=== PATIENT | male | born 1955 | race Caucasian/White ===

== ENCOUNTER 2019-01-09 06:58 | Inpatient (IN) ==
[2019-01-09] MEDS ORDERED: ONDANSETRON INJ 2 MG/ML 2 ML VIAL IV PRN (07:42)
[2019-01-09] MEDS ORDERED: ACETAMINOPHEN 325 MG TAB PO PRN (07:42)
--- OUTSIDE RECORDS SUMMARY | 2019-01-09 07:43 | External Medical Summary | Continuity of Care Document ---
:1955 Author Name Ligia Toribio Address Unavailable Unavailable , Care Team Providers Name Role Phone Tammy [email or web address] PCP, UNKNOWN Unavailable Unavailable Problems Active medical history not documented Allergies and Adverse Reactions Allergy history not documented Medications Medications not documented Procedures Procedures not documented Immunizations Immunizations not documented Plan of Treatment Planned Observations Planned Goals not documented Results No Known Results Results not documented
[2019-01-09] MEDS ORDERED: PNEUMOCOCCAL ADMINISTRATION CHARGE ONE (09:15)
[2019-01-09] MEDS ORDERED: PNEUMOCOCCAL POLYSACCHARIDES 25 MCG/0.5 ML VIAL/SYR IM ONE (09:15)
[2019-01-09] MEDS ORDERED: CARVEDILOL 6.25 MG TAB PO STA (09:30)
--- NOTE | 2019-01-09 09:45 | History & Physical Report ---
Date of Service January 09, 2019 Assessment & Plan (1) Dyspnea: likely due to acute bronchitis, no pneumonia seen on CXR no crackles on exam, just some scattered rhonchi and wheezing bilaterally no rales, no significant edema will treated with Solu Medrol 40 q12, Duoneb complete a 5 day course of Zithromax 500mg daily, got a dose this morning normal WBC, no fever (2) Bronchitis: acute bronchitis with dyspnea, see above treat with Solu Medrol, duonebs, Zithromax (3) Atrial fibrillation: rates controlled, continue Coreg on Coumadin, INR 2.2 (4) DM type 2 (diabetes mellitus, type 2): hyperglycemia due to the Solu Medrol 125mg he got this morning apparently got Lantus 30 units this morning at [facility], will give additional 30 units of Lantus Novolog SS, may need to tighten further depending on sugars (5) HTN (hypertension): BP improved after getting Zestril and Coreg (6) Obesity: recommend weight loss (7) Dyslipidemia: continue Zocor (8) Cough: due to bronchitis, is productive of green sputum History of Present Illness Chief Complaint: cough and shortness of breath Primary Care Provider: NO PCP 63 yo male with history of HTN, chronic atrial fibrillation, insulin dependent diabetes, was transferred to [facility] for acute shortness of breath and one week of cough. The patient says that he has been coughing for about a week. Productive of some green sputum. No blood. No chest pain but feels that chest is tight and congested. He has experienced some night sweats but no fevers or chills. He denies muscle aches, rashes. His appetite has been intact and he has not had nausea or diarrhea. He has not noticed any swelling in his legs. He has been compliant with his medications. After a few days when the symptoms did not get better he went to his doctor. He was given a steroid injection in the office, given an albuterol inhaler. He said that his symptoms did not get better so he went to the [facility]. No evidence of testing there, but he was given Solu Medrol, Lasix 40mg IV, Azithromcyin 500mg and nebulizer treatment. He responded well to the Lasix, diuresed well. There was concerns for some heart failure and he was transferred to [facility] for direct admission. He has no history of CHF. He has chronic afib, rate controlled on Coreg and anticoagulated on Coumadin. He takes his Truclitiy and Lantus 30 units in the morning. Of note he was given the Lantus 30 units in [facility]. He does not keep a close track of his sugars. Home medications include Lasix, Zestril, Coreg, Coumadin, Zocor, Trulicity and Lantus. 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 Beliefs That Will Affect Care: None Current Living Situation: Spouse Other Information That Helps Us Care for You: No Feels Safe at Home: Yes Smoking Status: Never smoker Do You Dip or Chew Tobacco: No Hx Alcohol Use: Yes Alcohol type: beer Hx Substance Use: No Review of Systems Review of Systems: All systems reviewed & are unremarkable except as noted in HPI & below Constitutional: + sweats, + body aches and + weakness; no fever, no chills, no fatigue and no anorexia Respiratory: + cough, + dyspnea, + dyspnea on exertion, + sputum production and + wheezing; no pain with cough Cardiovascular: + dyspnea and + dyspnea at rest; no chest pain, no orthopnea, no palpitations, no syncope and no edema Gastrointestinal: no abdominal pain, no nausea, no vomiting, no constipation and no diarrhea/loose stools Genitourinary: no dysuria, no difficulty urinating, no urinary frequency, no u rinary hesitancy, no urinary incontinence and no nocturia Musculoskeletal: no back pain and no swelling Integumentary: no rash Physical Exam Constitutional: WD/WN, vitals as above + obese Eyes: PERRL, conjunctivae normal, anicteric sclerae ENMT: external ear and nose normal, oropharynx normal Neck: trachea midline, no thyromegaly Respiratory: normal respiratory effort and + cough; no respiratory distress and no labored breathing Auscultation: + rhonchi and + wheezes (bilaterally); no crackles and no rales Cardiovascular: RRR, no murmur, no edema Gastrointestinal (Abdomen): normal bowel sounds, soft, nontender, no hepatosplenomegaly Musculoskeletal: no cyanosis or clubbing, extremities motor strength 5/5 Skin: no rashes, warm and dry Neurologic: patellar DTR's 2+ bilat, sensation intact and PERRL, EOMI, accommodation nl, no face palsy, no dysarthria Psychiatric: A+Ox3, euthymic affect Lymphatic: no cervical or axillary lymphadenopathy Results & Data Vital Signs (Past 12 Hours) Vital Signs Temp Pulse Resp BP Pulse Ox 01/09/19 07:52 36.8 C 88 18 165/106 H 95 Laboratory Results Laboratory Results - last 24 hr 01/09/19 01/09/19 01/09/19 08:05 08:33 10:02 WBC 8.96 RBC 3.86 L Hgb 12.3 L Hct 35.1 L MCV 90.9 MCH 31.9 MCHC 35.0 RDW Std Deviation 50.8 H RDW Coeff of Viola 15.3 H Plt Count 135 MPV 9.8 PT INR Sodium Potassium Chloride Carbon Dioxide Anion Gap BUN Creatinine Est Cr Clr Drug Dosing Est GFR ( Amer) Est GFR (Non-Af Amer) BUN/Creatinine Ratio Glucose POC Glucose 245 H Calcium Troponin I Beta-Hydroxybutyric Acd Hepatitis C Ab Screen Neg 01/09/19 01/09/19 01/09/19 10:02 10:02 11:35 WBC RBC Hgb Hct MCV MCH MCHC RDW Std Deviation RDW Coeff of Viola Plt Count MPV PT 21.2 H INR 2.2 H Sodium 131 L Potassium 4.1 Chloride 97 L Carbon Dioxide 26 Anion Gap 8.0 BUN 28 H Creatinine 1.28 Est Cr Clr Drug Dosing 85.4 Est GFR ( Amer) 68.1 Est GFR (Non-Af Amer) 58.8 BUN/Creatinine Ratio 21.7 H Glucose 368 H* POC Glucose 343 H* Calcium 8.5 Troponin I 0.093 H* Beta-Hydroxybutyric Acd 2.20 Hepatitis C Ab Screen 01/09/19 01/09/19 01/09/19 14:40 16:42 16:44 WBC RBC Hgb Hct MCV MCH MCHC RDW Std Deviation RDW Coeff of Viola Plt Count MPV PT INR Sodium Potassium Chloride Carbon Dioxide Anion Gap BUN Creatinine Est Cr Clr Drug Dosing Est GFR ( Amer) Est GFR (Non-Af Amer) BUN/Creatinine Ratio Glucose POC Glucose 365 H* 345 H* 322 H* Calcium Troponin I Beta-Hydroxybutyric Acd Hepatitis C Ab Screen 01/09/19 01/09/19 20:14 20:15 WBC RBC Hgb Hct MCV MCH MCHC RDW Std Deviation RDW Coeff of Viola Plt Count MPV PT INR Sodium Potassium Chloride Carbon Dioxide Anion Gap BUN Creatinine Est Cr Clr Drug Dosing Est GFR ( Amer) Est GFR (Non-Af Amer) BUN/Creatinine Ratio Glucose POC Glucose 340 H* 313 H* Calcium Troponin I Beta-Hydroxybutyric Acd Hepatitis C Ab Screen Diagnostic Findings XR chest 2V routine HISTORY: dyspnea COMPARISON: None. FINDINGS: No focal lung consolidations to suggest pneumonia. The heart is mildly enlarged. No pleural effusions. No pneumothorax. Mild perihilar interstitial thickening and vascular prominence. This may represent mild congestive change. IMPRESSION: Mild cardiomegaly with mild congestive change. No overt pulmonary edema. Code Status & VTE Plan Code Status full code VTE Prophylaxis Plan VTE Prophylaxis will be ordered: Yes
[2019-01-09 10:32] LABS: Hematocrit (blood only) 35.1 % (42-52); Hemoglobin 12.3 g/dL (14.0-18.0); Mean Corpuscular Volume 90.9 fL (80-100); Mean Platelet Volume 9.8 fL (7.4-10.4); Platelet Count 135 K/uL (130-400); RDW Coefficient of Variation 15.3 % (11.5-14.5); RDW Standard Deviation 50.8 fL (36.4-46.3); Red Blood Count 3.86 M/uL (4.7-6.1); White Blood Count 8.96 K/uL (4.8-10.8)
--- NOTE | 2019-01-09 10:41 | XRay Report ---
XR chest 2V routine HISTORY: dyspnea COMPARISON: None. FINDINGS: No focal lung consolidations to suggest pneumonia. The heart is mildly enlarged. No pleural effusions. No pneumothorax. Mild perihilar interstitial thickening and vascular prominence. This may represent mild congestive change. IMPRESSION: Mild cardiomegaly with mild congestive change. No overt pulmonary edema. Electronically signed by: Jian Levy M.D. 01/09/2019 10:40 AM
[2019-01-09] MEDS: methylPREDNISolone 40 MG in SYRINGE 0 ML IV SCH ×2 (10:43→23:25)
[2019-01-09] MEDS: INSULIN ASPART 100 UNITS/ML 3 ML PEN SC SCH ×4 (10:43→21:25)
[2019-01-09] MEDS: CITALOPRAM 20 MG TAB PO SCH (10:43)
[2019-01-09 10:47] LABS: INR 2.2 (0.9-1.1); Prothrombin Time 21.2 Seconds (9.0-12.0)
[2019-01-09] MEDS: ALBUT/IPRATROP 3MG/0.5MG NEB 3 ML VIAL NEB SCH ×3 (11:11→19:22)
[2019-01-09 11:13] LABS: BUN Creatinine Ratio 21.7 (10-20); Calcium 8.5 mg/dl (8.5-10.1); Creatinine Clr Calc Pharmacy 85.4 ml/min; Est GFR (African American) 68.1; Est GFR (Non-African American) 58.8; Potassium 4.1 mmol/L (3.5-5.1); Troponin I 0.093 ng/ml (0-0.045)
[2019-01-09 11:28] LABS: Beta-Hydroxybutyrate 2.2 mg/dl (0.2-2.81)
[2019-01-09] MEDS ORDERED: INSULIN GLARGINE SOLOSTAR 100 UNITS/ML 3 ML PEN SC STA (11:31)
[2019-01-09] MEDS: LISINOPRIL 10 MG TAB PO SCH (12:45)
[2019-01-09] MEDS ORDERED: INSULIN GLARGINE SOLOSTAR 100 UNITS/ML 3 ML PEN SC ONE (15:38)
[2019-01-09] MEDS ORDERED: WARFARIN SOD 4 MG TAB PO SCH (16:00)
[2019-01-09] MEDS: CARVEDILOL 6.25 MG TAB PO SCH (20:54)
[2019-01-09] MEDS ORDERED: SIMVASTATIN 40 MG TAB PO SCH (21:00)
[2019-01-10 06:13] LABS: Hematocrit (blood only) 36.6 % (42-52); Hemoglobin 13.1 g/dL (14.0-18.0); Mean Corpuscular Hgb Conc 35.8 g/dL (32-36); Mean Corpuscular Volume 90.8 fL (80-100); Mean Platelet Volume 9.8 fL (7.4-10.4); Platelet Count 143 K/uL (130-400); RDW Coefficient of Variation 14.8 % (11.5-14.5); RDW Standard Deviation 49.2 fL (36.4-46.3); Red Blood Count 4.03 M/uL (4.7-6.1); White Blood Count 11.29 K/uL (4.8-10.8)
[2019-01-10 06:27] LABS: INR 2.2 (0.9-1.1); Prothrombin Time 21.2 Seconds (9.0-12.0)
[2019-01-10 06:47] LABS: BUN Creatinine Ratio 26.5 (10-20); Calcium 8.6 mg/dl (8.5-10.1); Creatinine Clr Calc Pharmacy 110.8 ml/min; Est GFR (African American) 94.1; Est GFR (Non-African American) 81.2; Potassium 4.3 mmol/L (3.5-5.1)
[2019-01-10] MEDS: ALBUT/IPRATROP 3MG/0.5MG NEB 3 ML VIAL NEB SCH ×2 (07:17→11:23)
[2019-01-10] MEDS: INSULIN ASPART 100 UNITS/ML 3 ML PEN SC SCH ×2 (08:56→12:48)
[2019-01-10] MEDS: CITALOPRAM 20 MG TAB PO SCH (08:57)
[2019-01-10] MEDS: CARVEDILOL 6.25 MG TAB PO SCH (08:57)
[2019-01-10] MEDS: LISINOPRIL 10 MG TAB PO SCH (08:58)
[2019-01-10] MEDS ORDERED: predniSONE 20 MG TAB PO SCH (09:00)
[2019-01-10] MEDS ORDERED: INSULIN GLARGINE SOLOSTAR 100 UNITS/ML 3 ML PEN SC SCH ×2 (09:00)
[2019-01-10] MEDS ORDERED: AZITHROMYCIN 250 MG TAB PO ONE (12:15)
--- NOTE | 2019-01-17 22:26 | Discharge Summary ---
Date of Service January 17, 2019 Admission HPI Per Admitting Provider 63 yo male with history of HTN, chronic atrial fibrillation, insulin dependent diabetes, was transferred to [facility] for acute shortness of breath and one week of cough. The patient says that he has been coughing for about a week. Productive of some green sputum. No blood. No chest pain but feels that chest is tight and congested. He has experienced some night sweats but no fevers or chills. He denies muscle aches, rashes. His appetite has been intact and he has not had nausea or diarrhea. He has not noticed any swelling in his legs. He has been compliant with his medications. After a few days when the symptoms did not get better he went to his doctor. He was given a steroid injection in the office, given an albuterol inhaler. He said that his symptoms did not get better so he went to the [facility]. No evidence of testing there, but he was given Solu Medrol, Lasix 40mg IV, Azithromcyin 500mg and nebulizer treatment. He responded well to the Lasix, diuresed well. There was concerns for some heart failure and he was transferred to [facility] for direct admission. He has no history of CHF. He has chronic afib, rate controlled on Coreg and anticoagulated on Coumadin. He takes his Truclitiy and Lantus 30 units in the morning. Of note he was given the Lantus 30 units in [facility]. He does not keep a close track of his sugars. Home medications include Lasix, Zestril, Coreg, Coumadin, Zocor, Trulicity and Lantus. Principal Diagnosis Acute bronchitis Discharge Exam Constitutional WD/WN, vitals as above + obese Eyes PERRL, conjunctivae normal, anicteric sclerae ENMT external ear and nose normal, oropharynx normal Neck trachea midline, no thyromegaly Respiratory normal respiratory effort and + cough; no respiratory distress and no labored breathing Auscultation: no crackles and no rales Cardiovascular RRR, no murmur, no edema Gastrointestinal (Abdomen) normal bowel sounds, soft, nontender, no hepatosplenomegaly Musculoskeletal no cyanosis or clubbing, extremities motor strength 5/5 Skin no rashes, warm and dry Neurologic patellar DTR's 2+ bilat, sensation intact and PERRL, EOMI, accommodation nl, no face palsy, no dysarthria Psychiatric A+Ox3, euthymic affect Lymphatic no cervical or axillary lymphadenopathy Discharge Data Allergies Allergy/AdvReac Type Severity Reaction Status Date / Time ALLERGY2 Allergy Uncoded 10/10/02 18:46 Consultations 01/09/19 07:44 Consult Case Management - Discharge Planning Routine Hospital Course (1) Dyspnea: likely due to acute bronchitis, no pneumonia seen on CXR no crackles on exam, just some scattered rhonchi and wheezing bilaterally no rales, no significant edema treated with Solu Medrol 40 q12, Duoneb complete a 5 day course of Zithromax 500mg daily patient feeling much better after 24 hours, responded quickly to steroids will d/c home on Prednisone 40mg daily with taper will complete 3 more days of Zithromax normal WBC, no fever (2) Bronchitis: acute bronchitis with dyspnea, see above treat with Solu Medrol, duonebs, Zithromax d/c home on Prednisone, Albuterol, Zithromax (3) Atrial fibrillation: rates controlled, continue Coreg on Coumadin, INR therapeutic (4) DM type 2 (diabetes mellitus, type 2): hyperglycemia due to the Solu Medrol 125mg he got the morning of admission required higher doses of basal insulin, used Lantus in the hospital will increase his Levemir from 30 to 50 units to use with the Prednisone taper down by 5 for every 10mg decrease in Prednisone specific instructions provided for patient (5) HTN (hypertension): BP improved after getting Zestril and Coreg (6) Obesity: recommend weight loss (7) Dyslipidemia: continue Zocor (8) Cough: due to bronchitis, is productive of green sputum Total Time Total Time Spent Total Time Spent (In Minutes): 40 minutes Total Time Includes: Examination of the Patient, Discharge Planning and Medication Reconciliation Discharge Plan Discharge Items Patient Disposition: Home - Self-Care Reason For Visit: acute bronchitis Discharge Diagnosis: acute bronchitis dyspnea, chest congestion hyperglycemia Condition: Good Discharge Goals: Decrease discomfort, Improve disease control and Improve function Activity: Resume your previous activity Non-emergency contact: Primary Care Provider Call non-emergency contact if: you have any medication questions, your symptoms worsen and you have a fever Follow-up/Referrals: Dean Salas PA-C [Primary Care Provider] - Diet: Carb Consistent or DM2 Addtl Provider Instructions: Medications: - PREDNISONE: 40mg daily with taper, see below for instructions, next dose due tomorrow - AZITHROMYCIN: 500mg daily x 3 more days, next dose due tomorrow - ALBUTEROL: inhaler, use this four times a day for the next 5 days - LEVEMIR: as we discussed, will increase dose while on Prednisone, see detailed instructions below all medications listed as new because there was no med rec on admission, resume all your prior medications Acute bronchitis, dyspnea (shortness of breath) no infiltrate seen on CXR so there is no evidence of pneumonia, no evidence of heart failure improved with steroids and nebulizers and Azithromycin plan for Prednisone taper, 40mg x 2 days, 30mg x 3 days, 20mg x 3 days, 10mg x 2 days and stop continue Azithromycin x 3 more days use Albuterol inhaler four times daily, can purchase Mucinex over the counter, take twice a day to loosen secretions Diabetes, on insulin sugars elevated due to Prednisone follow low carbohydrate diet while on Prednisone will need increased doses of Levemir and want you to take in the morning increase to 50 units on 01/11 and 01/12 45 units on 01/13, 01/14, 01/15 40 units on 01/16, 01/17 and 01/18 go back to 30 units on 01/19 and can take in the evening that day FOLLOW UP - call PCP for follow up in one week Prescriptions: New carvedilol 6.25 mg Tablet 6.25 mg PO BID 30 Days Qty: 60 RF: 0 simvastatin 40 mg Tablet 40 mg PO PM 30 Days Qty: 30 RF: 0 warfarin [Coumadin] 4 mg Tablet 4 mg PO DAILY@1600 30 Days Qty: 30 RF: 0 citalopram 20 mg Tablet 20 mg PO QAM 30 Days Qty: 30 RF: 0 prednisone 10 mg tablet 40 mg PO QAM 10 Days Qty: 25 RF: 0 Continued metformin 500 mg tablet 1,000 mg PO BID RF: 0 Levemir FlexTouch U-100 Insuln 100 unit/mL (3 mL) insulin pen 30 unit subcut HS RF: 0 Trulicity 1.5 mg/0.5 mL pen injector 1.5 mg subcut WK RF: 0 No Action furosemide 20 mg tablet 20 mg PO BID RF: 0 Stand-Alone Forms: My [facility] Discharge Orders: Discharge Order (Routine); Ordered 01/10/19 Ordered By: Angel Guerrero Admission Data Admit Date/Time: 01/09/19 06:58 Attending Provider: Angel Guerrero Admit Provider: Myron Snow Primary Care Provider: Dean Salas Service: Medical Other Interventions: Discharge Summary Assessment (RN) Last Done: 01/10/19 11:36 DC Date/Time DO NOT enter until pt leaves facility: 01/10/19 15:41
== END 2019-01-10 15:41 | disposition home or self-care (01) | DRG 202 ==
LOC: 2E 06:58 → SUATTDRO 06:58 → 4W 15:19
DX: Z68.41 Body mass index [BMI] 40.0-44.9, adult; E78.5 Hyperlipidemia, unspecified; Z79.01 Long term (current) use of anticoagulants; I48.91 Unspecified atrial fibrillation; E11.9 Type 2 diabetes mellitus without complications; E66.9 Obesity, unspecified; I10 Essential (primary) hypertension; J20.9 Acute bronchitis, unspecified

== ENCOUNTER 2023-08-02 18:07 | Inpatient (IN) ==
[2023-08-02 20:38] LABS: Basophils # (auto) 0.05 K/uL (0.00-0.20); Basophils % (auto) 0.5 %; Eosinophils # (auto) 0.25 K/uL (0.00-0.50); Eosinophils % (auto) 2.6 %; Hematocrit (blood only) 34.7 % (42.0-52.0); Hemoglobin 11.9 g/dl (14.0-18.0); Immature Granulocytes # (auto) 0.07 K/uL (0.01-0.20); Immature Granulocytes % (auto) 0.7 %; Lymphocytes # (auto) 1.82 K/uL (1.20-3.40); Lymphocytes % (auto) 19.1 %; Mean Corpuscular Hemoglobin 31.6 pg (25.0-34.0); Mean Corpuscular Hgb Conc 34.3 g/dL (32.0-36.0); Mean Platelet Volume 9.8 fL (9.4-12.4); Monocytes # (auto) 0.91 K/uL (0.11-0.59); Monocytes % (auto) 9.5 %; Neutrophils # (auto) 6.45 K/uL (1.40-6.50); Neutrophils % (auto) 67.6 %; Platelet Count 297 K/uL (130-400); RDW Coefficient of Variation 14.6 % (11.5-14.5); RDW Standard Deviation 49.6 fL (36.4-46.3); Red Blood Count 3.77 M/uL (4.70-6.10); White Blood Count 9.55 K/ul (4.8-10.8)
[2023-08-02 20:56] LABS: Alanine Aminotransferase 18 U/L (7-52); Albumin Globulin Ratio 1.2 (0.9-2); Alkaline Phosphatase 63 U/L (34-104); Anion Gap 10 (3-11); Aspartate Aminotransferase 23 U/L (13-39); BUN Creatinine Ratio 27.6 (10-20); Bilirubin,Total 0.4 mg/dl (0.2-1.0); Blood Urea Nitrogen 34 mg/dl (6-23); Calcium 9.3 mg/dl (8.6-10.3); Carbon Dioxide 23 mmol/L (21-32); Chloride 104 mmol/L (98-107); Est GFR (African American) 69.5 ml/min; Est GFR (Non-African American) 59.9 ml/min; Globulin 3.3 gm/dl (2.5-4.0); Glucose 119 mg/dl (70-99(Fasting)); Magnesium 1.3 mg/dl (1.7-2.4); Potassium 4.3 mmol/L (3.5-5.1); Sodium 137 mmol/L (136-145); Total Protein 7.3 gm/dl (6.0-8.3)
[2023-08-02 21:08] LABS: Troponin I High Sensitivity 107.1 pg/ml (0-20)
[2023-08-02 21:23] LABS: INR 2.8 (0.9-1.1); Partial Thromboplastin Ratio 1.7; Partial Thromboplastin Time 48 Seconds (21-31); Prothrombin Time 28.7 Seconds (9.0-12.0)
--- NOTE | 2023-08-02 22:12 | Emergency Department Note ---
Impression & Plan Wound infection, Atrial fibrillation, DM type 2 (diabetes mellitus, type 2), Elevated troponin ED Provider Note NAME: ISABELLA HUTCHINSON AGE: 67 SEX: M ARRIVES VIA: Walk-In INFORMANT: Patient ED PROVIDER(S): Luis Ng MD CHIEF COMPLAINT: Wound infection PLAN: Disposition: Admit MEDICAL DECISION MAKING: The patient is a pleasant 67-year-old gentleman with a past medical history of hypertension, hyperlipidemia, atrial fibrillation on warfarin, obesity, PAD, GERD who presents emerged department via walk-in accompanied by his daughter for evaluation of worsening right posterior ankle/Achilles ulcer/infection that he reports has been worsening over the past month where it began as a dime size and has progressed since then. The chronology of the patient's care is difficult to follow but he reports following with his primary care doctor in [place] and referred to the wound clinic in [place] where he reports he had only been seen several times. He reports he stopped going to the wound clinic because they "were not doing anything". He further adds that he has seen a vascular surgeon [place] who had proposed an arterial bypass of his lower extremities but he reports that he does not want to proceed with this. He adds that he went to [facility] a month ago for treatment of his ulcer but he reports it was not as bad then as it is now. Patient reports she is currently on doxycycline but understands most recent culture obtained did not grow anything. He reports having purulent drainage from the ulcer site. On my evaluation the patient is no acute distress, afebrile with stable vital signs. Patient's right ankle demonstrates an approximate 3-1/2 cm ulceration over the Achilles region with eschar of the wound bed with scant dried purulence. There is no surrounding crepitus or fluctuance. He has full range of motion of the ankle without difficulty. He has biphasic Doppler right PT AT and DP pulses intact. EKG without overt acute ischemia. CXR negative for acute cardiopulmonary process per my personal preliminary review/interpretation. WBC within normal limits. Platelets within normal limits. H/H approximate to prior range of values without recent for comparison. INR is 2.8, therapeutic. Chemistry without metabolic acidosis. Magnesium 1.3 with repletion provided. Initial high-sensitivity troponin was elevated at 107, nonspecific with delta 2- hour high-sensitivity troponin 99, stable to improving and likely related to the patient's A-fib. Procalcitonin is not elevated. UA without evidence of infection. COVID-19 RNA, RUSSELL test is negative. Surface wound culture was obtained and sent however unlikely to be optimal sample given superficial swab. Plain from the right ankle negative for osseous involvement per my personal independent interpretation. Empiric treatment initiated with IV Zosyn and daptomycin. Case was discussed with Dr. Snow [facility] hospitalist, who will evaluate the patient for admission. Triage Nursing notes reviewed and agree them. Prior/external medical records reviewed Vital Signs: reviewed Differential diagnosis: Cellulitis, abscess, MRSA infection, DVT, necrotizing fasciitis, dermatitis, drug eruption, allergic reaction, as well as other pathologies. ER treatment provided: See below. Diagnostics interpreted by me: ECG: Atrial fibrillation, 86 bpm, PVCs, no overt ST elevation or depression, QTc 437, QRS 116. Cardiac Monitoring: An order for continuous cardiac monitoring was placed and demonstrated atrial fibrillation, 86 bpm, PVCs. Laboratory studies: See below Imaging studies: See below Consultation(s): Case was discussed with Dr. Snow [facility] hospitalist, who will evaluate the patient for admission. HPI: The patient is a pleasant 67-year-old gentleman with a past medical history of hypertension, hyperlipidemia, atrial fibrillation on warfarin, obesity, PAD, GERD who presents emerged department via walk-in accompanied by his daughter for evaluation of worsening right posterior ankle/Achilles ulcer/infection that he reports has been worsening over the past month where it began as a dime size and has progressed since then. The chronology of the patient's care is difficult to follow but he reports following with his primary care doctor in [place] and referred to the wound clinic in [place] where he reports he had only been seen several times. He reports he stopped going to the wound clinic because they "were not doing anything". He further adds that he has seen a vascular surgeon [place] who had proposed an arterial bypass of his lower extremities but he reports that he does not want to proceed with this. He adds that he went to [facility] a month ago for treatment of his ulcer but he reports it was not as bad then as it is now. Patient reports she is currently on doxycycline but understands most recent culture obtained did not grow anything. He reports having purulent drainage from the ulcer site. ROS: See above HPI for pertinent positives & negatives. A total of 10 systems reviewed and were otherwise negative. VITALS:See Below PHYSICAL EXAMINATION: GENERAL: Awake, alert, in no distress, BMI 41.6. HENT: Normocephalic, atraumatic. Oropharynx unremarkable. EYES: Normal conjunctiva. Sclera non-icteric. NECK: Supple. No nuchal rigidity. FROM. No JVD. RESPIRATORY: Clear to auscultation. CARDIAC: Regular rate, irregular rhythm. Extremities warm and well perfused. Pulses equal. ABDOMEN: Soft, non-distended. No tenderness to palpation. No rebound or guarding. No masses. RECTAL: Deferred. MUSCULOSKELETAL: Chest examination reveals no tenderness. The back is symmetrical on inspection without obvious abnormality. There is no CVA tenderness to palpation. No joint edema. LOWER EXTREMITIES: Right ankle demonstrates an approximate 3-1/2 cm ulceration over the Achilles region with eschar of the wound bed with scant dried purulence. There is no surrounding crepitus or fluctuance. He has full range of motion of the ankle without difficulty. He has biphasic Doppler right PT AT and DP pulses intact. NEURO: Normal sensorium. No sensory or motor deficits noted. SKIN: No rash or jaundice noted. 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 Beliefs That Will Affect Care: None Current Living Situation: Spouse Other Information That Helps Us Care for You: No Feels Safe at Home: Yes Safety Concerns: Feels Safe At This Time Assistive Devices: CPAP and Glasses Allergies Allergies Allergy/AdvReac Type Severity Reaction Status Date / Time cephalexin AdvReac Severe unknown Verified 08/02/23 22:51 organ elevated enzymes Home Meds Home Medications Medication Instructions Recorded Confirmed metformin 500 mg tablet 1,000 mg PO BID 01/10/19 08/02/23 carvedilol 12.5 mg tablet 6.25 mg PO BID 08/02/23 08/02/23 cholecalciferol (vitamin D3) 50 50 mcg PO DAILY 08/02/23 08/02/23 mcg (2,000 unit) tablet (Vitamin D3) citalopram 20 mg tablet 20 mg PO DAILY 08/02/23 08/02/23 doxycycline monohydrate 100 mg 100 mg PO DAILY 08/02/23 08/02/23 tablet eplerenone 25 mg tablet 25 mg PO DAILY 08/02/23 08/02/23 febuxostat 40 mg tablet 120 mg PO DAILY 08/02/23 08/02/23 gabapentin 300 mg capsule 300 mg PO TID 08/02/23 08/02/23 geriatric [id number] 1 tab PO DAILY 08/02/23 08/02/23 insulin glargine 100 unit/mL (3 30 unit subcut PM 08/02/23 08/02/23 mL) subcutaneous pen (Basaglar KwikPen U-100 Insulin) omeprazole 40 mg capsule,delayed 40 mg PO DAILY 08/02/23 08/02/23 release quetiapine 25 mg tablet 25 mg PO HS 08/02/23 08/02/23 tramadol 50 mg tablet 50 mg PO Q6 PRN Pain 08/02/23 08/02/23 warfarin 4 mg tablet (Jantoven) 4 mg PO DAILY 08/02/23 08/02/23 Results & Data (ED) Vital Signs Vital Signs - 24 hr 08/02/23 19:08 08/02/23 19:52 08/02/23 19:53 Temperature 36.7 C Temperature Source Oral Pulse Rate 75 Pulse Rate [Finger] 84 Respiratory Rate 16 18 Respiratory Effort / Characteristics Non-Labored Spontaneous Non-Labored Respiratory Depth Normal Normal Respiratory Pattern Regular Blood Pressure 151/83 H Blood Pressure [Right Arm] 154/115 H Blood Pressure Mean 105 Blood Pressure Mean [Right Arm] 128 Pulse Oximetry 98 98 Oxygen Delivery Method Room Air Room Air Room Air Sepsis Recent Fever Within 48 Hours No Sepsis New/Unexplained Change in Mental Status N/A Sepsis Action Taken by Nursing No Action Required 08/02/23 20:52 08/02/23 21:15 08/02/23 21:15 Temperature Temperature Source Pulse Rate 85 82 Pulse Rate [Finger] 85 Respiratory Rate 14 12 Respiratory Effort / Characteristics Non-Labored Spontaneous Respiratory Depth Normal Respiratory Pattern Blood Pressure Blood Pressure [Right Arm] 141/83 H Blood Pressure Mean Blood Pressure Mean [Right Arm] 102 Pulse Oximetry 98 Oxygen Delivery Method Room Air Sepsis Recent Fever Within 48 Hours Sepsis New/Unexplained Change in Mental Status Sepsis Action Taken by Nursing 08/02/23 21:16 08/02/23 21:16 08/02/23 21:20 Temperature Temperature Source Pulse Rate 86 66 Pulse Rate [Finger] Respiratory Rate 17 20 Respiratory Effort / Characteristics Respiratory Depth Respiratory Pattern Blood Pressure 171/89 H Blood Pressure [Right Arm] Blood Pressure Mean 110 Blood Pressure Mean [Right Arm] Pulse Oximetry Oxygen Delivery Method Sepsis Recent Fever Within 48 Hours Sepsis New/Unexplained Change in Mental Status Sepsis Action Taken by Nursing 08/02/23 21:30 08/02/23 21:30 08/02/23 21:40 Temperature Temperature Source Pulse Rate 78 72 Pulse Rate [Finger] Respiratory Rate 16 18 Respiratory Effort / Characteristics Respiratory Depth Respiratory Pattern Blood Pressure 160/99 H Blood Pressure [Right Arm] Blood Pressure Mean 129 Blood Pressure Mean [Right Arm] Pulse Oximetry Oxygen Delivery Method Sepsis Recent Fever Within 48 Hours Sepsis New/Unexplained Change in Mental Status Sepsis Action Taken by Nursing 08/02/23 21:50 08/02/23 22:00 08/02/23 22:00 Temperature Temperature Source Pulse Rate 75 70 Pulse Rate [Finger] Respiratory Rate 13 19 Respiratory Effort / Characteristics Respiratory Depth Respiratory Pattern Blood Pressure 135/83 Blood Pressure [Right Arm] Blood Pressure Mean 97 Blood Pressure Mean [Right Arm] Pulse Oximetry Oxygen Delivery Method Sepsis Recent Fever Within 48 Hours Sepsis New/Unexplained Change in Mental Status Sepsis Action Taken by Nursing 08/02/23 22:10 08/02/23 23:30 Temperature Temperature Source Pulse Rate 79 85 Pulse Rate [Finger] Respiratory Rate 18 20 Respiratory Effort / Characteristics Respiratory Depth Respiratory Pattern Blood Pressure Blood Pressure [Right Arm] Blood Pressure Mean Blood Pressure Mean [Right Arm] Pulse Oximetry 95 Oxygen Delivery Method Room Air Sepsis Recent Fever Within 48 Hours Sepsis New/Unexplained Change in Mental Status Sepsis Action Taken by Nursing Laboratory Data Attestation: I reviewed the patient's lab results. 08/02/23 19:55 08/02/23 19:55 Lab Results 08/02/23 08/02/23 08/02/23 Range/Units 19:55 22:12 23:15 WBC 9.55 (4.8-10.8) K/ul RBC 3.77 L (4.70-6.10) M/uL Hgb 11.9 L (14.0-18.0) g/dl Hct 34.7 L (42.0-52.0) % MCV 92.0 (80.0-100.0) fL MCH 31.6 (25.0-34.0) pg MCHC 34.3 (32.0-36.0) g/dL RDW Std Deviation 49.6 H (36.4-46.3) fL RDW Coeff of Viola 14.6 H (11.5-14.5) % Plt Count 297 (130-400) K/uL MPV 9.8 (9.4-12.4) fL Immature Gran % (Auto) 0.7 % Neut % (Auto) 67.6 % Lymph % (Auto) 19.1 % Schley % (Auto) 9.5 % Eos % (Auto) 2.6 % Baso % (Auto) 0.5 % Neut # (Auto) 6.45 (1.40-6.50) K/uL Lymph # (Auto) 1.82 (1.20-3.40) K/uL Schley # (Auto) 0.91 H (0.11-0.59) K/uL Eos # (Auto) 0.25 (0.00-0.50) K/uL Baso # (Auto) 0.05 (0.00-0.20) K/uL Immature Gran # (Auto) 0.07 (0.01-0.20) K/uL PT 28.7 H (9.0-12.0) Seconds INR 2.8 H (0.9-1.1) APTT 48 H (21-31) Seconds PTT Ratio 1.7 Sodium 137 (136-145) mmol/L Potassium 4.3 (3.5-5.1) mmol/L Chloride 104 (98-107) mmol/L Carbon Dioxide 23 (21-32) mmol/L Anion Gap 10 (3-11) BUN 34 H (6-23) mg/dl Creatinine 1.23 (0.6-1.4) mg/dl Est Cr Clr Drug Dosing Not Reportable Est GFR ( Amer) 69.5 ml/min Est GFR (Non-Af Amer) 59.9 ml/min BUN/Creatinine Ratio 27.6 H (10-20) Glucose 119 H (70-99(Fasting)) mg/dl Lactate 1.6 (0.4-2.0) mmol/L Calcium 9.3 (8.6-10.3) mg/dl Magnesium 1.3 L (1.7-2.4) mg/dl Total Bilirubin 0.4 (0.2-1.0) mg/dl AST 23 (13-39) U/L ALT 18 (7-52) U/L Alkaline Phosphatase 63 (34-104) U/L Troponin I High Sens 107.1 H* 99.1 H* (0-20) pg/ml Total Protein 7.3 (6.0-8.3) gm/dl Albumin 4.0 (3.4-5.0) gm/dl Globulin 3.3 (2.5-4.0) gm/dl Albumin/Globulin Ratio 1.2 (0.9-2) Procalcitonin 0.14 (0-0.5) ng/ml Urine Color Yellow Urine Appearance Clear (Clear) Urine pH 5.0 (4.5-7.5) Ur Specific [place] 1.020 (1.000-1.030) Urine Protein Negative (Negative) Urine Glucose (UA) Negative (Negative) Urine Ketones Negative (Negative) Urine Blood Negative (Negative) Urine Nitrite Negative (Negative) Urine Bilirubin Negative (Negative) Urine Urobilinogen Negative (Negative) Ur Leukocyte Esterase Negative (Negative) SARS-CoV-2, RNA, NAAT NEGATIVE (NEGATIVE) Administered Medications Magnesium Sulfate/Dextrose (Magnesium Sulfate / D5w) 1 gm in 100 mls @ 100 mls/hr IV Q1H RADHA Stop: 08/03/23 01:07 Last Admin: 08/03/23 00:47 Dose: 100 mls/hr Documented By: Infusion: 08/03/23 00:47 Dose: Infused Documented By: Admin: 08/02/23 23:51 Dose: 100 mls/hr Documented By: IBLL Discontinued Medications Piperacillin Sod/Tazobactam Sod (Zosyn) 4.5 gm in 100 mls @ 200 mls/hr IV NOW ONE Stop: 08/02/23 23:35 Last Infusion: 08/03/23 00:09 Dose: Infused Documented By: Admin: 08/02/23 23:18 Dose: 200 mls/hr Documented By: BILL Magnesium Sulfate/Dextrose (Magnesium Sulfate / D5w) 1 gm in 100 mls @ 100 mls/hr IV NOW STA Stop: 08/03/23 00:06 Last Admin: 08/02/23 23:16 Dose: Not Given Documented By: BILL Discharge Plan Visit Data Chief Complaint: Infection, Wound Stated Complaint: INFECTED ABCESS ON RT LEG ED Provider: Luis Ng Discharge Problem: Wound infection, Atrial fibrillation, DM type 2 (diabetes mellitus, type 2), Elevated troponin Forms Stand Alone Forms: [facility] Prescriptions Prescriptions: No Action metformin 500 mg tablet 1,000 mg PO BID carvedilol 12.5 mg tablet 6.25 mg PO BID citalopram 20 mg tablet 20 mg PO DAILY eplerenone 25 mg tablet 25 mg PO DAILY cholecalciferol (vitamin D3) [Vitamin D3] 50 mcg (2,000 unit) Tablet 50 mcg PO DAILY febuxostat 40 mg tablet 120 mg PO DAILY Rx Instructions: 3 tablet dose insulin glargine [Basaglar KwikPen U-100 Insulin] 100 unit/mL (3 mL) Insulin Pen 30 unit SUBCUT PM gabapentin 300 mg Capsule 300 mg PO TID tramadol 50 mg tablet 50 mg PO Q6 MDD 200mg PRN (Reason: Pain) warfarin [Jantoven] 4 mg tablet 4 mg PO DAILY Certa-Gregg Silver Tablet 1 tab PO DAILY quetiapine 25 mg tablet 25 mg PO HS omeprazole 40 mg capsule,delayed release(DR/EC) 40 mg PO DAILY doxycycline monohydrate 100 mg tablet 100 mg PO DAILY Rx Instructions: take for 10 days...ordered 07/27/23 Referrals Referrals: Dean Salas PA-C [Primary Care Provider] - Discharge Problem: Atrial fibrillation Qualifiers: Atrial fibrillation type: unspecified Qualified Code(s): I48.91 - Unspecified atrial fibrillation DM type 2 (diabetes mellitus, type 2) Qualifiers: Diabetes mellitus intermediate manager insulin use: unspecified intermediate manager insulin use status Diabetes mellitus complication status: with skin complications
[2023-08-02] MEDS ORDERED: DAPTOmycin 625 MG in SYRINGE 0 ML IV STA (23:06)
[2023-08-02] MEDS ORDERED: PIPERACILLIN/TAZOBACTAM 4.5 GM/100 ML BAG IV ONE (23:06)
[2023-08-02] MEDS ORDERED: MAGNESIUM SULFATE / D5W 1 GM/100 ML BAG IV STA (23:07)
[2023-08-02 23:33] LABS: Appearance Urine Clear (Clear); Bilirubin Urine Negative (Negative); Blood Urine Negative (Negative); Color Urine Yellow; Glucose Urine UA Negative (Negative); Ketones Urine Negative (Negative); Leukocyte Esterase Urine Negative (Negative); Nitrite Urine Negative (Negative); Protein Urine Negative (Negative); Urobilinogen Urine Negative (Negative)
[2023-08-02] MEDS: MAGNESIUM SULFATE / D5W 1 GM/100 ML BAG IV SCH (23:51)
[2023-08-03] MEDS: MAGNESIUM SULFATE / D5W 1 GM/100 ML BAG IV SCH (00:47)
[2023-08-03] MEDS ORDERED: HYDROmorphone INJ 0.5 MG/0.5 ML SYR IV STA (00:54)
[2023-08-03] MEDS ORDERED: MELATONIN 3 MG TAB PO STA (00:54)
--- NOTE | 2023-08-03 00:57 | History & Physical Report ---
Date of Service August 03, 2023 Assessment & Plan (1) Foot pain, right: Plan: -Symptoms concerning for RLE foot/ankle cellulitis w/ possible underlying osteomyelitis given this pt's considerable expanse of risk factors -Currently afebrile, hemodynamically stable, no leukocytosis- not meeting SIRS criteria on admission -XR of R ankle w/o obvious bony erosions/change concerning for osteomyelitis but will obtain MRI R foot/ankle for definitive imaging -Continue Zosyn, daptomycin started in ER -Wound Cx pending -BCx pending -Podiatry consulted -Will obtain PCT, ESR, CRP for further evaluation -Monitor CBC (2) Open ankle wound: Plan: -Likely wound infection and management as above -Wound culture ordered -Wound care consult placed (3) Elevated troponin: Plan: -Pt is free of ACS symptoms and EKG did not feature ST change concerning for ischemia -Troponin elevation likely type II AR/demand from acute illness + atrial fibrillation -Downtrending, 107->99, will obtain one more with AM labs and no further trending if continues to decrease -Deferring TTE for now (4) Hypomagnesemia: Plan: -Mg 1.3 on admission -Likely cause of pt's atrial fibrillation along with acute infection -Repleted in ER -Monitor Mg (5) Anemia: Plan: -Hgb 11.9 on admission, appears close to baseline -Likely anemia of chronic disease -No bleeding concern at present -Monitor CBC (6) HTN (hypertension): Plan: -BP stable -Continue carvedilol, eplerenone (7) Dyslipidemia: Plan: -Pt is surprisingly not on a statin despite his multiple comorbidities including DM2 w/ complication leading to PAD/PVD -Deferring statin initiation to PCP (8) DM type 2 (diabetes mellitus, type 2): Plan: -DM2 w/ complications of vascular disease and now with possible osteomyelitis -Hold home metformin, was previously on Trulicity per EMR -Lantus, SSI -Continue gabapentin and Celexa for neuropathy (9) Atrial fibrillation: Plan: -Pt is currently in atrial fibrillation, likely precipitated by hypomagnesemia + acute infection -Currently rate-controlled -Normally anticoagulated with warfarin, INR 2.8 and therapeutic on admission -Will hold warfarin for now since therapeutic and possibility of surgical intervention in near future pending clinical course -Continue carvedilol -Telemetry monitoring (10) Sleep apnea: Plan: -CPAP Hs (11) Congestive heart failure: Plan: -Not in exacerbation presently -CXR does not demonstrate congestion, pt is also saturating well on RA w/ clear lung exam -Continue carvedilol, eplerenone -Pt was previously on Lasix but seemingly discontinued per EMR (12) GERD (gastroesophageal reflux disease): Plan: -Continue omeprazole (13) Depression: Plan: -Continue Celexa (14) Gout: Plan: -Continue febuxostat (15) Insomnia: Plan: -Continue Seroquel Plan FENGI: DM2 Code status: Full DVT prophylaxis: Holding warfarin, therapeutic INR presently Isolation: None Unit: Medical/surgical with telemetry Disposition planning: Anticipate need for SNF History of Present Illness Chief Complaint: Foot pain Primary Care Provider: Dean Salas PA-C Pt is 67 yo M with PMH HTN, HLD, DM2 w/ neuropathy, PAD/PVD, pAF, TOSIN, insomnia, depression, CHF, GERD, gout presenting with foot pain. Pt reports ongoing R foot and ankle pain for past few months. He does have an open wound of posterior ankle as well. He did see vascular surgery recently and his bypass surgery is scheduled approximately 1 week from now. Pt notes over the past month his pain has acutely worsened and associated with some warmth and swelling of the foot which has caused significant pain with ambulation. Notes his ankle wound has grown and become malodorous w/ purulent drainage. Also reports subjective fever/chills over past month. He was started on doxycycline recently on 07/27. Pt arrived to ER hemodynamically stable. Initial evaluation significant for Hgb 11.9, INR 2.8, Mg 1.3, troponin 107 -> 99, negative UA, EKG demonstrating AF without significant ischemic change. R ankle XR does not have any obvious bony abnormalities. ER interventions include Mg 2g IV, Zosyn, daptomycin. At present, pt reports continued pain. No new complaints. Allergies Allergy/AdvReac Type Severity Reaction Status Date / Time cephalexin AdvReac Severe unknown Verified 08/02/23 22:51 organ elevated enzymes Home Medications Medication Instructions Recorded Confirmed Type metformin 500 mg tablet 1,000 mg PO BID 01/10/19 08/02/23 History carvedilol 12.5 mg tablet 6.25 mg PO BID 08/02/23 08/02/23 History cholecalciferol (vitamin D3) 50 50 mcg PO DAILY 08/02/23 08/02/23 History mcg (2,000 unit) tablet (Vitamin D3) citalopram 20 mg tablet 20 mg PO DAILY 08/02/23 08/02/23 History doxycycline monohydrate 100 mg 100 mg PO DAILY 08/02/23 08/02/23 History tablet eplerenone 25 mg tablet 25 mg PO DAILY 08/02/23 08/02/23 History febuxostat 40 mg tablet 120 mg PO DAILY 08/02/23 08/02/23 History gabapentin 300 mg capsule 300 mg PO TID 08/02/23 08/02/23 History geriatric ywabkzcu-tzkh-uopl 1 tab PO DAILY 08/02/23 08/02/23 History insulin glargine 100 unit/mL (3 30 unit subcut PM 08/02/23 08/02/23 History mL) subcutaneous pen (Basaglar KwikPen U-100 Insulin) omeprazole 40 mg capsule,delayed 40 mg PO DAILY 08/02/23 08/02/23 History release quetiapine 25 mg tablet 25 mg PO HS 08/02/23 08/02/23 History tramadol 50 mg tablet 50 mg PO Q6 PRN Pain 08/02/23 08/02/23 History warfarin 4 mg tablet (Jantoven) 4 mg PO DAILY 08/02/23 08/02/23 History Past Med/Surg History Medical History Diverticular disease Sleep apnea Hyperlipidemia Congestive heart failure Atrial fibrillation Bronchitis Surgical History History of bowel resection Family History Other Congestive heart failure Social History Smoking Status: Never smoker Do You Dip or Chew Tobacco: No; Hx Alcohol Use: Yes Alcohol type: beer Hx Substance Use: No Preferred Language: Hungarian Communication Ability: Effective Box Gluer Required: No Beliefs That Will Affect Care: None Current Living Situation: Spouse Other Information That Helps Us Care for You: No Feels Safe at Home: Yes Safety Concerns: Feels Safe At This Time Assistive Devices: None Review of Systems Review of Systems: Per HPI/Subjective Physical Exam Physical Exam: General: tired-appearing, no acute distress HEENT: PERRL, EOMI, conjunctivae clear without injection, anicteric sclerae, moist mucous membranes, clear oropharynx without exudate or erythema Neck: supple, trachea midline, no thyromegaly, no JVD, no cervical lymphadenopathy CV: Irregularly irregular rhythm, normal rate, normal S1 and S2, no murmurs Resp: CTAB, no increased work of breathing, no crackles or wheezes Abd: Soft, nontender, nondistended, no guarding or rebound, no hepatosplenomegaly MSK: Normal bulk of all four extremities Neuro: AOx3, no focal motor deficits though diminished sensorium of distal RLE compared to LLE Skin: stasis dermatitis changes of distal RLE along with mild warmth, swelling and overlying scattered erythema. Posterior ankle ulcerated wound with notable eschar and necrotic debris, scant purulent drainage expressed, very tender to palpation Results & Data Results & Data Vital Signs (Past 12 Hours) Vital Signs Temp Pulse Pulse Resp BP BP Pulse Ox 08/02/23 23:30 85 20 95 08/02/23 22:10 79 18 08/02/23 22:00 70 19 08/02/23 22:00 135/83 08/02/23 21:50 75 13 08/02/23 21:40 72 18 08/02/23 21:30 78 16 08/02/23 21:30 160/99 H 08/02/23 21:20 66 20 08/02/23 21:16 171/89 H 08/02/23 21:16 86 17 08/02/23 21:15 82 12 08/02/23 21:15 85 08/02/23 20:52 85 14 141/83 H 98 08/02/23 19:53 84 18 154/115 H 98 08/02/23 19:52 08/02/23 19:08 36.7 C 75 16 151/83 H 98 O2 Del Method 08/02/23 23:30 Room Air 08/02/23 22:10 08/02/23 22:00 08/02/23 22:00 08/02/23 21:50 08/02/23 21:40 08/02/23 21:30 08/02/23 21:30 08/02/23 21:20 08/02/23 21:16 08/02/23 21:16 08/02/23 21:15 08/02/23 21:15 08/02/23 20:52 Room Air 08/02/23 19:53 Room Air 08/02/23 19:52 Room Air 08/02/23 19:08 Room Air Supervising Physician Co-Signing Physician Notes Attending addendum: I have physically seen this patient, have supervised the medical residents activities, and agree with the H&P unless as otherwise noted. Assessment and Plan: Right lower extremity ulceration- Secondary to local trauma Concern regarding possible osteomyelitis Order MRI Zosyn 4.5 g IV every 8 hours Vancomycin IV for pharmacokinetic monitoring Consult podiatry Consult wound care Follow results of wound culture and sensitivity Elevated troponin/hypertension/atrial fibrillation- The patient will be admitted to telemetry for serial cardiac enzymes, serial EKG's, cardiac rhythm monitoring and a 2-D echocardiogram with Dopplers. Troponin 107 with follow-up 99.1 on admission, likely type II supply/demand mismatch and atrial fibrillation Repeat CBC with differential, renal function panel and troponin in a.m. Continue carvedilol and eplerenone Optimize magnesium Hypomagnesemia- Magnesium 1.3 on admission Replace IV, recheck laboratories in a.m. 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
[2023-08-03] MEDS ORDERED: GADOBUTROL 65ML VIAL IV ONE (05:04)
[2023-08-03] MEDS ORDERED: HYDROmorphone INJ 1 MG/ML SYRINGE IV STA (05:05)
[2023-08-03] MEDS: PIPERACILLIN/TAZOBACTAM 4.5 GM in DEXTROSE 5% MINI-B 100 ML IV SCH ×3 (05:31→20:01)
[2023-08-03] MEDS: ACETAMINOPHEN 500 MG TAB PO SCH ×3 (05:32→20:01)
--- NOTE | 2023-08-03 06:38 | XRay Report ---
XR ankle RT min 3V routine CLINICAL HISTORY: Posterior ankle ulcer, evaluate for osseous involvement. COMPARISON: None FINDINGS: Extensive vascular calcification is incidentally noted. There is no acute fracture. Note i s made of soft tissue defect of the posterior right ankle overlying the Achilles. This represents a w ound. There are associated linear and dystrophic soft tissue calcifications. Mild osseous irregularit y of the calcaneus at the Achilles insertion is noted. No additional bony erosions are identified. IMPRESSION: 1. No acute fractures within the right ankle. 2. Posterior right ankle wound involving the Achilles with associated linear and dystrophic soft tiss ue calcifications. Cortical irregularity and subtle lucency of the posterior superior calcaneus at th e Achilles insertion. This is nonspecific however acute osteomyelitis cannot be excluded. ACT 112: Negative or not required by law. Electronically signed by: Denilson Louis M.D. 08/03/2023 6:36 AM
--- NOTE | 2023-08-03 07:10 | XRay Report ---
XR chest 1V not portable CLINICAL HISTORY: Sepsis. COMPARISON STUDY: Chest radiograph January 09, 2019. FINDINGS: Lung volumes are normal. Lungs are clear. There is no pneumothorax or pleural effusion. Car diomegaly is unchanged. Mediastinal contours are normal. There is no evidence for pulmonary edema. IMPRESSION: No acute cardiopulmonary findings. No change in appearance of the chest. ACT 112: Negative or not required by law. Electronically signed by: Denilson Louis M.D. 08/03/2023 7:09 AM
--- OUTSIDE RECORDS SUMMARY | 2023-08-03 07:19 | External Medical Summary | Continuity of Care Document ---
Author Name Unknown Organization [facility] Address [address] [place] [address] [id number] Encounter [facility] JEANCARLOSR [id number] Date(s): 07/07/23 - 07/07/[address] [phone] Encounter Diagnosis Chronic wound(Discharge Diagnosis) - 07/07/23 Discharge Disposition: Home or Self Care Attending Physician: MD Perkins Ravindra Allergies, Adverse Reactions, Alerts No Known Medication Allergies Functional Status 07/07/23 History of Fall in Last 3 Months Clayton N o Presence of Secondary Diagnosis Clayton No Use of Ambulatory Aid Clayton None/bedrest /nurse assist IV/Heparin Lock Fall Risk Clayton No Gait/Transferring Fall Risk Clayton Normal /bedrest/immobile Mental Status Fall Risk [place] Oriented t o own ability Clayton Fall Risk Score 0 Clayton Fall Risk No Risk Medications No Known Medications Problem List Diagnosis Diagnosis Type Effective Dates Health Status Cl inical Service Informant Chronic wound Discharge Diagnosis 07/07/23 Non-Specified Results Laboratory List Name Date C Reactive Protein, Quantitation (CRP, Q uantitation) 07/07/23 Complete Blood Count w Differential (CBC w Platelets and Diff) 07/07/23 Comprehensive Metabolic Panel (CMP) 06/28 Erythrocyte Sedimentation Rate (ESR) 06/19 Most recent to oldest [Reference Range]: 1 CReacProt [<0.50 mg/dL] 2.05 mg/dL *HI* (07/07/23 1:01 PM) eGFR CKD-EPI [>60 mL/min/1.73 m2] 52 mL/ min/1.73 m2 *LOW* (07/07/23 1:01 PM) Estimated CrCl 70.55 mL/min (07/07/23 1:58 PM) MPV [9.0-12.2 fL] 10.1 fL (07/07/23 1:01 PM) Immature Gran% 1.7 % (07/07/23 1:01 PM) Neut% 64.3 % (07/07/23 1: PM) Lymph% 21.9 % (07/07/23 1: PM) Sharp% 8.3 % (07/07/23 1:01 PM) Baso% 0.9 % (07/07/23 1: PM) Eos% 2.9 % (07/07/23 1: PM) Immat Gran, Abs [0-0.4 K/uL] 0.18 K/uL (07/07/23 1: PM) Neut, Abs [2.0-7.7 K/uL] 6.65 K/uL (07/07/23: PM) Lymph, Abs [1.0-3.4 K/uL] 2.27 K/uL (07/07/23 PM) Sharp, Abs [0-1.0 K/uL] 0.86 K/uL (07/07/23 1: PM) Baso, Abs [0-0.1 K/uL] 0.09 K/uL (07/07/23 1: PM) Eos, Abs [0-0.5 K/uL] 0.30 K/uL (07/07/23:01 PM) Type of Diff: AUTO (07/07/23 PM) RDW [11.5-14.2 %] 15.2 % *HI* (07/07/23 PM) Anion Gap [5-14 mmol/L] 15 mmol/L *HI* (07/07/23 PM) Alb [3.5-5.2 g/dL] 4.6 g/dL (07/07/23: PM) Alk Phos [40-130 unit/L] 80 unit/L (07/07/23: PM) ALT [0-41 unit/L] 26 unit/L (07/07/23: PM) AST [0-40 unit/L] 30 unit/L (07/07/23: PM) BUN [6-23 mg/dL] 35 mg/dL *HI* (07/07/23 PM) Ca [8.4-10.2 mg/dL] 10.8 mg/dL *HI* (07/07/23 1: PM) Cl- [98-107 mmol/L] 102 mmol/L (07/07/23 PM) HCO3 [22-29 mmol/L] 22 mmol/L (07/07/23 PM) Cret [0.70-1.30 mg/dL] 1.45 mg/dL *HI* (07/07/23 PM) ESR [0-40 mm/hr] 28 mm/hr (07/07/23 PM) Glu [74-109 mg/dL] 91 mg/dL 1 (07/07/23: PM) Hct [39-48 %] 40.4 % (07/07/23 PM) Hgb [13.0-17.0 g/dL] 12.9 g/dL *LOW* (07/07/23 PM) K [3.5-5.1 mmol/L] 5.1 mmol/L (07/07/23 PM) MCH [28-33 pg] 30.9 pg (07/07/23: PM) MCHC [32-36 g/dL] 31.9 g/dL *LOW* (07/07/23 PM) MCV [81-96 fL] 96.7 fL *HI* (07/07/23: PM) Na [136-145 mmol/L] 139 mmol/L (07/07/23: PM) Plts [150-350 K/uL] 264 K/uL (07/07/23 PM) RBC [4.40-5.60 M/uL] 4.18 M/uL *LOW* (07/07/23 PM) T Bili [0.0-1.2 mg/dL] 0.3 mg/dL (07/07/23: PM) Prot [6.4-8.3 g/dL] 8.0 g/dL (07/07/23: PM) WBC [4.0-10.4 K/uL] 10.35 K/uL (07/07/23: PM) 1Result Comment: ADA recommendation for FASTING Serum/Plasma Glucose: Normal: 70-100 mg/dL Prediabetes: 100-125 mg/dL Diabetes: 126 mg/dL or higher Radiology Reports * Exam Date Time Procedure Performing Provider Status 07/07/23 1:01 PM XR Foot Complete 3+ Views Right Iona Gonzalez; Final Notes: (XR Foot Complete 3+ Views Right) Reason For Exam: open wound, right heel. XR Foot Complete 3+ Views Right EXAMINATION: XR Foot Complete 3+ Views Right CLINICAL HISTORY: open wound, right heel. COMPARISON: None FINDINGS: 3 views of the right foot obtained nonweightbearing. No acute fracture or dislocation. Degenerativechanges throughout, most conspicuous at the midfoot with bony consolidation and periosteal new boneformation. Kuldip deformity. Superficial soft tissue defect at the posterior ankle with underlyingAchilles tendon ossification and stranding in the Kager fat pad. Atherosclerotic vascular calcifications. IMPRESSION: Posterior ankle superficial soft tissue defect with underlying Achilles tendon ossification. No radiographic evidence of osteomyelitis. Dr. Nilton Flanagan is the dictating resident. Finalized reports status indicates that the attending has reviewed the images and report, and agrees with the interpretation. Preliminary report status should be regarded as NOT interpreted by the attending radiologist. Workstation ID: [id number] Final Dictated by:DO Flanagan Avery Dictated DT/TM:07/07/2023 4:39 Resident:DO Flanagan Avery Signed by:MD Grullon Pamela L Signed (Electronic Signature):07/07/2023 4:38 p Vital Signs Most recent to oldest [Reference Range]: 1 2 Height 182.9 cm (07/07/23 12:29 PM) Patient Weight 139.3 kg (07/07/23 12:29 PM) Body Mass Index 41.64 kg/m2 (07/07/23 12:29 PM) Temperature [36.5-37.9 DegC] 36.6 DegC (07/07/23 4:54 PM) 37 DegC (07/07/23 12:29 PM) Heart Rate 67 bpm (07/07/23 4:54 PM) 76 bpm (07/07/23 12:29 PM) Respiratory Rate 20 br/min (07/07/23 4:54 PM) 22 br/min (07/07/23 12:29 PM) Blood Pressure 128/78mmHg (07/07/23 4:54 PM) 147/89mmHg (07/07/23 12:29 PM) Mean Blood Pressure 101 mmHg (07/07/23 12:29 PM) Cuff Pulse Pressure 50 mmHg (07/07/23 4:54 PM) 58 mmHg (07/07/23 12:29 PM) BP Location # 1 Right Arm (07/07/23 4:54 PM) Social History Social History Type Response Smoking Status Never smoked cigaret rob Sex Male Emergency department Summary note * MD Morales Elizabeth B: MODIFY MD Morales Elizabeth B: MODIFY, MODIFY Event Display: ED Summary Authored Date: [id number] Basic Information Time Seen: MD Tong Aaron 07/07/2023 16:23 Chief Complaint right ankle wound x10 weeks getting worse. finished IV antibiotics and its continuing to get worse.increased pain and swelling. hx diabetes. sees wound specialists outpatient. History of Present Illness Patient is 67-year-old male withpast medical history significant for type 2 diabetescomplicatedby neuropathy,peripheral arterial disease who is presenting today due to concerns for ongoingright ankle wound. He also has remote history 10+ years ago ofAchilles tendon repair. States that over the last 10 weeks he noticeda small wound that has progressedto larger woundonAchilles region of right ankle. Thiswound was not related to previous remote history of Achilles repair. He denies any fevers chillsheadache malaise rigors or other acute complaints but does note ongoing pain. He has been taking Tylenol and hasbeen following with outpatient wound care and vascular surgery. They are applying wet-to-dry's. Unfortunately there was planintervention however patient was tooactive during planned intervention so procedure was aborted. He is presenting todayafter PCP [facility] [facility]. Home meds include Tylenoland gabapentin. Does have history of kidney injury in the setting of Bactrim use. Review of Systems 10 point review of systems performed and negative as otherwise noted in HPI. Physical Exam Vitals & Measurements T:37C HR:76(Monitored) RR:22 BP:147/89 SpO2:99% Oxygen Therapy:Room air HT:182.9cm WT:139.3kg WT:139.300kg(Dosing) BMI:41.64 General:Alert, no acute distress. Skin:Warm, dry. Head:Normocephalic, atraumatic. Neck:Trachea midline. Eye:Normal conjunctiva, Sclera: Clear. Cardiovascular:Regular rate, Normal peripheral perfusion. Respiratory: respirations are non-labored. Chest wall:No deformity. 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 Right lower extremity with approximately 2 to 3 inch area of black eschar overlying Achilles area. There is no overlying erythema fluctuance or purulence noted. 2+ PT and DP palpated bilaterally. Does not appear to penetrate deeply. Neurological:Normal speech observed, Level of consciousness: Appropriate for age. Psychiatric:Cooperative, appropriate affect. Medical Decision Making Patient is 67-year-old male withpast medical history significant for type 2 diabetescomplicatedby neuropathy,peripheral arterial disease who is presenting today due to concerns for ongoingright ankle wound. Certainly there is concern for underlying infection for which basic labs including CBC to assess for leukocytosis, ESR/CRP to assess forinflammatory elevations,and x- ray ordered. Differential considered includes but not limited to osteomyelitis,arterial insufficiency wound/chronic wound in the setting of diabetes and PAD,abscess/cellulitis, other. Patient is currently well- appearing and hemodynamically stableso I havelow suspicion for acuteinvasive bacterial infectionrequiringinpatient stabilization. Overall inflammatory markers not significantly elevated. CRP mildlyelevatedhowever nonspecific and without physical exam findings consistent withacute pathology less likely to attribute tosevere infectious process. X-ray with no evidence of osteomyelitis anddoes show someossification ofAchilles tendon likely in the setting ofsurgical procedure in the past. Unknown baseline creatininehowevercreatinine clearance appropriatedespitecreatinine of 1.45 and reported h/o abnormal kidney function in the recent past (no labs for comparison). Patient is overall well-appearing and I have lowsuspicion for acute pathology. Referrals have been placed for establishment with ourvascular surgical team as well as a wound carespecialist. We will discharge home. Assessment/Plan //Chronic right ankle wound Discharge Chronic wound Attestation This patient was seen and evaluated by me in conjunction with the resident MD and I agree with the assessment, physical exam findings, plan and disposition. I have personally seen and examined this patient. I have fully participated in the care of this patient. I have reviewed all pertinent clinical information including history, physical exam and plan. I evaluated the patient at the same time as the resident. Patient presents to our emergency department todaybecause he is displeased that hischronic wound is not healing. Unfortunately we have nospecific ointment or topical other topical agentthat will make it heal quicker. He and hisdaughter report thatthey were sentto our hospital by his primary care doctorto receive further care.I do not believe that any acute intervention is required at this time. Wound does not probe deeply. CRP is mildly elevated, ESR is within normal limits, and there is no signs of secondaryinfectionof the wound at this time. No evidence of osteomyelitison the x-ray. I do not be lieve that patient quires an MRI to investigate further for osteomyelitis at this time. He has nosystemic symptoms of illness. [facility] the daughter reports that the patient lives 3+ hours away, although they wouldbe interested to see if our teams have anythingelse to offer him that he is not already receiving. 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 The patient and her daughter also describehomenursing providing wound careseveral days a weekincluding dressing changesandthey report that she take serial pictures of the wound. Allergies No Known Medication Allergies Lab Results Chemistry LATEST RESULTS Na 07/07/23 13:01 139 mmol/L K 07/07/23 13:01 5.1 mmol/L Cl- 07/07/23 13:01 102 mmol/L HCO3 07/07/23 13:01 22 mmol/L Anion Gap 07/07/23 13:01 15 mmol/L High BUN 07/07/23 13:01 35 mg/dL High Cret 07/07/23 13:01 1.45 mg/dL High Estimated CrCl 07/07/23 13:58 70.55 eGFR CKD-EPI 07/07/23 13:01 52 mL/min/1.73 m2 Low Glu 07/07/23 13:01 91 mg/dL Ca 07/07/23 13:01 10.8 mg/dL High CBC LATEST RESULTS WBC 07/07/23 13:01 10.35 K/uL Hgb 07/07/23 13:01 12.9 g/dL Low Hct 07/07/23 13:01 40.4 % RBC 07/07/23 13:01 4.18 M/uL Low MCV 07/07/23 13:01 96.7 fL High MCHC 07/07/23 13:01 31.9 g/dL Low MCH 07/07/23 13:01 30.9 pg RDW 07/07/23 13:01 15.2 % High Plts 07/07/23 13:01 264 K/uL MPV 07/07/23 13:01 10.1 fL Type of Diff: 07/07/23 13:01 AUTO Immature Gran% 07/07/23 13:01 1.7 % Neut% 07/07/23 13:01 64.3 % Lymph% 07/07/23 13:01 21.9 % Sharp% 07/07/23 13:01 8.3 % Baso% 07/07/23 13:01 0.9 % Eos% 07/07/23 13:01 2.9 % Immat Gran, Abs 07/07/23 13:01 0.18 K/uL Neut, Abs 07/07/23 13:01 6.65 K/uL Lymph, Abs 07/07/23 13:01 2.27 K/uL Sharp, Abs 07/07/23 13:01 0.86 K/uL Baso, Abs 07/07/23 13:01 0.09 K/uL Eos, Abs 07/07/23 13:01 0.30 K/uL Liver/GI LATEST RESULTS ALT 07/07/23 13:01 26 unit/L T Bili 07/07/23 13:01 0.3 mg/dL Alk Phos 07/07/23 13:01 80 unit/L AST 07/07/23 13:01 30 unit/L Nutrition LATEST RESULTS Alb 07/07/23 13:01 4.6 g/dL Prot 07/07/23 13:01 8.0 g/dL Rheumatology LATEST RESULTS CReacProt 07/07/23 13:01 2.05 mg/dL High ESR 07/07/23 13:01 28 mm/hr Diagnostic Results (07/07/2023 13:01 EST XR Foot Complete 3+ Views Right) Posterior ankle superficial soft tissue defect with underlying Achilles tendon ossification. No radiographic evidence of osteomyelitis. [1] [1]XR Foot Complete 3+ Views Right; MD Mitchel, Tiff Welsh 07/07/2023 13:01 EST Electronic Signature on File Electronically Reviewed/Signed by: Quinten Tong MD Author Signature Dt/Tm:07/07/2023 05:01 PM Resident Department of Emergency Medicine Electronically Reviewed/Signed by: Evette Morales MD Cosigner Signature Dt/Tm: 07/09/2023 05:26 PM Department of Emergency Medicine AT * RICKEY Palmer Dhruv: PERFORM, SIGN DO Martinez Garrett: MODIFY, SIGN Juan, DO, David: SIGN, VERIFY Juan DO, David: VERIFY Event Display: ED Summary Authored Date: Patient: ISABELLA HUTCHINSON Age: 67 years Sex: Male : 1955 Associated Diagnoses: None Author: RICKEY Palmer Dhruv Care initiation note Limited HPI: Patient is a 67-year-old male presents to the emergency department with concerns of anopen wound on his right heel. Patient reports he suffered at 6 weeks. States he was previously antibiotics however does not improving. Patient reports he is a diabetic. Denies any fevers or chills. On limited exam: General: Alert. Noacute distress. Patient is fully dressed, sitting in a chair. Cardiovascular- Normal peripheral perfusion. Lungs- Nonlabored respirations. No evidence of increased work of breathing. Neuro- Alert and oriented without focal neurological deficit. Additional- Assessment/plan: Will order: Xr, labs Plan for further history, evaluation, treatment and placement in [place] This note was transcribed using voice recognition software. Because of this technology, there are often unintended grammatical, spelling, and other sleep technician errors. Please disregard these errors. Patient was seen and evaluated by the MANJINDER in the care initiation area. I was available for direct supervision if needed. Bambi Martinez DO Electronic Signature on File Electronically Reviewed/Signed by: RICKEY Mccarthy Author Signature Dt/Tm:07/07/2023 12:30 PM Department of Emergency Medicine Electronically Reviewed/Signed by: DO Cinthia Vaughan Signature Dt/Tm: 07/07/2023 01:26PM Department of Emergency Medicine DP Patient Care team information Care Team Personnel Name: MD Tong Aaron Position: Resident Member Role: Covering (3 days after created) Address: Address: [address] [place] [id number] [place] Name: ADEOLA Stark Rachel Position: RN Member Role: Direct Care Nurse Name: MD Morales Elizabeth B Position: Physician - Emerg Med SA Member Role: * Quality Review (1 day after created) Address: Address: [address] [place] [id number] [place]
--- NOTE | 2023-08-03 07:47 | Magnetic Resonance Report ---
MRI OF THE RIGHT ANKLE WITH AND WITHOUT CONTRAST CLINICAL HISTORY: Posterior right ankle wound. Previous Achilles surgery. Evaluate for osteomyelitis. COMPARISON STUDY: Right ankle radiographs August 02, 2023. TECHNIQUE: Utilizing a 1.5 Ashely magnet and dedicated coil, multiplanar, multi echo imaging of the [facility] ankle was performed pre and postcontrast administration. Intravenous injection of [address] was uneventful. FINDINGS: Note is made of a soft tissue defect of the posterior right ankle overlying the Achilles wh ich extends for approximately 4.9 cm in the craniocaudal dimension. The underlying Achilles extends t hrough the defect and is exposed. Adjacent soft tissue edema and enhancement is present. No rim enhan cing fluid collection is noted. Foci of susceptibility artifact within the Achilles are from prior re pair. There is no full-thickness Achilles tear. Achilles tendinopathy is noted with mild partial thic kness tear of the distal Achilles. Note is made of moderate fluid within the retrocalcaneal bursa. T1 and T2 hypointense foci reflect calcifications or soft tissue gas. Note is made of focal moderate ed teofilo and enhancement within the adjacent posterior superior calcaneus. T1 marrow signal is diminished. No additional sites of marrow edema are present. No acute fractures are present. There is plantar ca lcaneal spurring and mild thickening of the proximal plantar fascia. This is chronic. High-grade part ial-thickness tear of peroneus longus is incidentally noted. Tendinopathy with mild partial thickness tear of the distal posterior tibial tendon is present. The extensor and flexor tendons are intact. T here is no tibiotalar or subtalar joint effusion. IMPRESSION: 1. Soft tissue defect of the posterior right ankle consistent with wound. The Achilles tendon extends through the defect and is exposed. Adjacent edema and enhancement suggestive of cellulitis. No rim-e nhancing fluid collection to suggest abscess. 2. Fluid within the retrocalcaneal bursa with associated enhancement. Moderate edema and enhancement within the adjacent posterior superior aspect of the calcaneus with diminished T1 marrow signal. Alth ough this edema could be insertional/degenerative, acute osteomyelitis of the calcaneus is favored. T 1 and T2 hypointense foci within the bursa could reflect calcifications or soft tissue gas. 3. Previous Achilles repair. No full-thickness tear. Moderate Achilles tendinopathy with mild partial thickness tear of the Achilles. ACT 112: Negative or not required by law. Electronically signed by: Denilson Louis M.D. 08/03/2023 7:46 AM
[2023-08-03 08:11] LABS: Hematocrit (blood only) 33.6 % (42.0-52.0); Hemoglobin 11.4 g/dl (14.0-18.0); Mean Corpuscular Hemoglobin 31.2 pg (25.0-34.0); Mean Corpuscular Hgb Conc 33.9 g/dL (32.0-36.0); Mean Corpuscular Volume 92.1 fL (80.0-100.0); Mean Platelet Volume 9.7 fL (9.4-12.4); Platelet Count 272 K/uL (130-400); RDW Coefficient of Variation 14.5 % (11.5-14.5); RDW Standard Deviation 48.9 fL (36.4-46.3); Red Blood Count 3.65 M/uL (4.70-6.10); White Blood Count 8.07 K/ul (4.8-10.8)
[2023-08-03 08:40] LABS: INR 2.6 (0.9-1.1); Prothrombin Time 27.2 Seconds (9.0-12.0)
[2023-08-03 08:43] LABS: BUN Creatinine Ratio 27.1 (10-20); C Reactive Protein 11.49 mg/dl (0-0.5); Calcium 9.2 mg/dl (8.6-10.3); Creatinine Clr Calc Pharmacy 95.5 ml/min; Est GFR (African American) 82.2 ml/min; Magnesium 1.6 mg/dl (1.7-2.4); Potassium 4.1 mmol/L (3.5-5.1)
[2023-08-03] MEDS: CEROVITE ADV FORMULA TAB PO SCH (09:44)
[2023-08-03] MEDS: GABAPENTIN 300 MG CAP PO SCH ×3 (09:44→20:03)
[2023-08-03] MEDS: carvediloL 6.25 MG TAB PO SCH ×2 (09:45→20:03)
[2023-08-03] MEDS: PANTOprazole 40 MG TAB PO SCH (09:45)
[2023-08-03] MEDS: CITALOPRAM 20 MG TAB PO SCH (09:45)
--- NOTE | 2023-08-03 09:45 | Hospitalist Progress Note ---
Date of Service August 03, 2023 Assessment & Plan (1) Foot pain, right: (2) Open ankle wound: (3) Elevated troponin: (4) Hypomagnesemia: (5) Anemia: (6) HTN (hypertension): (7) Dyslipidemia: (8) DM type 2 (diabetes mellitus, type 2): (9) Atrial fibrillation: (10) Sleep apnea: (11) Congestive heart failure: (12) GERD (gastroesophageal reflux disease): (13) Depression: (14) Gout: (15) Insomnia: Plan 1) Foot pain, right -Symptoms concerning for RLE foot/ankle cellulitis w/ possible underlying osteomyelitis given this pt's considerable expanse of risk factors -Currently afebrile, hemodynamically stable, no leukocytosis- not meeting SIRS criteria on admission -XR of R ankle w/o obvious bony erosions/change concerning for osteomyelitis -Labs obtained: PCT, 0.14; ESR, 60; CRP, 11.5 --> consistent w/ inflammation and/or local infection, not necessarily highly suggestive of sepsis or osteomyelitis - MRI (r. ankle): "Moderate edema and enhancement within the adjacent posterior superior aspect of the calcaneus with diminished T1 marrow signal. Although this edema could be insertional/degenerative, acute osteomyelitis of the calcaneus is favored." -Continue Zosyn, daptomycin started in ER -Wound Cx pending (r. ankle, r. foot) -BCx pending -Podiatry consulted --> r. wound debridement and bone biopsy -Specimens: 1) Deep wound culture r. posterior ankle wound, 2) r. calcaneus bone biopsy pathology and microbiology --> Cx, Bx pending -Monitor CBC (2) Open ankle wound -Likely wound infection and management as above -Wound culture ordered -Wound care consult placed (3) Elevated troponin -Pt is free of ACS symptoms and EKG did not feature ST change concerning for ischemia -Troponin elevation likely type II NC/demand from acute illness + atrial fibril lation -Downtrending, 107->99, no further trending necessary -TTE deferred for now (4) Hypomagnesemia -Mg 1.3 on admission --> 1.6 AM labs, repeat 08/04/23 AM -Likely cause of pt's atrial fibrillation along with acute infection -Repleted in ER (5) Anemia -Hgb 11.9 on admission, appears close to baseline -Likely anemia of chronic disease -No bleeding concern at present -Monitor CBC (6) HTN (hypertension) -BP stable -Continue carvedilol, eplerenone (7) Dyslipidemia -Pt is surprisingly not on a statin despite his multiple comorbidities including DM2 w/ complication leading to PAD/PVD -Deferring statin initiation to PCP (8) DM type 2 (diabetes mellitus, type 2) -T2DM w/ complications of vascular disease and now with possible osteomyelitis -Hold home metformin, was previously on Trulicity per EMR -Lantus, SSI -Continue gabapentin and Celexa for neuropathy (9) Atrial fibrillation -Pt is currently in atrial fibrillation, likely precipitated by hypomagnesemia + acute infection -Currently rate-controlled -Normally anticoagulated with warfarin, INR 2.8 and therapeutic on admission (ask pt why warfarin) -Will hold warfarin for now since therapeutic and possibility of surgical intervention in near future pending clinical course -Continue carvedilol -Telemetry monitoring (10) Sleep apnea -CPAP at night (11) Congestive heart failure -Not in exacerbation presently -CXR does not demonstrate congestion, pt is also saturating well on RA w/ clear lung exam -Continue carvedilol, eplerenone -Pt was previously on Lasix but seemingly discontinued per EMR (12) GERD (gastroesophageal reflux disease) -Continue omeprazole (13) Depression -Continue Celexa (14) Gout -Continue febuxostat (15) Insomnia -Continue Seroquel KEVINI: DM2 Code status: Full DVT prophylaxis: Holding warfarin, therapeutic INR presently Isolation: None Unit: Medical/surgical with telemetry Disposition planning: Anticipate need for SNF Admission and Anticipated Discharge Date Admission Date: August 03, 2023 Supervising Physician Co-Signing Physician Notes chart reviewed, case d/w Dr Vyas and Juanita Merino MS2. pt physically seen extremely briefly but was talking w DM educator - given the importance of better sugar control, opted to let her conitnue discussions and i would revisit. Unfortunately later whenever I went to revisit he was at ultrasound, and about an hour after that whenever I went to revisit after ultrasound, he had been taken to the operating room. Case discussed with podiatry as well, input appreciated. Grossly. No distress, vitals noted. Breathing unlabored. Foot wound better depicted by descriptions from resident and student physician. Vascular insufficiency/diabetic foot wound with osteomyelitis and tenosynovi tiscontinue daptomycin and Zosyn for now. Almost certainly will need revascularization for any hope of salvage. Need to discuss with patientit appears that most of his vascular care has been at [facility], and will need to discuss with him if he intends to follow-up with them (which might necessitate transfer given the overall situation) versus if he would like our local vascular team to evaluate him. For OR for source control with the current infection. Subjective Thomas Weir is a 67 year old male with a past medical history of Hypertension, Hyperlipidemia, Type II diabetes with neuropathy, PAD/PVD, atrial fibrillation, obstructive sleep apnea, insomnia, depression, congestive heart failure, GERD, and gout who presented to the ED yesterday with foot pain and was admitted for possible wound infection. Patient reports continued Right foot and ankle pain for the past 5 months while the pain worsened about 1 month ago. He has an open wound of the posterior ankle. He did see his physician when the wound was about the size of a pencil tip and was seeing some white hard drainage and at the time was given antibiotics. He was also later referred to the wound clinic and orthopedics but no interventions were done at the time, his orthopedic visit was about a month and a half ago. Patient mentions that his pain has been acutely worsening for the past month and has been accompanied by some warmth and foot swelling, causing him significant pain with movement and ambulation. Additionally, his ankle wound has grown and become malodorous w/ purulent drainage. He has had fever/chills over the course of the last month and was started on doxycycline on 07/27. He was seen by vascular surgery recently for his scheduled bypass surgery that is in a week. He has not had any past infections in his foot/ankle or elsewhere. He has had gout in his past but it was limited to his big toes. He drinks beer socially, around once a week. He used to drink more frequently and at the time had more frequent gout attacks around 10-12 years ago. Patient arrived to ER hemodynamically stable. Initial evaluation significant for Hgb 11.9, INR 2.8, Mg 1.3, troponin 107 -> 99, negative UA, EKG demonstrating AF without significant ischemic change. R ankle xray does not have any obvious bony abnormalities. ER interventions include Mg 2g IV, Zosyn, daptomycin. Currently, patient reports that he has had some severe pain last night (06/06) but the medication helped. He can still feel some redness, pain, and malodor. Review of Systems Constitutional: + sweats and + body aches (baseline body aches); no fever and no chills Respiratory: no cough and no dyspnea Cardiovascular: no chest pain and no palpitations Gastrointestinal: no abdominal pain, no nausea, no vomiting, no constipation and no diarrhea/loose stools Genitourinary: no dysuria or no urinary frequency Integumentary: + non-healing lesions (deep lesion over posterior r. ankle, near Achilles tendon) and + erythema Physical Exam Physical Exam: General: Patient is a tired appearing male, awake, alert, and oriented, in no acute distress Eye: PERRL (pupils equal and responsive to light), EOMI (extraocular motions intact) HEENT: normocephalic, atraumatic, no lymphadenopathy, trachea midline, no JVD Respiratory: lungs CTA, BS equal, symmetrical expansion, no rales, rhonchi or wheezing CV: Irregularly irregular rhythm, no murmurs, rubs, or gallops, no edema, capillary refill < 2s GI: normal bowel sounds, abdomen soft, non-tender, non-distended, no organomegaly : no CVA tenderness MSK: Decrease sensation to touch in both lower extremities. Integumentary: Warmth, swelling, and erythema in right ankle and foot along with ulcerated wound in posterior ankle that is tender to palpation with purulent drainage. Neurologic: alert and oriented Psychiatric: calm and cooperative, appropriate mood and affect Constitutional: WD/WN, vitals as above Respiratory: normal respiratory effort, lungs clear to auscultation Cardiovascular: RRR, no murmur, no edema Gastrointestinal (Abdomen): normal bowel sounds, soft, nontender, no hepatosplenomegaly Psychiatric: Orientation: oriented x 3 Results & Data Results & Data Vital Signs (Past 12 Hours) Vital Signs Temp Pulse Pulse Resp BP BP BP 08/03/23 08:34 37.1 C 73 16 124/75 08/03/23 02:39 76 08/03/23 02:00 36.7 C 81 20 160/88 H 08/03/23 02:00 08/03/23 01:39 08/03/23 01:27 77 20 165/100 H 08/03/23 01:00 76 19 08/02/23 23:30 85 20 08/02/23 22:10 79 18 08/02/23 22:00 70 19 08/02/23 22:00 135/83 08/02/23 21:50 75 13 08/02/23 21:40 72 18 08/02/23 21:30 78 16 08/02/23 21:30 160/99 H 08/02/23 21:20 66 20 Pulse Ox O2 Del Method 08/03/23 08:34 96 Room Air 08/03/23 02:39 08/03/23 02:00 99 Room Air 08/03/23 02:00 Room Air 08/03/23 01:39 Room Air 08/03/23 01:27 97 Room Air 08/03/23 01:00 08/02/23 23:30 95 Room Air 08/02/23 22:10 08/02/23 22:00 08/02/23 22:00 08/02/23 21:50 08/02/23 21:40 08/02/23 21:30 08/02/23 21:30 08/02/23 21:20 Laboratory Results 08/03/23 08/02/23 08/02/23 07:29 23:15 22:12 WBC 8.07 RBC 3.65 L Hgb 11.4 L Hct 33.6 L MCV 92.1 MCH 31.2 MCHC 33.9 RDW Std Deviation 48.9 H RDW Coeff of Viola 14.5 Plt Count 272 MPV 9.7 Immature Gran % (Auto) Neut % (Auto) Lymph % (Auto) [place] % (Auto) Eos % (Auto) Baso % (Auto) Neut # (Auto) Lymph # (Auto) [place] # (Auto) Eos # (Auto) Baso # (Auto) Immature Gran # (Auto) ESR 60 H PT 27.2 H INR 2.6 H APTT PTT Ratio Sodium 138 Potassium 4.1 Chloride 106 Carbon Dioxide 23 Anion Gap 9 BUN 29 H Creatinine 1.07 Est Cr Clr Drug Dosing 95.5 Est GFR ( Amer) 82.2 Est GFR (Non-Af Amer) 71.0 BUN/Creatinine Ratio 27.1 H Glucose 110 H Lactate Calcium 9.2 Magnesium 1.6 L Total Bilirubin AST ALT Alkaline Phosphatase Troponin I High Sens 99.1 H* C-Reactive Protein 11.49 H Total Protein Albumin Globulin Albumin/Globulin Ratio Procalcitonin Urine Color Yellow Urine Appearance Clear Urine pH 5.0 Ur Specific [place] 1.020 Urine Protein Negative Urine Glucose (UA) Negative Urine Ketones Negative Urine Blood Negative Urine Nitrite Negative Urine Bilirubin Negative Urine Urobilinogen Negative Ur Leukocyte Esterase Negative SARS-CoV-2, RNA, NAAT NEGATIVE 08/02/23 19:55 WBC 9.55 RBC 3.77 L Hgb 11.9 L Hct 34.7 L MCV 92.0 MCH 31.6 MCHC 34.3 RDW Std Deviation 49.6 H RDW Coeff of Viola 14.6 H Plt Count 297 MPV 9.8 Immature Gran % (Auto) 0.7 Neut % (Auto) 67.6 Lymph % (Auto) 19.1 [place] % (Auto) 9.5 Eos % (Auto) 2.6 Baso % (Auto) 0.5 Neut # (Auto) 6.45 Lymph # (Auto) 1.82 [place] # (Auto) 0.91 H Eos # (Auto) 0.25 Baso # (Auto) 0.05 Immature Gran # (Auto) 0.07 ESR PT 28.7 H INR 2.8 H APTT 48 H PTT Ratio 1.7 Sodium 137 Potassium 4.3 Chloride 104 Carbon Dioxide 23 Anion Gap 10 BUN 34 H Creatinine 1.23 Est Cr Clr Drug Dosing Not Reportable Est GFR ( Amer) 69.5 Est GFR (Non-Af Amer) 59.9 BUN/Creatinine Ratio 27.6 H Glucose 119 H Lactate 1.6 Calcium 9.3 Magnesium 1.3 L Total Bilirubin 0.4 AST 23 ALT 18 Alkaline Phosphatase 63 Troponin I High Sens 107.1 H* C-Reactive Protein Total Protein 7.3 Albumin 4.0 Globulin 3.3 Albumin/Globulin Ratio 1.2 Procalcitonin 0.14 Urine Color Urine Appearance Urine pH Ur Specific [place] Urine Protein Urine Glucose (UA) Urine Ketones Urine Blood Urine Nitrite Urine Bilirubin Urine Urobilinogen Ur Leukocyte Esterase SARS-CoV-2, RNA, NAAT Diagnostic Findings Chest X-Ray 08/02/23 19:12 XR chest 1V not portable CLINICAL HISTORY: Sepsis. COMPARISON STUDY: Chest radiograph January 09, 2019. FINDINGS: Lung volumes are normal. Lungs are clear. There is no pneumothorax or pleural effusion. Cardiomegaly is unchanged. Mediastinal contours are normal. There is no evidence for pulmonary edema. IMPRESSION: No acute cardiopulmonary findings. No change in appearance of the chest. ACT 112: Negative or not required by law. Electronically signed by: Denilson Louis M.D. 08/03/2023 7:09 AM Ankle X-Ray 08/02/23 23:05 XR ankle RT min 3V routine CLINICAL HISTORY: Posterior ankle ulcer, evaluate for osseous involvement. COMPARISON: None FINDINGS: Extensive vascular calcification is incidentally noted. There is no acute fracture. Note is made of soft tissue defect of the posterior right ankle overlying the Achilles. This represents a wound. There are associated linear and dystrophic soft tissue calcifications. Mild osseous irregularity of the calcaneus at the Achilles insertion is noted. No additional bony erosions are i dentified. IMPRESSION: 1. No acute fractures within the right ankle. 2. Posterior right ankle wound involving the Achilles with associated linear and dystrophic soft tissue calcifications. Cortical irregularity and subtle lucency of the posterior superior calcaneus at the Achilles insertion. This is nonspecific however acute osteomyelitis cannot be excluded. ACT 112: Negative or not required by law. Electronically signed by: Denilson Louis M.D. 08/03/2023 6:36 AM Ankle MRI 08/03/23 00:53 MRI OF THE RIGHT ANKLE WITH AND WITHOUT CONTRAST CLINICAL HISTORY: Posterior right ankle wound. Previous Achilles surgery. Evaluate for osteomyelitis. COMPARISON STUDY: Right ankle radiographs August 02, 2023. TECHNIQUE: Utilizing a 1.5 [place] magnet and dedicated coil, multiplanar, multi echo imaging of the right ankle was performed pre and postcontrast administration. Intravenous injection of 13 cc of Gadavist was uneventful. FINDINGS: Note is made of a soft tissue defect of the posterior right ankle overlying the Achilles which extends for approximately 4.9 cm in the craniocaudal dimension. The underlying Achilles extends through the defect and is exposed. Adjacent soft tissue edema and enhancement is present. No rim enhancing fluid collection is noted. Foci of susceptibility artifact within the Achilles are from prior repair. There is no full-thickness Achilles tear. Achilles tendinopathy is noted with mild partial thickness tear of the distal Achilles. Note is made of moderate fluid within the retrocalcaneal bursa. T1 and T2 hypointense foci reflect calcifications or soft tissue gas. Note is made of focal moderate edema and enhancement within the adjacent posterior superior calcaneus. T1 marrow signal is diminished. No additional sites of marrow edema are present. No acute fractures are present. There is plantar calcaneal spurring and mild thickening of the proximal plantar fascia. This is chronic. High-grade partial-thickness tear of peroneus longus is incidentally noted. Tendinopathy with mild partial thickness tear of the distal posterior tibial tendon is present. The extensor and flexor tendons are intact. There is no tibiotalar or subtalar joint effusion. IMPRESSION: 1. Soft tissue defect of the posterior right ankle consistent with wound. The Achilles tendon extends through the defect and is exposed. Adjacent edema and enhancement suggestive of cellulitis. No rim-enhancing fluid collection to suggest abscess. 2. Fluid within the retrocalcaneal bursa with associated enhancement. Moderate edema and enhancement within the adjacent posterior superior aspect of the calcaneus with diminished T1 marrow signal. Although this edema could be insertional/degenerative, acute osteomyelitis of the calcaneus is favored. T1 and T2 hypointense foci within the bursa could reflect calcifications or soft tissue gas. 3. Previous Achilles repair. No full-thickness tear. Moderate Achilles tendinopathy with mild partial thickness tear of the Achilles. ACT 112: Negative or not required by law. Electronically signed by: Denilson Louis M.D. 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
[2023-08-03] MEDS: oxyCODONE HCL IR 5 MG TAB (IMMEDIATE RELEASE) PO PRN ×2 (13:00→20:06)
[2023-08-03 13:16] LABS: Estimated Average Glucose 131 mg/dl; Hemoglobin A1C 6.2 % (4.5-5.6)
--- NOTE | 2023-08-03 14:14 | Electrocardiogram Report ---
Test Reason : Blood Pressure : / mmHG Vent. Rate : 086 BPM Atrial Rate : 000 BPM P-R Int : 000 ms QRS Dur : 116 ms QT Int : 366 ms P-R-T Axes : 000 -02 160 degrees QTc Int : 437 ms Atrial fibrillation with premature ventricular or aberrantly conducted complexes Low voltage QRS Septal infarct , age undetermined Abnormal ECG When compared with ECG of 09-JAN-2019 09:41, Incomplete left bundle block is no longer Present Septal infarct is now Present Confirmed by Jerzy Ovalles ([id number]) on 08/03/2023 2:13:48 PM Referred By: REFERRED SELF Confirmed By:Jerzy Ovalles
--- NOTE | 2023-08-03 14:19 | Anesthesiology Consultation ---
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 Surgery Operation Date: 08/03/23 09:30 Proposed Procedures p Right Heel Wound Debridement, Bone Biopsy - Dean Rush DPM, MS Height/Weight Height: 6 ft Weight: 139 kg Allergies Allergy/AdvReac Type Severity Reaction Status Date / Time cephalexin AdvReac Severe unknown Verified 08/02/23 22:51 organ elevated enzymes Medications Home Medications Medication Instructions Recorded Confirmed Last Taken metformin 500 mg tablet 1,000 mg PO BID 01/10/19 08/02/23 Unknown carvedilol 12.5 mg tablet 6.25 mg PO BID 08/02/23 08/02/23 Unknown cholecalciferol (vitamin D3) 50 50 mcg PO DAILY 08/02/23 08/02/23 Unknown mcg (2,000 unit) tablet (Vitamin D3) citalopram 20 mg tablet 20 mg PO DAILY 08/02/23 08/02/23 Unknown doxycycline monohydrate 100 mg 100 mg PO DAILY 08/02/23 08/02/23 Unknown tablet eplerenone 25 mg tablet 25 mg PO DAILY 08/02/23 08/02/23 Unknown febuxostat 40 mg tablet 120 mg PO DAILY 08/02/23 08/02/23 Unknown gabapentin 300 mg capsule 300 mg PO TID 08/02/23 08/02/23 Unknown geriatric [id number] 1 tab PO DAILY 08/02/23 08/02/23 Unknown insulin glargine 100 unit/mL (3 30 unit subcut PM 08/02/23 08/02/23 Unknown mL) subcutaneous pen (Basaglar KwikPen U-100 Insulin) omeprazole 40 mg capsule,delayed 40 mg PO DAILY 08/02/23 08/02/23 Unknown release quetiapine 25 mg tablet 25 mg PO HS 08/02/23 08/02/23 Unknown tramadol 50 mg tablet 50 mg PO Q6 PRN Pain 08/02/23 08/02/23 Unknown warfarin 4 mg tablet (Pipetoven) 4 mg PO DAILY 08/02/23 08/02/23 Unknown Active Medications Generic Name Dose Route Start Last Admin Trade Name Freq PRN Reason Stop Dose Admin Acetaminophen 1,000 mg 08/03/23 06:00 08/03/23 13:00 Acetaminophen 500 Mg Tab PO 09/02/23 05:59 1,000 mg Q8 RADHA Administration Carvedilol 6.25 mg 08/03/23 09:00 08/03/23 09:45 Carvedilol 6.25 Mg Tab PO 09/02/23 08:59 6.25 mg BID RADHA Administration Citalopram Hydrobromide 20 mg 08/03/23 09:00 08/03/23 09:45 Citalopram 20 Mg Tab PO 09/02/23 08:59 20 mg DAILY RADHA Administration Gabapentin 300 mg 08/03/23 09:00 08/03/23 13:01 Gabapentin 300 Mg Cap PO 09/02/23 08:59 300 mg TID RADHA Administration Piperacillin Sod/Tazobactam 100 mls @ 25 mls/hr 08/03/23 04:00 08/03/23 12:58 Sod 4.5 gm/ Dextrose IV 08/10/23 03:59 25 mls/hr Q8H RADHA Administration Protocol Miscellaneous 1 each 08/03/23 08:00 08/03/23 07:29 Eplerenone 25 Mg - Order Awaiting Action N/A 09/02/23 07:59 Not Given QS RADHA Miscellaneous 1 each 08/03/23 08:00 08/03/23 07:29 Febuxostat 40 Mg Tablet - Order Awaiting Action N/A 09/02/23 07:59 Not Given QS RADHA Multivitamins/Minerals 1 tab 08/03/23 09:00 08/03/23 09:44 Cerovite Adv Formula Tab PO 09/02/23 08:59 1 tab DAILY RADHA Administration Oxycodone HCl 5 mg 08/03/23 02:05 08/03/23 13:00 Oxycodone Hcl Ir 5 Mg Tab (Immediate Release) PO 08/17/23 02:04 5 mg Q4H PRN Administration Pain Pantoprazole Sodium 40 mg 08/03/23 09:00 08/03/23 09:45 Pantoprazole 40 Mg Tab PO 09/02/23 08:59 40 mg DAILY RADHA Administration Past Medical History Medical History Diverticular disease Sleep apnea Hyperlipidemia Congestive heart failure Atrial fibrillation Bronchitis Past Family History Family History Other Congestive heart failure Past Surgical History Surgical History History of bowel resection Social History Smoking Status: Never smoker Do You Dip or Chew Tobacco: No Hx Alcohol Use: Yes Alcohol type: beer alcohol intake frequency: 0-2 drinks per day Hx Substance Use: No substance use type: does not use Physical Exam Vital Signs Last Vital Signs Temp 98.4 F 08/03/23 11:26 Pulse 70 08/03/23 11:26 Resp 16 08/03/23 11:26 BP 114/56 L 08/03/23 11:26 Pulse Ox 95 08/03/23 11:26 O2 Del Method Room Air 08/03/23 11:26 Testing Laboratory Results 08/03/23 07:29 08/03/23 07:29 PT 27.2 Seconds (9.0-12.0) H 08/03/23 07:29 INR 2.6 (0.9-1.1) H 08/03/23 07:29 APTT 48 Seconds (21-31) H 08/02/23 19:55 Hemoglobin A1c 6.2 % (4.5-5.6) H 08/03/23 07:29 Urine Color Yellow 08/02/23 23:15 Urine Appearance Clear (Clear) 08/02/23 23:15 Urine pH 5.0 (4.5-7.5) 08/02/23 23:15 Ur Specific [place] 1.020 (1.000-1.030) 08/02/23 23:15 Urine Protein Negative (Negative) 08/02/23 23:15 Urine Glucose (UA) Negative (Negative) 08/02/23 23:15 Urine Ketones Negative (Negative) 08/02/23 23:15 Urine Nitrite Negative (Negative) 08/02/23 23:15 Ur Leukocyte Esterase Negative (Negative) 08/02/23 23:15 08/02/23 23:15 Gram Stain - Final Ankle,Right Electrocardiogram Date: 08/02/23 Atrial fibrillation with premature ventricular or aberrantly conducted complexes Low voltage QRS Septal infarct , age undetermined Abnormal ECG When compared with ECG of 09-JAN-2019 09:41, Incomplete left bundle block is no longer Present Septal infarct is now Present Confirmed by Jerzy Ovalles ([id number]) on 08/03/2023 2:13:48 PM Chest X-Ray Date: 08/02/23 FINDINGS: Lung volumes are normal. Lungs are clear. There is no pneumothorax or pleural effusion. Cardiomegaly is unchanged. Mediastinal contours are normal. There is no evidence for pulmonary edema. IMPRESSION: No acute cardiopulmonary findings. No change in appearance of the chest.
[2023-08-03] MEDS ORDERED: BUPIVACAINE 0.5 % 5 MG/1 ML MPF 30ML VIAL ONE (15:26)
--- NOTE | 2023-08-03 16:04 | Magnetic Resonance Report ---
MRI OF THE RIGHT FOREFOOT COMBO CLINICAL HISTORY: Infection. Osteomyelitis. COMPARISON STUDY: Radiographs of the right ankle dated 08/02/2023. TECHNIQUE: MRI of the right forefoot is performed utilizing various T1 and T2-weighted sequences in t he axial, sagittal, and coronal planes. Contrast-enhanced sequences were acquired following the IV ad ministration of 13 mL of Gadavist. Note that interpretation is suboptimal without radiographic correl ate of the foot. The examination is modestly degraded by motion artifact. FINDINGS: There is no marrow signal abnormality seen throughout the forefoot, typical for osteomyelit is. There is moderate osteoarthritic change at the first metatarsophalangeal joint with associated ma rrow edema. Milder osteoarthritic change is seen throughout the forefoot and midfoot. The Lisfranc li gament is maintained. Soft tissue edema is noted in the midfoot. There is evidence of a nonspecific m yositis in the flexor musculature. Imaged portions of the plantar fascia appear intact. No enhancing lesion is identified on the postcontrast images. Imaged portions of the flexor and extensor tendons a ppear intact. IMPRESSION: 1. There is no marrow abnormality identified in the right forefoot typical for osteomyelitis. 2. Arthritic change as above, greatest at the first metatarsophalangeal joint. 3. Soft tissue edema is nonspecific. Correlate for evidence of cellulitis. 4. No enhancing soft tissue lesion is identified. Dictated: 08/03/2023 9:24 AM Transcribed: 08/03/2023 9:34 AM Hussein [id number] [email or web address] Electronically signed by: Huan Murcia M.D. 08/03/2023 4:02 PM
[2023-08-03] MEDS ORDERED: MIDAZOLAM HCL 1 MG/ML 2ML VIAL ONE (16:24)
[2023-08-03] MEDS ORDERED: LIDOCAINE 2% 2 ML VIAL/AMP(20MG/ML) INFIL ONE (16:24)
[2023-08-03] MEDS ORDERED: PROPOFOL IV EMULSION 10 MG/ML 20 ML VIAL IV ONE ×2 (16:24→17:10)
[2023-08-03] MEDS ORDERED: fentaNYL citrate PF 100 MCG/2 ML VIAL ONE (16:24)
--- NOTE | 2023-08-03 16:27 | Orthopedic Consultation ---
Date of Consultation August 03, 2023 Assessment & Plan (1) Open ankle wound: Patient seen, evaluated, and treated. Reviewed MRI (+) OM calcaneus. Discussed malodorous posterior ankle wound with abundant necrotic tissue. Patient scheduled for wound debridement with bone biopsy of calc. Thank you for allowing me to participate in the care of this Patient. (2) DM type 2 (diabetes mellitus, type 2): History of Present Illness Attending Physician: Buddy Avina DO History of Present Illness Patient is 67 year old vasculopath seen at bedside in room 281-1 for right ankle wound. Patient has a past medical history significant for HTN, HLD, DM2 w/ neuropathy, PAD/PVD, pAF, TOSIN, insomnia, depression, CHF, GERD, gout. Patient notes over the past month his pain has acutely worsened and associated with some warmth and swelling of the foot which has caused significant pain with ambulation. Notes his ankle wound has grown and become malodorous w/ purulent drainage. Also reports subjective fever/chills over past month. He was started on doxycycline recently on 07/27. Due to increasing symptoms he presented to [facility] ED on 08/02/23 for evaluation. MRI taken of right foot and ankle showed (+) OM of posterior calcaneus adjacent to wound. Patient has prior history of right foot/ankle wound and is currently being treated at [facility] wound care facility in [place]. He is a known vasculopath and recently underwent an angiogram with intended angioplasty that was unsuccessful on 06/19. Patient is currently scheduled for open vascular procedure fem-pop bypass Monday08/07/[address] [place] [address] Sean Ludwig. Allergies Allergy/AdvReac Type Severity Reaction Status Date / Time cephalexin AdvReac Severe unknown Verified 08/02/23 22:51 organ elevated enzymes Home Medications Medication Instructions Recorded Confirmed Type metformin 500 mg tablet 1,000 mg PO BID 01/10/19 08/02/23 History carvedilol 12.5 mg tablet 6.25 mg PO BID 08/02/23 08/02/23 History cholecalciferol (vitamin D3) 50 50 mcg PO DAILY 08/02/23 08/02/23 History mcg (2,000 unit) tablet (Vitamin D3) citalopram 20 mg tablet 20 mg PO DAILY 08/02/23 08/02/23 History doxycycline monohydrate 100 mg 100 mg PO DAILY 08/02/23 08/02/23 History tablet eplerenone 25 mg tablet 25 mg PO DAILY 08/02/23 08/02/23 History febuxostat 40 mg tablet 120 mg PO DAILY 08/02/23 08/02/23 History gabapentin 300 mg capsule 300 mg PO TID 08/02/23 08/02/23 History geriatric junqqjyr-jsym-jykn 1 tab PO DAILY 08/02/23 08/02/23 History insulin glargine 100 unit/mL (3 30 unit subcut PM 08/02/23 08/02/23 History mL) subcutaneous pen (Basaglar KwikPen U-100 Insulin) omeprazole 40 mg capsule,delayed 40 mg PO DAILY 08/02/23 08/02/23 History release quetiapine 25 mg tablet 25 mg PO HS 08/02/23 08/02/23 History tramadol 50 mg tablet 50 mg PO Q6 PRN Pain 08/02/23 08/02/23 History warfarin 4 mg tablet (Jantoven) 4 mg PO DAILY 08/02/23 08/02/23 History Patient History Medical History Diverticular disease Sleep apnea Hyperlipidemia Congestive heart failure Atrial fibrillation Bronchitis Surgical History History of bowel resection Family History Other Congestive heart failure Social History Smoking Status: Never smoker Do You Dip or Chew Tobacco: No; Hx Alcohol Use: Yes Alcohol type: beer Hx Substance Use: No Preferred Language: Upper Sorbian Communication Ability: Effective Lead Sharepoint Developer Required: No Beliefs That Will Affect Care: None Current Living Situation: Spouse Other Information That Helps Us Care for You: No Feels Safe at Home: Yes Safety Concerns: Feels Safe At This Time Assistive Devices: None Review of Systems Review of Systems: All systems reviewed & are unremarkable except as noted in HPI & below Physical Exam Constitutional: + obese, cooperative and comfortable Eyes: normal visual lee by confrontation Respiratory: normal respiratory effort Cardiovascular: Rate/Rhythm: + irregularly irregular Non palpable pedal pulses, SAP DEVELOPER delayed Musculoskeletal: Extremities: extremities normal to inspection Skin: + ulcer (Right posterior ankle over Achi lles tendon, malodorous, Eschar present), + skin atrophy and + erythema (RLE) Neurologic: moves all extremities (Decreased epicritic sensation bilateral) Psychiatric: Orientation: alert and oriented x 3 Results & Data Vital Signs (Past 12 Hours) Vital Signs Temp Pulse Pulse Resp BP Pulse Ox O2 Del Method 08/03/23 14:15 79 08/03/23 11:26 36.9 C 70 16 114/56 L 95 Room Air 08/03/23 08:34 37.1 C 73 16 124/75 96 Room Air Diagnostic Findings [place], [place] [phone] Magnetic Resonance Report Patient: ISABELLA HUTCHINSON Admit Date: 08/03/23 MR#: [id number] Address1: [address] [place] [address] Acct ID:[id number] Address2: Date: 1955 [facility] [address] Age: 67 Location: Sex: M Room/Bed: [facility] Att Phy: Buddy Avina D.O. Diagnosis: POSSIBLE OSTEOMYELITIS Isabel Phy: Dean Salas PA-C Service Date: 08/03/23 Fam Phy: Interpreting Phy: Denilson Louis MDAdmit Phy: Pina Cho MD Ordering Phy: Pina Cho MD cc: ~ MRI OF THE RIGHT ANKLE WITH AND WITHOUT CONTRAST CLINICAL HISTORY: Posterior right ankle wound. Previous Achilles surgery. Evaluate for osteomyelitis. COMPARISON STUDY: Right ankle radiographs August 02, 2023. TECHNIQUE: Utilizing a 1.5 Ashely magnet and dedicated coil, multiplanar, multi echo imaging of the right ankle was performed pre and postcontrast administration. Intravenous injection of 13 cc of Gadavist was uneventful. FINDINGS: Note is made of a soft tissue defect of the posterior right ankle overlying the Achilles which extends for approximately 4.9 cm in the craniocaudal dimension. The underlying Achilles extends through the defect and is exposed. Adjacent soft tissue edema and enhancement is present. No rim enhancing fluid collection is noted. Foci of susceptibility artifact within the Achilles are from prior repair. There is no full-thickness Achilles tear. Achilles tendinopathy is noted with mild partial thickness tear of the distal Achilles. Note is made of moderate fluid within the retrocalcaneal bursa. T1 and T2 hypointense foci reflect calcifications or soft tissue gas. Note is made of focal moderate edema and enhancement within the adjacent posterior superior calcaneus. T1 marrow signal is diminished. No additional sites of marrow edema are present. No acute fractures are present. There is plantar calcaneal spurring and mild thickening of the proximal plantar fascia. This is chronic. High-grade partial-thickness tear of peroneus longus is incidentally noted. Tendinopathy with mild partial thickness tear of the distal posterior tibial tendon is present. The extensor and flexor tendons are intact. There is no tibiotalar or subtalar joint effusion. IMPRESSION: 1. Soft tissue defect of the posterior right ankle consistent with wound. The Achilles tendon extends through the defect and is exposed. Adjacent edema and enhancement suggestive of cellulitis. No rim-enhancing fluid collection to suggest abscess. 2. Fluid within the retrocalcaneal bursa with associated enhancement. Moderate edema and enhancement within the adjacent posterior superior aspect of the calcaneus with diminished T1 marrow signal. Although this edema could be insertional/degenerative, acute osteomyelitis of the calcaneus is favored. T1 and T2 hypointense foci within the bursa could reflect calcifications or soft tissue gas. 3. Previous Achilles repair. No full-thickness tear. Moderate Achilles tendinopathy with mild partial thickness tear of the Achilles. ACT 112: Negative or not required by law. Electronically signed by: Denilson Louis M.D. 08/03/2023 7:46 AM Dictated: 08/03/23 0723 Transcribed: 08/03/23 0735 (2) DM type 2 (diabetes mellitus, type 2) Diabetes mellitus complication status: with skin complications Diabetes mellitus termite helper insulin use: unspecified assisted insulin use status
[2023-08-03] MEDS ORDERED: ePHEDrine sulfate 50 MG/ML AMP IV PRN (16:28)
[2023-08-03] MEDS ORDERED: ATROPINE SULFATE 0.1 MG/ML 10ML SYR IV PRN (16:28)
[2023-08-03] MEDS ORDERED: ONDANSETRON INJ 2 MG/ML 2 ML VIAL IV PRN (16:28)
[2023-08-03] MEDS ORDERED: KETAMINE HCL 10MG/ML SYR ONE (16:34)
--- NOTE | 2023-08-03 16:47 | History & Physical Bridge Note ---
Date of Service August 03, 2023 History & Physical Bridge Note I have examined the patient, reviewed the History & Physical and in the interval since the performance of the History & Physical I have noted the following changes of clinical significance: no changes noted
[2023-08-03] MEDS ORDERED: PHENYLEPHRINE 100MCG/ML 10ML SYR IV ONE (17:22)
--- NOTE | 2023-08-03 17:43 | Billing Data ---
Date of Service August 03, 2023 Coding Level of Care Code 81861 SUB INP/OBS CARE
--- NOTE | 2023-08-03 17:57 | Post Operative Brief Note ---
Immediate Post Op Note v1 Date of Surgery August 03, 2023 Pre & Post Diagnosis Operation Date: 08/03/23 09:30 Pre-Op Diagnosis: Open ankle wound Post-Op Diagnosis: Open ankle wound I identified the patient and participated in the time-out.: Yes Procedure Operation Date: 08/03/23 09:30 Actual Procedures p Right Heel Wound Debridement, Bone Biopsy(Right) - Dean Rush DPM, MS Surgeon Dean Rush DPM, MS Cone Tender none Estimated Blood Loss 5 Findings Consistent with Post-Op Diagnosis consistent with preoperative findings. Specimens Bone calcaneus right - pathology, microbiology Deep wound culture Right ankle
[2023-08-03] MEDS: fentaNYL citrate PF 100 MCG/2 ML VIAL IV PRN ×2 (18:05→18:15)
--- NOTE | 2023-08-03 18:26 | Anesthesiology Progress Note ---
Date of Service August 03, 2023 Anesthesia Post Procedure Vital Signs Vital Signs: Temp Pulse Pulse Pulse Resp BP BP 08/03/23 17:59 36 C L 85 20 123/82 08/03/23 16:27 36.6 C 63 20 167/85 H 08/03/23 14:15 79 08/03/23 11:26 36.9 C 70 16 114/56 L 08/03/23 08:34 37.1 C 73 16 124/75 08/03/23 02:39 76 08/03/23 02:00 36.7 C 81 20 160/88 H 08/03/23 02:00 08/03/23 01:39 08/03/23 01:27 77 20 08/03/23 01:00 76 19 08/02/23 23:30 85 20 08/02/23 22:10 79 18 08/02/23 22:00 70 19 08/02/23 22:00 135/83 08/02/23 21:50 75 13 08/02/23 21:40 72 18 08/02/23 21:30 78 16 08/02/23 21:30 160/99 H 08/02/23 21:20 66 20 08/02/23 21:16 171/89 H 08/02/23 21:16 86 17 08/02/23 21:15 82 12 08/02/23 21:15 85 08/02/23 20:52 85 14 08/02/23 19:53 84 18 08/02/23 19:52 08/02/23 19:08 36.7 C 75 16 151/83 H BP Pulse Ox O2 Del Method 08/03/23 17:59 96 Room Air 08/03/23 16:27 96 Room Air 08/03/23 14:15 08/03/23 11:26 95 Room Air 08/03/23 08:34 96 Room Air 08/03/23 02:39 08/03/23 02:00 99 Room Air 08/03/23 02:00 Room Air 08/03/23 01:39 Room Air 08/03/23 01:27 165/100 H 97 Room Air 08/03/23 01:00 08/02/23 23:30 95 Room Air 08/02/23 22:10 08/02/23 22:00 08/02/23 22:00 08/02/23 21:50 08/02/23 21:40 08/02/23 21:30 08/02/23 21:30 08/02/23 21:20 08/02/23 21:16 08/02/23 21:16 08/02/23 21:15 08/02/23 21:15 08/02/23 20:52 141/83 H 98 Room Air 08/02/23 19:53 154/115 H 98 Room Air 08/02/23 19:52 Room Air 08/02/23 19:08 98 Room Air Pain Intensity Right Leg: Pain Intensity: 7 Right Foot: Pain Intensity: 10 Transfer of Care Handoff Completed per policy Notes Mental Status: alert / awake / arousable Patient Amnestic to Procedure: Yes Nausea / Vomiting: adequately controlled Pain: adequately controlled Airway Patency, RR, SpO2: stable & adequate BP & HR: stable & adequate Hydration State: stable & adequate Anesthetic Complications: no major complications apparent and Pt Satisfied with anesthetic care
[2023-08-03] MEDS: QUEtiapine FUMARATE 25 MG TABLET PO SCH (20:02)
--- NOTE | 2023-08-03 20:31 | Ultrasound Report ---
US arterial duplex LE RT CLINICAL HISTORY: vascular insufficiency ulcer TECHNIQUE: Real-time grayscale and color and spectral Doppler ultrasound imaging of the right lower e xtremity arteries was performed. Measurements based on NASCET criteria. COMPARISON: None available at the time of this dictation. FINDINGS: Triphasic waveforms with normal velocities are seen in the common femoral, deep femoral, superficial femoral, and popliteal arteries. Anterior tibial artery: Monophasic waveforms. PSV 70 cm/s. Posterior tibial artery: Monophasic waveforms. PSV 60 cm/s. Peroneal artery: Monophasic waveforms. PSV 137 cm/s. Dorsalis pedis: Monophasic waveforms. PSV 69 cm/s. ANKLE/BRACHIAL INDEX (CHLEY): Brachial: Right: 142 mmHg. Left: 164 mmHg. Ankle (dorsalis pedis): Right: >255 mmHg. Ankle (posterior tibial): Right: >255 mmHg. Ankle/brachial index: Right: not calculated, Reference ranges: Normal Ankle/Brachial Index (CHELY) 1.0-1.4; 0.91-0.99 borderline; < or = 0.9 abnormal (0.7-0.89 mild, 0.51-0.69 moderate, < or = 0.5 severe peripheral arterial disease). Normal Toe/Brachial Index (TBI) > or = 0.6; < 0.6 abnormal (0.34-0.59 mild, 0.12-0.34 moderate, < or = 0.11 severe peripheral arterial disease). IMPRESSION: 1. Hemodynamically significant stenosis with monophasic waveforms in the calf vessels. Elevated velo cities are in the mid right peroneal artery. 2. Right ankle-brachial indices are not elevated. ACT 112: Negative or not required by law. Electronically signed by: Angel Witt M.D. 08/03/2023 8:28 PM
--- NOTE | 2023-08-03 20:48 | Operative Report ---
Post Operative Report Pre & Post Diagnosis Operation Date: 08/03/23 09:30 Pre-Op Diagnosis: Open ankle wound Post-Op Diagnosis: Open ankle wound I identified the patient and participated in the time-out.: Yes Procedure Operation Date: 08/03/23 09:30 Actual Procedures p Right Heel Wound Debridement, Bone Biopsy(Right) - Dean Rush DPM, MS Surgeon Dean Rush DPM, MS Director Of Neurology none Estimated Blood Loss 5 Findings Consistent with Post-Op Diagnosis consistent with preoperative diagnosis Specimens Deep wound culture right posterior ankle wound Right calcaneus bone biopsy pathology and microbiology Description of Procedure History of present illness: Patient is a 67-year-old male with right diabetic posterior ankle ulcer and MRI positive for calcaneus osteomyelitis. Patient seen today for wound debridement, and right calcaneus bone biopsy. Procedure in detail was discussed as well as postoperative care. All questions were answered. All potential risks, benefits, complications, alternatives, rehab, potential for incomplete relief of symptoms, need for further surgery, DVT, PE, , persistent pain, swelling, scarring, weakness, neurovascular, wound complications and potential for amputations were discussed with patient. Unwanted outcomes such as, but not limited to were reviewed including under correction, overcorrection, return of deformity, infection. All questions were answered. Patient has decided to proceed with procedure as indicated. Preoperative diagnosis: 1.) Right posterior ankle diabetic wound necrotic soft tissue involving tendon 2.) Right calcaneus osteomyelitis Postoperative diagnosis: Same Procedure in detail: 1.) Excision of necrotic soft tissue and Achilles tendon right foot 2.) Bone biopsy Right calcaneus Surgeon: Dr. Rush Director Of Neurology: none Anesthesia: Local monitored anesthesia care Hemostasis: none Estimated blood loss: 5ml Specimens: None Procedure in detail: Under mild sedation the patient was brought in the operating room and placed on the operating table in supine position. Following sedation the foot and ankle were prepped scrubbed and draped in the usual aseptic manner. Attention was then directed to right posterior ankle non healing wound with exposed necrotic achilles tendon. The wound measures roughly 6 cm x 5 cm x 3 cm. Utilizing a sharp, sterile, #15 blade of extensive debridement of necrotic devitalized soft tissue was achieved. Greater than 50% of the tendon was found to be necrotic and excised. The remaining portion seemed compromised and unstable. The wound bed was voided of non-viable tissue. All bleeders were ligated and cauterized as necessary. The wound was found to be stable with no trafficking and only mild tunneling at 11 and 12 oclock. A deep culture of the wound was taken. Lactate ringer was utilized to flush the wound. At this time attention was directed to the posterior aspect of the calcaneus. Utilizing a jamshidi needle a bone biopsy from right calcaneus is harvested and placed on the back table and labeled. A portion was sent to pathology and a portion sent to microbiology for cultures and sensitivities. Copious amounts of normal saline were utilized to flush the wound. The wound was covered with sterile adaptic. The wound was covered with sterile 4x4 gauze, kerlix, Garret.The Patient tolerated procedure and anesthesia well. He was transferred to the recovery room with vital signs stable and vascular status intact. Following a period of postoperative monitoring the patient will be readmitted back to the floor resuming all preoperative orders. Keep dressing clean dry and intact, avoid ambulation. Dr. Rush for all postoperative care if any problems arise I attest to the content of the Intraoperative Record and any orders documented therein. Any exceptions are noted below.
[2023-08-04] MEDS: DAPTOmycin 400 MG in SYRINGE 0 ML IV SCH (02:15)
[2023-08-04] MEDS: oxyCODONE HCL IR 5 MG TAB (IMMEDIATE RELEASE) PO PRN ×4 (02:19→21:13)
[2023-08-04] MEDS: PIPERACILLIN/TAZOBACTAM 4.5 GM in DEXTROSE 5% MINI-B 100 ML IV SCH ×3 (03:27→21:08)
[2023-08-04] MEDS: ACETAMINOPHEN 500 MG TAB PO SCH ×3 (05:45→21:15)
--- NOTE | 2023-08-04 05:47 | Billing Data ---
Date of Service August 04, 2023 Coding Level of Care Code 27002 INT INP/OBS CARE
[2023-08-04 07:29] LABS: Basophils # (auto) 0.05 K/uL (0.00-0.20); Basophils % (auto) 0.7 %; Eosinophils # (auto) 0.34 K/uL (0.00-0.50); Eosinophils % (auto) 4.8 %; Hematocrit (blood only) 33.7 % (42.0-52.0); Hemoglobin 10.7 g/dl (14.0-18.0); Immature Granulocytes # (auto) 0.04 K/uL (0.01-0.20); Immature Granulocytes % (auto) 0.6 %; Lymphocytes # (auto) 1.34 K/uL (1.20-3.40); Lymphocytes % (auto) 18.8 %; Mean Corpuscular Hemoglobin 30.3 pg (25.0-34.0); Mean Corpuscular Hgb Conc 31.8 g/dL (32.0-36.0); Mean Corpuscular Volume 95.5 fL (80.0-100.0); Mean Platelet Volume 9.7 fL (9.4-12.4); Monocytes # (auto) 0.78 K/uL (0.11-0.59); Monocytes % (auto) 10.9 %; Neutrophils # (auto) 4.59 K/uL (1.40-6.50); Neutrophils % (auto) 64.2 %; Platelet Count 249 K/uL (130-400); RDW Coefficient of Variation 14.6 % (11.5-14.5); RDW Standard Deviation 50.8 fL (36.4-46.3); Red Blood Count 3.53 M/uL (4.70-6.10); White Blood Count 7.14 K/ul (4.8-10.8)
[2023-08-04 07:50] LABS: INR 2.8 (0.9-1.1); Prothrombin Time 28.3 Seconds (9.0-12.0)
[2023-08-04 08:08] LABS: BUN Creatinine Ratio 20.7 (10-20); Calcium 9.2 mg/dl (8.6-10.3); Creatinine Clr Calc Pharmacy 110.5 ml/min; Est GFR (African American) 98.7 ml/min; Est GFR (Non-African American) 85.2 ml/min; Magnesium 1.6 mg/dl (1.7-2.4); Potassium 4.3 mmol/L (3.5-5.1)
[2023-08-04] MEDS: GABAPENTIN 300 MG CAP PO SCH ×3 (09:22→21:14)
[2023-08-04] MEDS: CEROVITE ADV FORMULA TAB PO SCH (09:23)
[2023-08-04] MEDS: CITALOPRAM 20 MG TAB PO SCH (09:23)
[2023-08-04] MEDS: carvediloL 6.25 MG TAB PO SCH ×2 (09:23→21:14)
[2023-08-04] MEDS: PANTOprazole 40 MG TAB PO SCH (09:24)
--- NOTE | 2023-08-04 09:48 | Hospitalist Progress Note ---
Date of Service August 04, 2023 Assessment & Plan (1) Foot pain, right: (2) Open ankle wound: (3) Elevated troponin: (4) Hypomagnesemia: (5) Anemia: (6) HTN (hypertension): (7) Dyslipidemia: (8) DM type 2 (diabetes mellitus, type 2): (9) Atrial fibrillation: (10) Sleep apnea: (11) Congestive heart failure: (12) GERD (gastroesophageal reflux disease): (13) Depression: (14) Gout: (15) Insomnia: Plan 1) Foot pain, right -Symptoms concerning for RLE foot/ankle cellulitis w/ possible underlying osteomyelitis given this pt's considerable expanse of risk factors -Currently afebrile, hemodynamically stable, no leukocytosis- not meeting SIRS criteria on admission -XR of R ankle w/o obvious bony erosions/change concerning for osteomyelitis -Labs obtained: PCT, 0.14; ESR, 60; CRP, 11.5 --> consistent w/ inflammation and/or local infection, not necessarily highly suggestive of sepsis or osteomyelitis - MRI (r. ankle): "Moderate edema and enhancement within the adjacent posterior superior aspect of the calcaneus with diminished T1 marrow signal. Although this edema could be insertional/degenerative, acute osteomyelitis of the calcaneus is favored." -Continue Zosyn, daptomycin started in ER -Wound Cx pending (r. ankle, r. foot) -BCx pending -Podiatry consulted --> r. wound debridement and bone biopsy -Specimens: 1) Deep wound culture r. posterior ankle wound, 2) r. calcaneus bone biopsy pathology and microbiology --> Cx, Bx pending -Monitor CBC (2) Open ankle wound -Likely wound infection and management as above -Wound culture ordered -Wound care consult placed (3) Elevated troponin -Pt is free of ACS symptoms and EKG did not feature ST change concerning for ischemia -Troponin elevation likely type II NJ/demand from acute illness + atrial fibril lation -Downtrending, 107->99, no further trending necessary -TTE deferred for now (4) Hypomagnesemia -Mg 1.3 on admission --> 1.6 AM labs, repeat 08/04/23 AM -Likely cause of pt's atrial fibrillation along with acute infection -Repleted in ER (5) Anemia -Hgb 11.9 on admission, appears close to baseline -Likely anemia of chronic disease -No bleeding concern at present -Monitor CBC (6) HTN (hypertension) -BP stable -Continue carvedilol, eplerenone (7) Dyslipidemia -Pt is surprisingly not on a statin despite his multiple comorbidities including DM2 w/ complication leading to PAD/PVD -Deferring statin initiation to PCP (8) DM type 2 (diabetes mellitus, type 2) -T2DM w/ complications of vascular disease and now with possible osteomyelitis -Hold home metformin, was previously on Trulicity per EMR -Lantus, SSI -Continue gabapentin and Celexa for neuropathy (9) Atrial fibrillation -Pt is currently in atrial fibrillation, likely precipitated by hypomagnesemia + acute infection -Currently rate-controlled -Normally anticoagulated with warfarin, INR 2.8 and therapeutic on admission (ask pt why warfarin) -Will hold warfarin for now since therapeutic and possibility of surgical intervention in near future pending clinical course -Continue carvedilol -Telemetry monitoring (10) Sleep apnea -CPAP at night (11) Congestive heart failure -Not in exacerbation presently -CXR does not demonstrate congestion, pt is also saturating well on RA w/ clear lung exam -Continue carvedilol, eplerenone -Pt was previously on Lasix but seemingly discontinued per EMR (12) GERD (gastroesophageal reflux disease) -Continue omeprazole (13) Depression -Continue Celexa (14) Gout -Continue febuxostat (15) Insomnia -Continue Seroquel KEVINI: DM2 Code status: Full DVT prophylaxis: Holding warfarin, therapeutic INR presently Isolation: None Unit: Medical/surgical with telemetry Disposition planning: Anticipate need for SNF Admission and Anticipated Discharge Date Admission Date: August 03, 2023 Subjective Thomas Weir is a 67 year old male with a past medical history of Hypertension, Hyperlipidemia, Type II diabetes with neuropathy, PAD/PVD, atrial fibrillation, obstructive sleep apnea, insomnia, depression, congestive heart failure, GERD, and gout who presented to the ED yesterday with foot pain and was admitted for possible wound infection. Patient reports continued Right foot and ankle pain for the past 5 months while the pain worsened about 1 month ago. He has an open wound of the posterior ankle. He did see his physician when the wound was about the size of a pencil tip and was seeing some white hard drainage and at the time was given antibiotics. He was also later referred to the wound clinic and orthopedics but no interventions were done at the time, his orthopedic visit was about a month and a half ago. Patient mentions that his pain has been acutely worsening for the past month and has been accompanied by some warmth and foot swelling, cau sing him significant pain with movement and ambulation. Additionally, his ankle wound has grown and become malodorous w/ purulent drainage. He has had fever/chills over the course of the last month and was started on doxycycline on 07/27. He was seen by vascular surgery recently for his scheduled bypass surgery that is in a week. He has not had any past infections in his foot/ankle or elsewhere. He has had gout in his past but it was limited to his big toes. He drinks beer socially, around once a week. He used to drink more frequently and at the time had more frequent gout attacks around 10-12 years ago. Patient arrived to ER hemodynamically stable. Initial evaluation significant for Hgb 11.9, INR 2.8, Mg 1.3, troponin 107 -> 99, negative UA, EKG demonstrating AF without significant ischemic change. R ankle xray does not have any obvious bony abnormalities. ER interventions include Mg 2g IV, Zosyn, daptomycin. Currently, patient reports that he has had some severe pain last night (06/06) but the medication helped. He can still feel some redness, pain, and malodor. Review of Systems Review of Systems: Per HPI/Subjective Constitutional: + sweats and + body aches (baseline body aches); no fever and no chills Respiratory: no cough and no dyspnea Cardiovascular: no chest pain and no palpitations Gastrointestinal: no abdominal pain, no nausea, no vomiting, no constipation and no diarrhea/loose stools Genitourinary: no dysuria or no urinary frequency Integumentary: + non-healing lesions (deep lesion over posterior r. ankle, near Achilles tendon) and + erythema Physical Exam Constitutional: WD/WN, vitals as above Respiratory: normal respiratory effort, lungs clear to auscultation Cardiovascular: RRR, no murmur, no edema Gastrointestinal (Abdomen): normal bowel sounds, soft, nontender, no hepatosplenomegaly Psychiatric: Orientation: oriented x 3 Results & Data Results & Data Vital Signs (Past 12 Hours) Vital Signs Temp Pulse Pulse Pulse Resp BP BP 08/04/23 08:03 36.8 C 114 H 16 146/67 H 08/04/23 03:47 68 19 08/04/23 03:23 36.6 C 77 18 119/65 08/04/23 00:00 68 08/03/23 23:53 66 14 08/03/23 22:23 37.1 C 73 18 128/76 Pulse Ox O2 Del Method 08/04/23 08:03 95 Room Air 08/04/23 03:47 98 08/04/23 03:23 99 CPAP 08/04/23 00:00 08/03/23 23:53 96 08/03/23 22:23 96 CPAP (8) DM type 2 (diabetes mellitus, type 2) Diabetes mellitus complication status: with skin complications Diabetes mellitus termite treater insulin use: unspecified termite treater insulin use status (9) Atrial fibrillation Atrial fibrillation type: unspecified Qualified Code(s): I48.91 - Unspecified atrial fibrillation
--- NOTE | 2023-08-04 09:49 | Hospitalist Progress Note ---
Date of Service August 04, 2023 Assessment & Plan (1) Foot pain, right: Plan: -Currently afebrile, hemodynamically stable, no leukocytosis- not meeting SIRS criteria -XR of R ankle w/o obvious bony erosions/change concerning for osteomyelitis; Patients MRI results favored acute osteomyelitis of the calcaneus -Patients bone biopsy and deep culture from right ankle were both negative for any organisms. Will continue to monitor cultures for 48 hours to see if there is any growth. -Doppler of the lower extremities revealed Hemodynamically significant stenosis with monophasic waveforms in the calf vessels. Elevated velocities are in the mid right peroneal artery. Right ankle-brachial indices were not elevated. -Because infection does not extend to the bone, patient is to continue with vascular surgery to improve perfusion status and consult with wound care for regular IV antibiotic therapy and wound care. -Continue Zosyn and daptomycin -Monitor CBC (2) Open ankle wound: Plan: -See Bone biopsy and deep culture results above, management and plan above (3) Elevated troponin: Plan: -Pt is free of acute coronary symptoms and EKG did not feature ST change concerning for ischemia -Troponin elevation likely type II FL/demand from acute illness + atrial fibrillation + infection from open ankle wound -Downtrending, 107->99, continue to monitor (4) Hypomagnesemia: Plan: -Mg 1.3 on admission and trending upward today at 1.6 post repletion -Likely cause of pt's atrial fibrillation along with acute infection -Monitor Mg (5) Anemia: Plan: -Hgb 10.7 today -Likely anemia of chronic disease -No bleeding concern at present -Monitor CBC (6) HTN (hypertension): Plan: -BP stable -Continue carvedilol, eplerenone (7) Dyslipidemia: Plan: -Pt is not on a statin despite his multiple comorbidities including DM2 w/ complication leading to PAD/PVD -Deferring statin initiation to PCP (8) DM type 2 (diabetes mellitus, type 2): Plan: -DM2 w/ complications of vascular disease and now with possible osteomyelitis -Hold home metformin, was previously on Trulicity per EMR -Lantus, SSI -Continue gabapentin and Celexa for neuropathy (9) Atrial fibrillation: Plan: -Pt is currently in atrial fibrillation, likely precipitated by hypomagnesemia + acute infection -Currently rate-controlled -Normally anticoagulated with warfarin, INR 2.8 and therapeutic on admission -Will hold warfarin for now since therapeutic and possibility of surgical intervention in near future pending clinical course -Continue carvedilol -Telemetry monitoring (10) Sleep apnea: Plan: -CPAP Hs -Patient has been using a CPAP in the hospital at night (11) Congestive heart failure: Plan: -Not in exacerbation presently -CXR does not demonstrate congestion, pt is also saturating well on RA w/ clear lung exam -Continue carvedilol, eplerenone -Patient was previously on Lasix but seemingly discontinued per EMR (12) GERD (gastroesophageal reflux disease): Plan: -Continue omeprazole (13) Depression: Plan: -Continue Celexa (14) Gout: Plan: -Continue febuxostat (15) Insomnia: Plan: -Continue Seroquel Plan FENGI: DM2 Code status: Full DVT prophylaxis: Holding warfarin, therapeutic INR presently Isolation: None Unit: Medical/surgical with telemetry Disposition planning: Anticipate need for SNF Admission and Anticipated Discharge Date Admission Date: August 03, 2023 Supervising Physician Co-Signing Physician Notes I personally examined the patient and verified all brooks points of history and exam, discussed case, and agree with decision making with Dr Vyas and Juanita Merino MS2 Feeling pretty good postop. Would like to have vascular surgery see him here. He is hoping that he can have revascularization procedure sooner rather than later given his overall situation. Vitals noted, in general he is awake and alert pleasant no distress. HEENT normocephalic atraumatic mucous membranes moist. Leg is in a dressing. No tracking erythema. Peripheral arterial disease with vascular insufficiency ulcer and surrounding cellulitis/Achilles tendinitisfortunately does not appear that he actually had osteomyelitis. Obviously await cultures. Continue broad antibiotics pending cultures and ongoing improvement, and ask vascular to see him in regards to his PAD. DVT prophylaxisLovenox Otherwise as above Subjective Thomas Weir is a 67 year old male with a past medical history of Hypertension, Hyperlipidemia, Type II diabetes with neuropathy, PAD/PVD, atrial fibrillation, obstructive sleep apnea, insomnia, depression, congestive heart failure, GERD, and gout who presented to the ED yesterday with foot pain and was admitted for wound infection. Last night, patient had his bone biopsy with Dr. Rush. They excised necrotic soft tissue and achilles tendon of the right foot and a bone biopsy of the right calcaneus was also done.He is aware that his surface wound culture from right ankle revealed rare Gram Positive Cocci and moderate Gram Negative Bacilli while bone biopsy of right calcaneus and deep culture of right ankle from orthopedics procedure were both negative for any organisms. Patient also met with case management and he requested further instructions for daily wound care. He mentions that the throbbing right ankle pain is currently at an 8/10, but he is able to tolerate it well with pain management. Review of Systems Review of Systems: General: Reports fevers and chills. Denies unintentional weightloss and fatigue Respiratory: Denies cough, shortness of breath and wheezing, and chest pain Cardiovascular: Denies lower extremity edema and palpitations MSK: Reports severe right ankle and foot pain. Denies joint pains and muscle weakness GI: Denies nausea, vomiting, abdominal pain, and any changes in bowel movements : Denies dysuria, retention, hematuria Skin: Reports mild warmth, swelling, redness, and pain in his right ankle and foot along with an open wound. Denies rashes, lesions, moles, and skin concerns Heme/Lymph: Denies bruising and bleeding Physical Exam Physical Exam: General: Patient is a tired appearing male, awake, alert, and oriented, in no acute distress Eye: PERRL (pupils equal and responsive to light), EOMI (extraocular motions intact) HEENT: normocephalic, atraumatic, no lymphadenopathy, trachea midline, no JVD Respiratory: lungs CTA, BS equal, symmetrical expansion, no rales, rhonchi or wheezing CV: Irregularly irregular rhythm with regular rate, no murmurs, rubs, or gallops, no edema, capillary refill < 2s GI: normal bowel sounds, abdomen soft, non-tender, non-distended, no organomegaly : no CVA tenderness Integumentary: Warmth, swelling, and erythema in right ankle and foot along with ulcerated wound in posterior ankle that is tender to palpation with purulent drainage. Neurologic: alert and oriented Psychiatric: calm and cooperative, appropriate mood and affect Results & Data Results & Data Vital Signs (Past 12 Hours) Vital Signs Temp Pulse Pulse Pulse Resp BP BP 08/04/23 08:03 36.8 C 114 H 16 146/67 H 08/04/23 03:47 68 19 08/04/23 03:23 36.6 C 77 18 119/65 08/04/23 00:00 68 08/03/23 23:53 66 14 08/03/23 22:23 37.1 C 73 18 128/76 Pulse Ox O2 Del Method 08/04/23 08:03 95 Room Air 08/04/23 03:47 98 08/04/23 03:23 99 CPAP 08/04/23 00:00 08/03/23 23:53 96 08/03/23 22:23 96 CPAP Laboratory Results 08/04/23 08/04/23 08/03/23 08:24 06:38 18:02 WBC 7.14 RBC 3.53 L Hgb 10.7 L Hct 33.7 L MCV 95.5 MCH 30.3 MCHC 31.8 L RDW Std Deviation 50.8 H RDW Coeff of Viola 14.6 H Plt Count 249 MPV 9.7 Immature Gran % (Auto) 0.6 Neut % (Auto) 64.2 Lymph % (Auto) 18.8 Gates % (Auto) 10.9 Eos % (Auto) 4.8 Baso % (Auto) 0.7 Neut # (Auto) 4.59 Lymph # (Auto) 1.34 Gates # (Auto) 0.78 H Eos # (Auto) 0.34 Baso # (Auto) 0.05 Immature Gran # (Auto) 0.04 PT 28.3 H INR 2.8 H Sodium 139 Potassium 4.3 Chloride 106 Carbon Dioxide 26 Anion Gap 7 BUN 19 Creatinine 0.92 Est Cr Clr Drug Dosing 110.5 Est GFR ( Amer) 98.7 Est GFR (Non-Af Amer) 85.2 BUN/Creatinine Ratio 20.7 H Glucose 105 H POC Glucose 109 H 115 H Estimat Average Glucose Hemoglobin A1c Calcium 9.2 Magnesium 1.6 L 08/03/23 07:29 WBC RBC Hgb Hct MCV MCH MCHC RDW Std Deviation RDW Coeff of Viola Plt Count MPV Immature Gran % (Auto) Neut % (Auto) Lymph % (Auto) Gates % (Auto) Eos % (Auto) Baso % (Auto) Neut # (Auto) Lymph # (Auto) Gates # (Auto) Eos # (Auto) Baso # (Auto) Immature Gran # (Auto) PT INR Sodium Potassium Chloride Carbon Dioxide Anion Gap BUN Creatinine Est Cr Clr Drug Dosing Est GFR ( Amer) Est GFR (Non-Af Amer) BUN/Creatinine Ratio Glucose POC Glucose Estimat Average Glucose 131 Hemoglobin A1c 6.2 H Calcium Magnesium Diagnostic Findings Laboratory Results WBC 7.14 K/ul (4.8-10.8) 08/04/23 06:38 RBC 3.53 M/uL (4.70-6.10) L 08/04/23 06:38 Hgb 10.7 g/dl (14.0-18.0) L 12 06:38 Hct 33.7 % (42.0-52.0) L 08/04/23 06:38 MCV 95.5 fL (80.0-100.0) 08/04/23 06:38 MCH 30.3 pg (25.0-34.0) 08/04/23 06:38 MCHC 31.8 g/dL (32.0-36.0) L 08/04/23 06:38 RDW Std Deviation 50.8 fL (36.4-46.3) H 08/04/23 06:38 RDW Coeff of Viola 14.6 % (11.5-14.5) H 08/04/23 06:38 Plt Count 249 K/uL (130-400) 08/04/23 06:38 MPV 9.7 fL (9.4-12.4) 08/04/23 06:38 Immature Gran % (Auto) 0.6 % 08/04/23 06:38 Neut % (Auto) 64.2 % 08/04/23 06:38 Lymph % (Auto) 18.8 % 08/04/23 06:38 Gates % (Auto) 10.9 % 08/04/23 06:38 Eos % (Auto) 4.8 % 08/04/23 06:38 Baso % (Auto) 0.7 % 08/04/23 06:38 Neut # (Auto) 4.59 K/uL (1.40-6.50) 08/04/23 06:38 Lymph # (Auto) 1.34 K/uL (1.20-3.40) 08/04/23 06:38 Gates # (Auto) 0.78 K/uL (0.11-0.59) H 08/04/23 06:38 Eos # (Auto) 0.34 K/uL (0.00-0.50) 08/04/23 06:38 Baso # (Auto) 0.05 K/uL (0.00-0.20) 08/04/23 06:38 Immature Gran # (Auto) 0.04 K/uL (0.01-0.20) 08/04/23 06:38 ESR 60 mm/hr (0-20) H 08/03/23 07:29 PT 28.3 Seconds (9.0-12.0) H 08/04/23 06:38 INR 2.8 (0.9-1.1) H 08/04/23 06:38 APTT 48 Seconds (21-31) H 08/02/23 19:55 PTT Ratio 1.7 08/02/23 19:55 Sodium 139 mmol/L (136-145) 08/04/23 06:38 Potassium 4.3 mmol/L (3.5-5.1) 08/04/23 06:38 Chloride 106 mmol/L (98-107) 08/04/23 06:38 Carbon Dioxide 26 mmol/L (21-32) 08/04/23 06:38 Anion Gap 7 (3-11) 08/04/23 06:38 BUN 19 mg/dl (6-23) 08/04/23 06:38 Creatinine 0.92 mg/dl (0.6-1.4) 08/04/23 06:38 Est Cr Clr Drug Dosing 110.5 ml/min 08/04/23 06:38 Est GFR ( Amer) 98.7 ml/min 08/04/23 06:38 Est GFR (Non-Af Amer) 85.2 ml/min 08/04/23 06:38 BUN/Creatinine Ratio 20.7 (10-20) H 08/04/23 06:38 Glucose 105 mg/dl (70-99(Fasting)) H 08/04/23 06:38 POC Glucose 109 mg/dl (70-99) H 08/04/23 08:24 Estimat Average Glucose 131 mg/dl 08/03/23 07:29 Hemoglobin A1c 6.2 % (4.5-5.6) H 08/03/23 07:29 Lactate 1.6 mmol/L (0.4-2.0) 08/02/23 19:55 Calcium 9.2 mg/dl (8.6-10.3) 08/04/23 06:38 Magnesium 1.6 mg/dl (1.7-2.4) L 08/04/23 06:38 Total Bilirubin 0.4 mg/dl (0.2-1.0) 08/02/23 19:55 AST 23 U/L (13-39) 08/02/23 19:55 ALT 18 U/L (7-52) 08/02/23 19:55 Alkaline Phosphatase 63 U/L (34-104) 08/02/23 19:55 Troponin I High Sens 99.1 pg/ml (0-20) H* 08/02/23 22:12 C-Reactive Protein 11.49 mg/dl (0-0.5) H 08/03/23 07:29 Total Protein 7.3 gm/dl (6.0-8.3) 08/02/23 19:55 Albumin 4.0 gm/dl (3.4-5.0) 08/02/23 19:55 Globulin 3.3 gm/dl (2.5-4.0) 08/02/23 19:55 Albumin/Globulin Ratio 1.2 (0.9-2) 08/02/23 19:55 Procalcitonin 0.14 ng/ml (0-0.5) 08/02/23 19:55 Urine Color Yellow 08/02/23 23:15 Urine Appearance Clear (Clear) 08/02/23 23:15 Urine pH 5.0 (4.5-7.5) 08/02/23 23:15 Ur Specific [place] 1.020 (1.000-1.030) 08/02/23 23:15 Urine Protein Negative (Negative) 08/02/23 23:15 Urine Glucose (UA) Negative (Negative) 08/02/23 23:15 Urine Ketones Negative (Negative) 08/02/23 23:15 Urine Blood Negative (Negative) 08/02/23 23:15 Urine Nitrite Negative (Negative) 08/02/23 23:15 Urine Bilirubin Negative (Negative) 08/02/23 23:15 Urine Urobilinogen Negative (Negative) 08/02/23 23:15 Ur Leukocyte Esterase Negative (Negative) 08/02/23 23:15 SARS-CoV-2, RNA, NAAT NEGATIVE (NEGATIVE) 08/02/23 23:15 Impressions Chest X-Ray 08/02/23 19:12 XR chest 1V not portable CLINICAL HISTORY: Sepsis. COMPARISON STUDY: Chest radiograph January 09, 2019. FINDINGS: Lung volumes are normal. Lungs are clear. There is no pneumothorax or pleural effusion. Cardiomegaly is unchanged. Mediastinal contours are normal. There is no evidence for pulmonary edema. IMPRESSION: No acute cardiopulmonary findings. No change in appearance of the chest. ACT 112: Negative or not required by law. Electronically signed by: Denilson Louis M.D. 08/03/2023 7:09 AM Ankle X-Ray 08/02/23 23:05 XR ankle RT min 3V routine CLINICAL HISTORY: Posterior ankle ulcer, evaluate for osseous involvement. COMPARISON: None FINDINGS: Extensive vascular calcification is incidentally noted. There is no acute fracture. Note is made of soft tissue defect of the posterior right ankle overlying the Achilles. This represents a wound. There are associated linear and dystrophic soft tissue calcifications. Mild osseous irregularity of the calcaneus at the Achilles insertion is noted. No additional bony erosions are identified. IMPRESSION: 1. No acute fractures within the right ankle. 2. Posterior right ankle wound involving the Achilles with associated linear and dystrophic soft tissue calcifications. Cortical irregularity and subtle lucency of the posterior superior calcaneus at the Achilles insertion. This is nonspecific however acute osteomyelitis cannot be excluded. ACT 112: Negative or not required by law. Electronically signed by: Denilson Louis M.D. 08/03/2023 6:36 AM Ankle MRI 08/03/23 00:53 MRI OF THE RIGHT ANKLE WITH AND WITHOUT CONTRAST CLINICAL HISTORY: Posterior right ankle wound. Previous Achilles surgery. Evaluate for osteomyelitis. COMPARISON STUDY: Right ankle radiographs August 02, 2023. TECHNIQUE: Utilizing a 1.5 [place] magnet and dedicated coil, multiplanar, multi echo imaging of the right ankle was performed pre and postcontrast administration. Intravenous injection of 13 cc of Gadavist was uneventful. FINDINGS: Note is made of a soft tissue defect of the posterior right ankle overlying the Achilles which extends for approximately 4.9 cm in the cranio caudal dimension. The underlying Achilles extends through the defect and is exposed. Adjacent soft tissue edema and enhancement is present. No rim enhancing fluid collection is noted. Foci of susceptibility artifact within the Achilles are from prior repair. There is no full-thickness Achilles tear. Achilles tendinopathy is noted with mild partial thickness tear of the distal Achilles. Note is made of moderate fluid within the retrocalcaneal bursa. T1 and T2 hypointense foci reflect calcifications or soft tissue gas. Note is made of focal moderate edema and enhancement within the adjacent posterior superior calcaneus. T1 marrow signal is diminished. No additional sites of marrow edema are present. No acute fractures are present. There is plantar calcaneal spurring and mild thickening of the proximal plantar fascia. This is chronic. High-grade partial-thickness tear of peroneus longus is incidentally noted. Tendinopathy with mild partial thickness tear of the distal posterior tibial tendon is present. The extensor and flexor tendons are intact. There is no tibiotalar or subtalar joint effusion. IMPRESSION: 1. Soft tissue defect of the posterior right ankle consistent with wound. The Achilles tendon extends through the defect and is exposed. Adjacent edema and enhancement suggestive of cellulitis. No rim-enhancing fluid collection to suggest abscess. 2. Fluid within the retrocalcaneal bursa with associated enhancement. Moderate edema and enhancement within the adjacent posterior superior aspect of the calcaneus with diminished T1 marrow signal. Although this edema could be insertional/degenerative, acute osteomyelitis of the calcaneus is favored. T1 and T2 hypointense foci within the bursa could reflect calcifications or soft tissue gas. 3. Previous Achilles repair. No full-thickness tear. Moderate Achilles tendinopathy with mild partial thickness tear of the Achilles. ACT 112: Negative or not required by law. Electronically signed by: Denilson Louis M.D. 08/03/2023 7:46 AM Foot MRI 08/03/23 00:53 MRI OF THE RIGHT FOREFOOT COMBO CLINICAL HISTORY: Infection. Osteomyelitis. COMPARISON STUDY: Radiographs of the right ankle dated 08/02/2023. TECHNIQUE: MRI of the right forefoot is performed utilizing various T1 and T2- weighted sequences in the axial, sagittal, and coronal planes. Contrast-enhanced sequences were acquired following the IV administration of 13 mL of Gadavist. Note that interpretation is suboptimal without radiographic correlate of the foot. The examination is modestly degraded by motion artifact. FINDINGS: There is no marrow signal abnormality seen throughout the forefoot, typical for osteomyelitis. There is moderate osteoarthritic change at the first metatarsophalangeal joint with associated marrow edema. Milder osteoarthritic change is seen throughout the forefoot and midfoot. The Lisfranc ligament is maintained. Soft tissue edema is noted in the midfoot. There is evidence of a n onspecific myositis in the flexor musculature. Imaged portions of the plantar fascia appear intact. No enhancing lesion is identified on the postcontrast images. Imaged portions of the flexor and extensor tendons appear intact. IMPRESSION: 1. There is no marrow abnormality identified in the right forefoot typical for osteomyelitis. 2. Arthritic change as above, greatest at the first metatarsophalangeal joint. 3. Soft tissue edema is nonspecific. Correlate for evidence of cellulitis. 4. No enhancing soft tissue lesion is identified. Dictated: 08/03/2023 9:24 AM Transcribed: 08/03/2023 9:34 AM Hussein [id number] [email or web address] Electronically signed by: Huan Murcia M.D. 08/03/2023 4:02 PM Duplex Scan Lower Extremity Artery 08/03/23 13:30 US arterial duplex LE RT CLINICAL HISTORY: vascular insufficiency ulcer TECHNIQUE: Real-time grayscale and color and spectral Doppler ultrasound imaging of the right lower extremity arteries was performed. Measurements based on NASCET criteria. COMPARISON: None available at the time of this dictation. FINDINGS: Triphasic waveforms with normal velocities are seen in the common femoral, deep femoral, superficial femoral, and popliteal arteries. Anterior tibial artery: Monophasic waveforms. PSV 70 cm/s. Posterior tibial artery: Monophasic waveforms. PSV 60 cm/s. Peroneal artery: Monophasic waveforms. PSV 137 cm/s. Dorsalis pedis: Monophasic waveforms. PSV 69 cm/s. ANKLE/BRACHIAL INDEX (CHELY): Brachial: Right: 142 mmHg. Left: 164 mmHg. Ankle (dorsalis pedis): Right: >255 mmHg. Ankle (posterior tibial): Right: >255 mmHg. Ankle/brachial index: Right: not calculated, Reference ranges: Normal Ankle/Brachial Index (CHELY) 1.0-1.4; 0.91-0.99 borderline; < or = 0.9 abnormal (0.7-0.89 mild, 0.51-0.69 moderate, < or = 0.5 severe peripheral arterial disease). Normal Toe/Brachial Index (TBI) > or = 0.6; < 0.6 abnormal (0.34-0.59 mild, 0.12-0.34 moderate, < or = 0.11 severe peripheral arterial disease). IMPRESSION: 1. Hemodynamically significant stenosis with monophasic waveforms in the calf vessels. Elevated velocities are in the mid right peroneal artery. 2. Right ankle-brachial indices are not elevated. ACT 112: Negative or not required by law. Electronically signed by: Angel Witt M.D. 08/03/2023 8:28 PM (8) DM type 2 (diabetes mellitus, type 2) Diabetes mellitus complication status: with skin complications Diabetes mellitus assisted insulin use: unspecified assisted insulin use status (9) Atrial fibrillation Atrial fibrillation type: unspecified Qualified Code(s): I48.91 - Unspecified atrial fibrillation
--- NOTE | 2023-08-04 19:00 | Billing Data ---
Date of Service August 04, 2023 Coding Level of Care Code 64478 SUB INP/OBS CARE
[2023-08-04] MEDS: ENOXAPARIN INJ 40 MG/0.4 ML SYR SQ SCH (21:13)
[2023-08-04] MEDS: QUEtiapine FUMARATE 25 MG TABLET PO SCH (21:15)
[2023-08-05] MEDS: oxyCODONE HCL IR 5 MG TAB (IMMEDIATE RELEASE) PO PRN ×4 (01:24→20:03)
[2023-08-05] MEDS: DAPTOmycin 400 MG in SYRINGE 0 ML IV SCH (02:30)
[2023-08-05] MEDS: PIPERACILLIN/TAZOBACTAM 4.5 GM in DEXTROSE 5% MINI-B 100 ML IV SCH ×3 (04:50→20:00)
[2023-08-05] MEDS: ACETAMINOPHEN 500 MG TAB PO SCH ×3 (04:55→20:03)
[2023-08-05 06:10] LABS: Basophils # (auto) 0.06 K/uL (0.00-0.20); Basophils % (auto) 0.8 %; Eosinophils # (auto) 0.34 K/uL (0.00-0.50); Eosinophils % (auto) 4.7 %; Hemoglobin 10.6 g/dl (14.0-18.0); Immature Granulocytes # (auto) 0.05 K/uL (0.01-0.20); Immature Granulocytes % (auto) 0.7 %; Lymphocytes # (auto) 1.55 K/uL (1.20-3.40); Lymphocytes % (auto) 21.5 %; Mean Corpuscular Hemoglobin 30.7 pg (25.0-34.0); Mean Corpuscular Hgb Conc 33.1 g/dL (32.0-36.0); Mean Corpuscular Volume 92.8 fL (80.0-100.0); Mean Platelet Volume 9.9 fL (9.4-12.4); Monocytes # (auto) 0.65 K/uL (0.11-0.59); Neutrophils # (auto) 4.56 K/uL (1.40-6.50); Neutrophils % (auto) 63.3 %; Platelet Count 261 K/uL (130-400); RDW Coefficient of Variation 14.3 % (11.5-14.5); Red Blood Count 3.45 M/uL (4.70-6.10); White Blood Count 7.21 K/ul (4.8-10.8)
[2023-08-05 06:30] LABS: BUN Creatinine Ratio 16.4 (10-20); Calcium 9.1 mg/dl (8.6-10.3); Creatinine Clr Calc Pharmacy 79.4 ml/min; Est GFR (African American) 66.2 ml/min; Est GFR (Non-African American) 57.1 ml/min; Magnesium 1.7 mg/dl (1.7-2.4); Potassium 4.3 mmol/L (3.5-5.1)
[2023-08-05 06:37] LABS: INR 2.3 (0.9-1.1)
--- NOTE | 2023-08-05 07:09 | Hospitalist Progress Note ---
Date of Service August 05, 2023 Assessment & Plan (1) Foot pain, right: (2) Open ankle wound: (3) Elevated troponin: (4) Hypomagnesemia: (5) Anemia: (6) HTN (hypertension): (7) Dyslipidemia: (8) DM type 2 (diabetes mellitus, type 2): (9) Atrial fibrillation: (10) Sleep apnea: (11) Congestive heart failure: (12) GERD (gastroesophageal reflux disease): (13) Depression: (14) Gout: (15) Insomnia: Plan Pt is a 67 yo male who presents to the hospital on 08/03/23 for R ankle ulcer. At this time, awaiting vascular surgery recommendations. Pt seems like he would benefit from revascularization sooner rather than later if possible to improve wound healing and avoid BKA, at least for now. In meantime, will continue current antibiotics. Right ankle ulcer - XR of R ankle w/o obvious bony erosions/change concerning for osteomyelitis; Patients MRI results favored acute osteomyelitis of the calcaneus - Doppler of the lower extremities revealed hemodynamically significant stenosis with monophasic waveforms in the calf vessels. Elevated velocities are in the mid right peroneal artery. - diabetic vs poor peripheral vascularization, likely a mix of both contributing to his current condition - podiatry did debridement on 08/03/23 - culture from debridement pending, reincubating currently - Continue Zosyn and daptomycin - awaiting vasc surg recommendations Constipation - restarted home metamucil Elevated troponin - trop elevated 107, downtrended to 99 - EKG showed no significant ST changes - likely secondary to demand from acute illness + atrial fibrillation + infec tion from open ankle wound Hypomagnesemia -Mg 1.3 on admission, repleted, today 1.7 - possible cause of pt's atrial fibrillation along with acute infection -Monitor Mg Anemia -Hgb 10.7, 10.6, stable -Likely anemia of chronic disease -No bleeding concern at present -Monitor CBC HTN (hypertension) -Continue carvedilol, eplerenone Dyslipidemia -Pt is not on a statin despite his multiple comorbidities including DM2 w/ complication leading to PAD/PVD DM type 2 (diabetes mellitus, type 2) -DM2 w/ complications of vascular disease and now with possible osteomyelitis -Hold home metformin, was previously on Trulicity per EMR -Lantus, SSI -Continue gabapentin and Celexa for neuropathy - last HA1c 6.2% on 08/03 Atrial fibrillation - in afib on admission, rate controlled - normally anticoagulated with warfarin, INR 2.8 and therapeutic on admission -Continue carvedilol Sleep apnea -CPAP HS Congestive heart failure -doubt in exacerbation presently -CXR does not demonstrate congestion, pt is also saturating well on RA w/ clear lung exam -Continue carvedilol, eplerenone -Patient was previously on Lasix but seemingly discontinued per EMR, can restart if fluid overload noted for symptom relief GERD (gastroesophageal reflux disease) -Continue omeprazole Depression -Continue Celexa Gout -Continue febuxostat Insomnia -Continue Seroquel KEVINI: DM2 Code status: Full DVT prophylaxis: Holding warfarin, therapeutic INR presently Isolation: None Unit: Medical/surgical with telemetry Disposition planning: Anticipate need for SNF Admission and Anticipated Discharge Date Admission Date: August 03, 2023 Supervising Physician Co-Signing Physician Notes I personally examined the patient and verified all brooks points of history and exam, discussed case, and agree with decision making with Dr Manley No new problems or complaints. Outlined overall game plan. Stable on current antibiotics, awaiting vascular surgery input. Vitals noted, in general he is awake and alert pleasant no distress. HEENT normocephalic atraumatic mucous membranes moist. Leg is in a dressing. No tracking erythema. Peripheral arterial disease with vascular insufficiency ulcer and surrounding cellulitis/Achilles tendinitisfortunately does not appear that he actually had osteomyelitis. With cultures growing Pseudomonascontinue broad antibiotics pending ongoing improvement, awaiting vascular input in regards to his peripheral arterial disease, hopefully will be able to have expedited intervention for this. DVT prophylaxisLovenox Otherwise as above Subjective Pt is a 67 yo male who presents to the hospital on 08/03/23 for R ankle ulcer. Today, pt states that today he does not feel as energetic as yesterday, but otherwise is feeling fine. He does state that he feels like he may be started to get a bit constipated. He states he takes metamucil daily at home and has been without it during his stay here. Last BM was a few days ago. Otherwise he is doing well today. Review of Systems Review of Systems: Constitutional: denies fever, chills, Cardio: denies chest pain, Resp: denies shortness of breath, Physical Exam Physical Exam: General:Alert and oriented, no acute distress, Cardio: Atrial fibrillation, regular rate Resp:Lungs clear to auscultation b/l, no wheezes or rhonchi, GI: Soft and nontender, nondistended, bowel sounds active Skin: Warm, pink, dry, Ext: pitting 2+ LE edema noted Psych: Mood-affect congruence. Results & Data Results & Data Vital Signs (Past 12 Hours) Vital Signs Temp Pulse Pulse Resp BP BP Pulse Ox 08/05/23 04:24 36.6 C 73 18 160/82 H 97 08/05/23 02:45 55 L 24 97 08/04/23 22:53 37.1 C 94 H 16 132/75 96 08/04/23 22:18 98 H 24 96 08/04/23 22:00 83 08/04/23 19:30 36.8 C 72 20 127/78 98 O2 Del Method 08/05/23 04:24 CPAP 08/05/23 02:45 08/04/23 22:53 CPAP 08/04/23 22:18 08/04/23 22:00 08/04/23 19:30 Room Air Resident Activity Tracking Resident Involvement: Resident Care Provided Care Provided: Adult Hospital Medicine (8) DM type 2 (diabetes mellitus, type 2) Diabetes mellitus complication status: with skin complications Diabetes mellitus custodial insulin use: unspecified terminal system operator insulin use status (9) Atrial fibrillation Atrial fibrillation type: unspecified Qualified Code(s): I48.91 - Unspecified atrial fibrillation
[2023-08-05] MEDS: GABAPENTIN 300 MG CAP PO SCH ×3 (08:13→20:02)
[2023-08-05] MEDS: carvediloL 6.25 MG TAB PO SCH ×2 (08:13→20:01)
[2023-08-05] MEDS: CITALOPRAM 20 MG TAB PO SCH (08:14)
[2023-08-05] MEDS: PANTOprazole 40 MG TAB PO SCH (08:14)
[2023-08-05] MEDS: CEROVITE ADV FORMULA TAB PO SCH (08:14)
[2023-08-05] MEDS: ENOXAPARIN INJ 40 MG/0.4 ML SYR SQ SCH ×2 (08:14→20:01)
[2023-08-05] MEDS: PSYLLIUM or GUAR GUM FIBER POWDER PACKET PO SCH (14:38)
--- NOTE | 2023-08-05 14:40 | Billing Data ---
Date of Service August 05, 2023 Coding Level of Care Code 35605 SUB INP/OBS CARE
--- NOTE | 2023-08-05 19:33 | Orthopedic Progress Note ---
Date of Service August 05, 2023 Assessment & Plan (1) Open ankle wound: Plan: Patient seen, evaluated, and treated. Deep wound culture growth (+) Pseudomonas, No growth to R calcaneus. Continuing to follow while in house. Thank you for allowing me to participate in the care of this Patient. (2) DM type 2 (diabetes mellitus, type 2): Admission and Anticipated Discharge Date Admission Date: August 03, 2023 Subjective Patient seen at bedside resting comfortably. He notes ambulating to nurses station earlier in day and felt some pain in right posterior ankle. Patient has no other complaints. Review of Systems Review of Systems: All systems reviewed & are unremarkable except as noted in Subjective Physical Exam Constitutional: + obese, cooperative and comfortable Eyes: normal visual lee by confrontation Respiratory: normal respiratory effort Cardiovascular: Rate/Rhythm: + irregularly irregular Musculoskeletal: Extremities: extremities normal to inspection Skin: + ulcer (Right posterior ankle over Achi lles tendon), + skin atrophy and + erythema (decreasing RLE) Neurologic: moves all extremities (Decreased epicritic sensation bilateral) Psychiatric: Orientation: alert and oriented x 3 Results & Data Vital Signs (Past 12 Hours) Vital Signs Temp Pulse Pulse Resp BP Pulse Ox O2 Del Method 08/05/23 15:55 36.6 C 77 18 130/75 97 Room Air 08/05/23 15:21 66 08/05/23 11:37 37 C 46 L 18 136/72 99 Room Air 08/05/23 09:00 69 08/05/23 08:36 36.4 C L 71 18 155/70 H 97 Room Air [place] [address] / Director: Justin Mcrae M.D. Clinical Laboratory Report Name: ISABELLA HUTCHINSON Blaise Acct: [id number] Status: ADM IN : 1955 [facility] [place] Date: 08/03/23 Age: 67 Sex: M Dis Date: Loc: [address] Rm/Bed: N281-2 Spec: [id number] Collected: 08/03/23 Received: 08/03/[address]: Dean Rush, DPM, MS Copy To: Pina Cho MD Source: Ankle,Right OV Order: Ordered: Aer/Laya Cult/Sm Comments: Comment 2. deep culture right ankle wound Procedure Result Verified Site Gram Stain Final 08/03/23 Gram Stain Result No WBCs Seen, No Organisms Seen Aero/Laya Cult Preliminary 08/05/23 Organism 1 Probable Pseudomonas species Quantity Few Sens Sensitivities to Follow Name: ISABELLA HUTCHINSON : 1955 PAGE 1 Printed: 08/05/231932 END OF REPORT (2) DM type 2 (diabetes mellitus, type 2) Diabetes mellitus complication status: with skin complications Diabetes mellitus terminal carman insulin use: unspecified snf insulin use status
[2023-08-05] MEDS: QUEtiapine FUMARATE 25 MG TABLET PO SCH (20:02)
[2023-08-06] MEDS: DAPTOmycin 400 MG in SYRINGE 0 ML IV SCH (02:28)
[2023-08-06] MEDS: oxyCODONE HCL IR 5 MG TAB (IMMEDIATE RELEASE) PO PRN ×3 (02:34→20:15)
[2023-08-06] MEDS: PIPERACILLIN/TAZOBACTAM 4.5 GM in DEXTROSE 5% MINI-B 100 ML IV SCH ×3 (04:47→20:21)
[2023-08-06] MEDS: ACETAMINOPHEN 500 MG TAB PO SCH ×3 (06:12→23:39)
--- NOTE | 2023-08-06 06:58 | Hospitalist Progress Note ---
Date of Service August 06, 2023 Assessment & Plan (1) Foot pain, right: (2) Open ankle wound: (3) Elevated troponin: (4) Hypomagnesemia: (5) Anemia: (6) HTN (hypertension): (7) Dyslipidemia: (8) DM type 2 (diabetes mellitus, type 2): (9) Atrial fibrillation: (10) Sleep apnea: (11) Congestive heart failure: (12) GERD (gastroesophageal reflux disease): (13) Depression: (14) Gout: (15) Insomnia: Plan Pt is a 67 yo male who presents to the hospital on 08/03/23 for R ankle ulcer. At this time, awaiting vascular surgery recommendations. In meantime, will continue current antibiotics. Started scheduled miralax TID today for constipation. Right ankle ulcer - XR of R ankle w/o obvious bony erosions/change concerning for osteomyelitis; Patients MRI results favored acute osteomyelitis of the calcaneus - Doppler of the lower extremities revealed hemodynamically significant stenosis with monophasic waveforms in the calf vessels. Elevated velocities are in the mid right peroneal artery. - diabetic vs poor peripheral vascularization, likely a mix of both contributing to his current condition - podiatry did debridement on 08/03/23 - culture from debridement pending, reincubating currently - Continue Zosyn and daptomycin - awaiting vasc surg recommendations Constipation - restarted home metamucil yesterday - started miralax scheduled TID today Elevated troponin - trop elevated 107, downtrended to 99 - EKG showed no significant ST changes - likely secondary to demand from acute illness + atrial fibrillation + infection from open ankle wound Hypomagnesemia -Mg 1.3 on admission, repleted, today 1.7 - possible cause of pt's atrial fibrillation along with acute infection -Monitor Mg Anemia -Hgb 10.7, 10.6, stable -Likely anemia of chronic disease -No bleeding concern at present -Monitor CBC HTN (hypertension) -Continue carvedilol, eplerenone Dyslipidemia -Pt is not on a statin despite his multiple comorbidities including DM2 w/ complication leading to PAD/PVD DM type 2 (diabetes mellitus, type 2) -DM2 w/ complications of vascular disease and now with possible osteomyelitis -Hold home metformin, was previously on Trulicity per EMR -Lantus, SSI -Continue gabapentin and Celexa for neuropathy - last HA1c 6.2% on 08/03 Atrial fibrillation - in afib on admission, rate controlled - normally anticoagulated with warfarin, INR 2.8 and therapeutic on admission -Continue carvedilol Sleep apnea -CPAP HS Congestive heart failure -doubt in exacerbation presently -CXR does not demonstrate congestion, pt is also saturating well on RA w/ clear lung exam -Continue carvedilol, eplerenone -Patient was previously on Lasix but seemingly discontinued per EMR, can restart if fluid overload noted for symptom relief GERD (gastroesophageal reflux disease) -Continue omeprazole Depression -Continue Celexa Gout -Continue febuxostat Insomnia -Continue Seroquel KEVINI: DM2 Code status: Full DVT prophylaxis: Holding warfarin, therapeutic INR presently Isolation: None Unit: Medical/surgical with telemetry Disposition planning: Anticipate need for SNF Admission and Anticipated Discharge Date Admission Date: August 03, 2023 Supervising Physician Co-Signing Physician Notes I personally examined the patient and verified all brooks points of history and exam, discussed case, and agree with decision making with Dr Manley No new problems or complaints. no issues today. Stable on current antibiotics, awaiting vascular surgery input. Vitals noted, in general he is awake and alert pleasant no distress. HEENT normocephalic atraumatic mucous membranes moist. Leg is in a dressing. No tracking erythema. Peripheral arterial disease with vascular insufficiency ulcer and surrounding cellulitis/Achilles tendinitisfortunately does not appear that he actually had osteomyelitis. With cultures growing Pseudomonas/staphcontinue broad antibiotics pending ongoing improvement, awaiting vascular input in regards to his peripheral arterial disease, hopefully will be able to have expedited intervention for this. DVT prophylaxisLovenox Otherwise as above Subjective Pt is a 67 yo male who presents to the hospital on 08/03/23 for R ankle ulcer. Today, pt states he is doing well. He does state he feels like he is getting more backed up now and that the metamucil did not seem to help yesterday. He states he usually takes it daily and has been without it for the first few days of this hospital stay, so he states he feels like that lapse has him pretty backed up. Miralax was mentioned as an option and he states he would like to try that today because he states he will feel better if he can clear out a bit. Otherwise, he has no complaints. Tolerating oral intake well. Review of Systems Review of Systems: Constitutional: denies fever, chills, Cardio: denies chest pain, Resp: denies shortness of breath, Physical Exam Physical Exam: General:Alert and oriented, no acute distress, Cardio: Regular rate Resp:Lungs clear to auscultation b/l, no wheezes or rhonchi, GI: Soft and nontender, bowel sounds active Skin: Warm, pink, dry, Ext: pitting 2+ LE edema noted Psych: Mood-affect congruence. Results & Data Results & Data Vital Signs (Past 12 Hours) Vital Signs Temp Pulse Pulse Resp BP BP Pulse Ox 08/06/23 03:52 36.5 C 74 20 131/85 94 08/06/23 02:15 60 21 90 08/06/23 00:00 36.5 C 70 18 147/88 H 97 08/05/23 23:12 67 19 96 08/05/23 19:00 36.8 C 60 20 133/85 97 O2 Del Method FiO2 08/06/23 03:52 CPAP 08/06/23 02:15 08/06/23 00:00 Room Air 08/05/23 23:12 21 08/05/23 19:00 Room Air Resident Activity Tracking Resident Involvement: Resident Care Provided Care Provided: Adult Hospital Medicine (8) DM type 2 (diabetes mellitus, type 2) Diabetes mellitus complication status: with skin complications Diabetes mellitus terminal makeup operator insulin use: unspecified terminal makeup operator insulin use status (9) Atrial fibrillation Atrial fibrillation type: unspecified Qualified Code(s): I48.91 - Unspecified atrial fibrillation
[2023-08-06 07:17] LABS: Basophils # (auto) 0.06 K/uL (0.00-0.20); Basophils % (auto) 0.9 %; Eosinophils # (auto) 0.35 K/uL (0.00-0.50); Hematocrit (blood only) 32.7 % (42.0-52.0); Immature Granulocytes # (auto) 0.04 K/uL (0.01-0.20); Immature Granulocytes % (auto) 0.6 %; Lymphocytes # (auto) 1.46 K/uL (1.20-3.40); Lymphocytes % (auto) 20.9 %; Mean Corpuscular Hgb Conc 33.6 g/dL (32.0-36.0); Mean Corpuscular Volume 92.1 fL (80.0-100.0); Mean Platelet Volume 9.9 fL (9.4-12.4); Monocytes # (auto) 0.68 K/uL (0.11-0.59); Monocytes % (auto) 9.7 %; Neutrophils % (auto) 62.9 %; Platelet Count 269 K/uL (130-400); RDW Coefficient of Variation 14.3 % (11.5-14.5); RDW Standard Deviation 48.6 fL (36.4-46.3); Red Blood Count 3.55 M/uL (4.70-6.10); White Blood Count 6.99 K/ul (4.8-10.8)
[2023-08-06 07:36] LABS: BUN Creatinine Ratio 22.6 (10-20); Creatinine Clr Calc Pharmacy 95.5 ml/min; Est GFR (African American) 83.2 ml/min; Est GFR (Non-African American) 71.8 ml/min; Potassium 4.4 mmol/L (3.5-5.1)
[2023-08-06] MEDS: PANTOprazole 40 MG TAB PO SCH (08:11)
[2023-08-06] MEDS: GABAPENTIN 300 MG CAP PO SCH ×3 (08:11→20:23)
[2023-08-06] MEDS: carvediloL 6.25 MG TAB PO SCH ×2 (08:11→20:24)
[2023-08-06] MEDS: PSYLLIUM or GUAR GUM FIBER POWDER PACKET PO SCH (08:11)
[2023-08-06] MEDS: CEROVITE ADV FORMULA TAB PO SCH (08:11)
[2023-08-06] MEDS: CITALOPRAM 20 MG TAB PO SCH (08:11)
[2023-08-06] MEDS: ENOXAPARIN INJ 40 MG/0.4 ML SYR SQ SCH ×2 (08:12→20:24)
[2023-08-06] MEDS: POLYETHYLENE (MIRALAX) 17 GM PACK PO SCH ×3 (11:19→20:39)
--- NOTE | 2023-08-06 12:37 | Orthopedic Progress Note ---
Date of Service August 06, 2023 Assessment & Plan (1) Open ankle wound: Plan: Patient seen, evaluated, and treated. Patient is status post day#3 Right ankle debridement (DOS: 08/04/23) Dry Sterile dressing change. Dakin's solution ordered to bedside. Nursing to change dressing daily to include 4x4 moisten with dakin's, 4x4 dry, kerlix. Awaiting vascular evaluation. Deep wound culture growth (+) Pseudomonas and Staph, No growth to Right calcaneus. Continuing to follow while in house. Thank you for allowing me to participate in the care of this Patient. (2) DM type 2 (diabetes mellitus, type 2): Admission and Anticipated Discharge Date Admission Date: August 03, 2023 Subjective Patient seen and examined at beside. Patient is status post day#3 Right ankle debridement (DOS: 08/04/23). Patient resting comfortably, has no complaints. Review of Systems Review of Systems: All systems reviewed & are unremarkable except as noted in Subjective Physical Exam Constitutional: + obese, cooperative and comfortable Eyes: normal visual lee by confrontation Respiratory: normal respiratory effort Cardiovascular: Rate/Rhythm: + irregularly irregular Musculoskeletal: Extremities: extremities normal to inspection Skin: + ulcer (Right posterior ankle over Achi lles tendon), + skin atrophy and + erythema (decreasing RLE) Neurologic: moves all extremities (Decreased epicritic sensation bilateral) Psychiatric: Orientation: alert and oriented x 3 Results & Data Vital Signs (Past 12 Hours) Vital Signs Temp Pulse Pulse Resp BP BP Pulse Ox 08/06/23 11:40 36.7 C 81 18 130/79 98 08/06/23 08:12 36.7 C 72 18 149/89 H 97 08/06/23 03:52 36.5 C 74 20 131/85 94 08/06/23 02:15 60 21 90 O2 Del Method 08/06/23 11:40 Room Air 08/06/23 08:12 Room Air 08/06/23 03:52 CPAP 08/06/23 02:15 (2) DM type 2 (diabetes mellitus, type 2) Diabetes mellitus complication status: with skin complications Diabetes mellitus retirement insulin use: unspecified spindle frame carver insulin use status
[2023-08-06] MEDS ORDERED: DAKIN'S SOLN 0.125% QUARTER STRENGTH 473 ML BTL EXT SCH (12:45)
--- NOTE | 2023-08-06 16:54 | Billing Data ---
Date of Service August 06, 2023 Coding Level of Care Code 87842 SUB INP/OBS CARE MIN
[2023-08-06] MEDS: QUEtiapine FUMARATE 25 MG TABLET PO SCH (20:23)
[2023-08-07] MEDS: MAGNESIUM SULFATE / D5W 1 GM/100 ML BAG IV SCH ×2 (01:44→03:25)
[2023-08-07] MEDS: DAPTOmycin 400 MG in SYRINGE 0 ML IV SCH (01:45)
[2023-08-07] MEDS: PIPERACILLIN/TAZOBACTAM 4.5 GM in DEXTROSE 5% MINI-B 100 ML IV SCH ×3 (05:35→19:37)
[2023-08-07] MEDS: ACETAMINOPHEN 500 MG TAB PO SCH ×3 (06:32→19:39)
[2023-08-07 06:40] LABS: Basophils # (auto) 0.04 K/uL (0.00-0.20); Basophils % (auto) 0.5 %; Eosinophils # (auto) 0.33 K/uL (0.00-0.50); Hematocrit (blood only) 31.1 % (42.0-52.0); Hemoglobin 10.5 g/dl (14.0-18.0); Immature Granulocytes # (auto) 0.06 K/uL (0.01-0.20); Immature Granulocytes % (auto) 0.7 %; Lymphocytes # (auto) 1.39 K/uL (1.20-3.40); Lymphocytes % (auto) 16.9 %; Mean Corpuscular Hemoglobin 31.1 pg (25.0-34.0); Mean Corpuscular Hgb Conc 33.8 g/dL (32.0-36.0); Mean Platelet Volume 9.8 fL (9.4-12.4); Monocytes # (auto) 0.76 K/uL (0.11-0.59); Monocytes % (auto) 9.3 %; Neutrophils # (auto) 5.63 K/uL (1.40-6.50); Neutrophils % (auto) 68.6 %; Platelet Count 276 K/uL (130-400); RDW Coefficient of Variation 14.5 % (11.5-14.5); Red Blood Count 3.38 M/uL (4.70-6.10); White Blood Count 8.21 K/ul (4.8-10.8)
[2023-08-07 07:49] LABS: Albumin Globulin Ratio 1.1 (0.9-2); Albumin Level 3.5 gm/dl (3.4-5.0); BUN Creatinine Ratio 21.5 (10-20); Bilirubin,Total 0.6 mg/dl (0.2-1.0); Creatinine Clr Calc Pharmacy 96.2 ml/min; Est GFR (African American) 82.2 ml/min; Globulin 3.1 gm/dl (2.5-4.0); Magnesium 2.1 mg/dl (1.7-2.4); Potassium 4.7 mmol/L (3.5-5.1); Total Protein 6.6 gm/dl (6.0-8.3)
[2023-08-07] MEDS: ENOXAPARIN INJ 40 MG/0.4 ML SYR SQ SCH ×2 (08:12→19:38)
[2023-08-07] MEDS: CITALOPRAM 20 MG TAB PO SCH (08:12)
[2023-08-07] MEDS: PSYLLIUM or GUAR GUM FIBER POWDER PACKET PO SCH (08:12)
[2023-08-07] MEDS: carvediloL 6.25 MG TAB PO SCH ×2 (08:12→19:38)
[2023-08-07] MEDS: CEROVITE ADV FORMULA TAB PO SCH (08:12)
[2023-08-07] MEDS: PANTOprazole 40 MG TAB PO SCH (08:12)
[2023-08-07] MEDS: GABAPENTIN 300 MG CAP PO SCH ×3 (08:12→19:38)
[2023-08-07] MEDS: POLYETHYLENE (MIRALAX) 17 GM PACK PO SCH ×3 (08:13→20:10)
[2023-08-07] MEDS: oxyCODONE HCL IR 5 MG TAB (IMMEDIATE RELEASE) PO PRN ×3 (08:19→16:30)
--- NOTE | 2023-08-07 10:14 | Consultation ---
Date of Consultation August 07, 2023 Assessment & Plan (1) Peripheral arterial disease: Pt with nonhealing wound to R heel, now with significant infection(multi organism) and osteomyelitis on MRI. Pt with likely R popliteal artery occlusion. Pt discussed with Dr Correia, recommends pt undergo RLE angio with intervention on MONDAY. Procedure discussed with pt, he is agreeable. History of Present Illness Reason for Consultation: PAD, RLE osteo Attending Physician: Vannessa You MD History of Present Illness 67 yo m with hx of DMII, a fib, HTN, GERD, Gout, CHF, TOSIN, dyslipidemmia, depression, admitted with infected R heel wound, seen in consultation today for PAD. Pt states he was having some back pain about 4 months ago and went in for some injections, but the specialist noted 2 pustules on his R ankle. States he saw his PCP, who sent him to wound clinic in [facility]. Pt states the wound continued to get bigger. He saw a vascular surgeon at [facility], who attempted to perform an angio, but was unsuccessful d/t pt was poorly sedated. The vascular surgeon then suggested an angio under general, with intention to perform bypass if lesion not amenable to treatment. Pt felt that the procedure was not explained well enough to him, and he did not agree to the surgery. His PCP and family suggested he be seen at [facility], as his pain, swelling, redness was increasing. Pt admits pain in R heel, and claudication. Pt denies fever, LARSON, chest pain, SOB, abd pain, N/V, rest pain, other complaints. Pt with remote hx of R achilles tendon repair in . Arterial US demonstrates triphasic flow to pop, then monophasic flow distally. Likely pop occlusion. Allergies Allergy/AdvReac Type Severity Reaction Status Date / Time cephalexin AdvReac Severe unknown Verified 08/02/23 22:51 organ elevated enzymes Home Medications Medication Instructions Recorded Confirmed Type metformin 500 mg tablet 1,000 mg PO BID 01/10/19 08/02/23 History carvedilol 12.5 mg tablet 6.25 mg PO BID 08/02/23 08/02/23 History cholecalciferol (vitamin D3) 50 50 mcg PO DAILY 08/02/23 08/02/23 History mcg (2,000 unit) tablet (Vitamin D3) citalopram 20 mg tablet 20 mg PO DAILY 08/02/23 08/02/23 History doxycycline monohydrate 100 mg 100 mg PO DAILY 08/02/23 08/02/23 History tablet eplerenone 25 mg tablet 25 mg PO DAILY 08/02/23 08/02/23 History febuxostat 40 mg tablet 120 mg PO DAILY 08/02/23 08/02/23 History gabapentin 300 mg capsule 300 mg PO TID 08/02/23 08/02/23 History geriatric cjbqsmwa-[id number]-gupt 1 tab PO DAILY 08/02/23 08/02/23 History insulin glargine 100 unit/mL (3 30 unit subcut PM 08/02/23 08/02/23 History mL) subcutaneous pen (Basaglar KwikPen U-100 Insulin) omeprazole 40 mg capsule,delayed 40 mg PO DAILY 08/02/23 08/02/23 History release quetiapine 25 mg tablet 25 mg PO HS 08/02/23 08/02/23 History tramadol 50 mg tablet 50 mg PO Q6 PRN Pain 08/02/23 08/02/23 History warfarin 4 mg tablet (Jantoven) 4 mg PO DAILY 08/02/23 08/02/23 History Patient History Medical History Diverticular disease Sleep apnea Hyperlipidemia Congestive heart failure Atrial fibrillation Bronchitis Surgical History History of bowel resection Family History Other Congestive heart failure Social History Smoking Status: Never smoker Do You Dip or Chew Tobacco: No; Hx Alcohol Use: Yes Alcohol type: beer Hx Substance Use: No Preferred Language: Yoruba Communication Ability: Effective Mechanical Technician Required: No Beliefs That Will Affect Care: None Current Living Situation: Spouse Other Information That Helps Us Care for You: No Feels Safe at Home: Yes Safety Concerns: Feels Safe At This Time Assistive Devices: None Review of Systems Review of Systems: All systems reviewed & are unremarkable except as noted in HPI & below Physical Exam Constitutional: WD/WN, vitals as above + morbidly obese and cooperative; not in distress ENMT: Ears: no hearing impairment Neck: trachea midline Respiratory: normal respiratory effort, lungs clear to auscultation Auscultation: + diminished lung sounds Cardiovascular: Rate/Rhythm: + irregularly irregular Vessels: femoral pulses present, posterior tibial pulses present (RLE faint doppler), dorsalis pedis pulses present (RLE unable to doppler) and radial pulses present; + abnormal peripheral pulses Extremities: + abnormal capillary refill (R 5 seconds, L 3 seconds) Gastrointestinal (Abdomen): Inspection/Auscultation: abdomen normal to inspection, normal bowel sounds and + significant pannus Percussion/Palpation: abdomen soft; abdomen nontender Musculoskeletal: no cyanosis or clubbing, extremities motor strength 5/5 Extremities: + amputation noted (LLE great toe amputation) Skin: + wound (R heel wound, moderate serous d rainage.) and + erythema Neurologic: moves all extremities and awake; no focal motor deficits and not confused Psychiatric: A+Ox3, euthymic affect Results & Data Vital Signs (Past 12 Hours) Vital Signs Temp Pulse Pulse Pulse Resp BP BP 08/07/23 08:18 37.2 C 63 20 153/70 H 08/07/23 07:46 67 08/07/23 03:09 36.8 C 77 18 123/75 08/07/23 02:36 23 08/07/23 00:22 69 18 143/72 H 08/06/23 23:12 36.9 C 84 20 131/58 L 08/06/23 22:39 57 L 24 Pulse Ox O2 Del Method FiO2 08/07/23 08:18 91 Room Air 08/07/23 07:46 08/07/23 03:09 94 Room Air 08/07/23 02:36 21 08/07/23 00:22 99 CPAP 08/06/23 23:12 96 Room Air 08/06/23 22:39 98 21
--- NOTE | 2023-08-07 10:24 | Hospitalist Progress Note ---
Date of Service August 07, 2023 Assessment & Plan (1) Foot pain, right: (2) Open ankle wound: (3) Elevated troponin: (4) Hypomagnesemia: (5) Anemia: (6) HTN (hypertension): (7) Dyslipidemia: (8) DM type 2 (diabetes mellitus, type 2): (9) Atrial fibrillation: (10) Sleep apnea: (11) Congestive heart failure: (12) GERD (gastroesophageal reflux disease): (13) Depression: (14) Gout: (15) Insomnia: Plan Pt is a 67 yo male who presents to the hospital on 08/03/23 for R ankle ulcer. At this time, awaiting vascular surgery recommendations. In meantime, will continue current antibiotics. Successful bowel movement after addition of Miralax. Right ankle ulcer - XR of R ankle w/o obvious bony erosions/change concerning for osteomyelitis; Patients MRI results favored acute osteomyelitis of the calcaneus - Podiatry following: debridement on 08/03/23 Culture showing Pseudomonas and Staph not involving the calcaneus. Sensitivities pending - Doppler of the lower extremities revealed hemodynamically significant stenosis with monophasic waveforms in the calf vessels. Elevated velocities are in the mid right peroneal artery. diabetic vs poor peripheral vascularization, likely a mix of both contributing to his current condition Vascular surgery consulted: > Recommends pt undergo RLE angio with intervention on Monday. Patient in agreement. - Wound care consulted and following. - Continue Zosyn and daptomycin Constipation - On home Metamucil and scheduled Miralax TID - successful bowel movement Elevated troponin - trop elevated 107, downtrended to 99 - EKG showed no significant ST changes - likely secondary to demand from acute illness + atrial fibrillation + infection from open ankle wound Hypomagnesemia - Yesterday 1.7. Had run of asymptomatic V-Tach after midnight for 20 seconds Mg replacement ordered after this. Today 2.1 - possible cause of pt's atrial fibrillation along with acute infection - Monitor Mg Anemia -Hgb stable (10.5 today) -possibly due to chronic disease; no concern for bleeding -Monitor CBC HTN (hypertension) -Continue carvedilol, eplerenone Dyslipidemia -Pt is not on a statin despite his multiple comorbidities including DM2 w/ complication leading to PAD/PVD DM type 2 (diabetes mellitus, type 2) -DM2 w/ complications of vascular disease and now with possible osteomyelitis -Hold home metformin, was previously on Trulicity per EMR -Lantus, SSI -Continue gabapentin and Celexa for neuropathy - last HA1c 6.2% on 08/03 Atrial fibrillation - in afib on admission, rate controlled - normally anticoagulated with warfarin, INR 2.8 and therapeutic on admission -Continue carvedilol Sleep apnea -CPAP HS Congestive heart failure -CXR does not demonstrate congestion -Continue carvedilol, eplerenone -Patient was previously on Lasix but seemingly discontinued per EMR, can restart if fluid overload noted for symptom relief GERD (gastroesophageal reflux disease) -Continue omeprazole Depression -Continue Celexa Gout -Continue febuxostat Insomnia -Continue Seroquel KEVINI: DM2 Code status: Full DVT prophylaxis: Holding warfarin. On Lovenox for DVT prophylaxis. Isolation: None Unit: Medical/surgical with telemetry Disposition planning: Anticipate need for SNF Admission and Anticipated Discharge Date Admission Date: August 03, 2023 Supervising Physician Co-Signing Physician Notes Resident Physician Supervision Note: I independently interviewed and examined the patient and verified the brooks history and physical, reviewed labs and image studies and agree with resident findings and care plan. No new problems or complaints. Vitals noted, in general he is awake and alert pleasant no distress. HEENT normocephalic atraumatic mucous membranes moist. Right ankle posteriorly above the achillis tendon - 3inch long and 1.5inch wide 1inch deep ulcer with necrotic tissue and drainage with sero-sangiounous fluid. Surrounding erythema improved. Right ankle ulcer in setting of Peripheral arterial disease No osteomyelitis. Cx growing Pseudomonas/MSSA -s/p debridement by podiatry 08/04. -will d/c daptomycin. continue zosyn. -for angiogram on monday. DVT prophylaxisLovenox Otherwise as above Subjective Pt is a 67 yo male with PMHx of DM-II, HTN, HLD, CHF, PAD/PVD, pAF who presents to the hospital on 08/03/23 for R ankle ulcer. Ulcer was debrided on 08/03/23. Significant vascular disease noted on right calf. Had seen vascular surgeon (outside) and bypass was scheduled, but he preferred to have this done during this hospitalization if possible. Today, he fells well and has no concerns. He had a bowel movement yesterday after starting metamucil (uses it at home) that was normal in consistency, and was not watery or bloody. Has ambulated to the bathroom. Eating well. Denies chest pain, SOB, fevers, chills, weakness, malaise, N/V/D, or any other symptom. Review of Systems Review of Systems: As per HPI. Physical Exam Physical Exam: General: Alert. Oriented to person, time, and place. Afebrile. No acute distress. Cardiac: Regular rate and rhythm, no murmurs/rubs/gallops. Respiratory: Clear to auscultation bilaterally, no wheezes/rales/rhonchi. No increased work of breathing. Symmetrical chest rise. No respiratory distress. Abdomen: Soft, nontender, slightly distended. Bowel sounds present. Lower Extremities: Right lower extremity swelling, tight skin, slight tenderness, slight erythema, bandage covering ankle and foot clean/dry; left lower extremity swelling without tenderness or erythema Results & Data Results & Data Vital Signs (Past 12 Hours) Vital Signs Temp Pulse Pulse Pulse Resp BP BP 08/07/23 08:18 37.2 C 63 20 153/70 H 08/07/23 07:46 67 08/07/23 03:09 36.8 C 77 18 123/75 08/07/23 02:36 23 08/07/23 00:22 69 18 143/72 H 08/06/23 23:12 36.9 C 84 20 131/58 L 08/06/23 22:39 57 L 24 Pulse Ox O2 Del Method FiO2 08/07/23 08:18 91 Room Air 08/07/23 07:46 08/07/23 03:09 94 Room Air 08/07/23 02:36 21 08/07/23 00:22 99 CPAP 08/06/23 23:12 96 Room Air 08/06/23 22:39 98 21 Resident Activity Tracking Resident Involvement: Resident Care Provided Care Provided: Adult Hospital Medicine (8) DM type 2 (diabetes mellitus, type 2) Diabetes mellitus complication status: with skin complications Diabetes mellitus shelter insulin use: unspecified shelter insulin use status (9) Atrial fibrillation Atrial fibrillation type: unspecified Qualified Code(s): I48.91 - Unspecified atrial fibrillation
[2023-08-07] MEDS: QUEtiapine FUMARATE 25 MG TABLET PO SCH (19:39)
[2023-08-08] MEDS: oxyCODONE HCL IR 5 MG TAB (IMMEDIATE RELEASE) PO PRN ×4 (04:40→19:48)
[2023-08-08] MEDS: PIPERACILLIN/TAZOBACTAM 4.5 GM in DEXTROSE 5% MINI-B 100 ML IV SCH ×2 (05:21→16:16)
[2023-08-08] MEDS: ACETAMINOPHEN 500 MG TAB PO SCH ×2 (05:27→14:36)
[2023-08-08 06:23] LABS: Basophils # (auto) 0.06 K/uL (0.00-0.20); Basophils % (auto) 0.7 %; Eosinophils # (auto) 0.27 K/uL (0.00-0.50); Eosinophils % (auto) 2.9 %; Hematocrit (blood only) 31.7 % (42.0-52.0); Hemoglobin 10.3 g/dl (14.0-18.0); Immature Granulocytes # (auto) 0.08 K/uL (0.01-0.20); Immature Granulocytes % (auto) 0.9 %; Lymphocytes # (auto) 1.11 K/uL (1.20-3.40); Lymphocytes % (auto) 12.1 %; Mean Corpuscular Hemoglobin 30.7 pg (25.0-34.0); Mean Corpuscular Hgb Conc 32.5 g/dL (32.0-36.0); Mean Corpuscular Volume 94.3 fL (80.0-100.0); Mean Platelet Volume 9.8 fL (9.4-12.4); Monocytes % (auto) 9.8 %; Neutrophils # (auto) 6.75 K/uL (1.40-6.50); Neutrophils % (auto) 73.6 %; Platelet Count 271 K/uL (130-400); RDW Coefficient of Variation 14.4 % (11.5-14.5); RDW Standard Deviation 49.4 fL (36.4-46.3); Red Blood Count 3.36 M/uL (4.70-6.10); White Blood Count 9.17 K/ul (4.8-10.8)
[2023-08-08 06:34] LABS: Albumin Globulin Ratio 1.1 (0.9-2); Albumin Level 3.5 gm/dl (3.4-5.0); BUN Creatinine Ratio 22.4 (10-20); Bilirubin,Total 0.6 mg/dl (0.2-1.0); Calcium 8.9 mg/dl (8.6-10.3); Creatinine Clr Calc Pharmacy 88.1 ml/min; Est GFR (African American) 74.6 ml/min; Est GFR (Non-African American) 64.3 ml/min; Globulin 3.1 gm/dl (2.5-4.0); Potassium 4.8 mmol/L (3.5-5.1); Total Protein 6.6 gm/dl (6.0-8.3)
[2023-08-08 06:45] LABS: INR 1.3 (0.9-1.1)
--- NOTE | 2023-08-08 07:30 | XRay Report ---
XR ankle RT min 3V routine CLINICAL HISTORY: pain, popping sound COMPARISON STUDY: Right ankle 08/02/2023. FINDINGS: Soft tissue swelling within the right ankle. Moderate degenerative changes again noted. Vas cular calcifications are present. There is a 7.8 cm soft tissue ulceration within the posterior ankle , unchanged. Calcification noted within the Achilles tendon. Cortical irregularity at the posterior s uperior calcaneus at the Achilles insertion and lucency has progressed. Plantar heel spur is noted. D egenerative changes within the midfoot. IMPRESSION: 1. No fracture or dislocation within the right ankle. 2. Moderate osteoarthritis. 3. A 7.8 cm soft tissue ulceration within the posterior ankle, unchanged. There is cortical irregular ity/lucency at the posterior superior calcaneus at the Achilles insertion which has progressed. This is concerning for an osteomyelitis. ACT 112: Negative or not required by law. Electronically signed by: Jian Levy M.D. 08/08/2023 7:27 AM
[2023-08-08 07:39] LABS: Magnesium 1.8 mg/dl (1.7-2.4)
[2023-08-08] MEDS: ENOXAPARIN INJ 40 MG/0.4 ML SYR SQ SCH ×2 (08:40→20:22)
[2023-08-08] MEDS: PSYLLIUM or GUAR GUM FIBER POWDER PACKET PO SCH (08:41)
[2023-08-08] MEDS: CITALOPRAM 20 MG TAB PO SCH (08:41)
[2023-08-08] MEDS: PANTOprazole 40 MG TAB PO SCH (08:41)
[2023-08-08] MEDS: carvediloL 6.25 MG TAB PO SCH ×2 (08:41→20:20)
[2023-08-08] MEDS: GABAPENTIN 300 MG CAP PO SCH ×3 (08:41→20:22)
[2023-08-08] MEDS: POLYETHYLENE (MIRALAX) 17 GM PACK PO SCH ×3 (08:41→20:23)
[2023-08-08] MEDS: CEROVITE ADV FORMULA TAB PO SCH (08:41)
--- NOTE | 2023-08-08 10:03 | Hospitalist Progress Note ---
Date of Service August 08, 2023 Assessment & Plan (1) Foot pain, right: (2) Open ankle wound: (3) Elevated troponin: (4) Hypomagnesemia: (5) Anemia: (6) HTN (hypertension): (7) Dyslipidemia: (8) DM type 2 (diabetes mellitus, type 2): (9) Atrial fibrillation: (10) Sleep apnea: (11) Congestive heart failure: (12) GERD (gastroesophageal reflux disease): (13) Depression: (14) Gout: (15) Insomnia: Plan Pt is a 67 yo male who presents to the hospital on 08/03/23 for R ankle ulcer. At this time, awaiting vascular surgery recommendations. In meantime, will continue current antibiotics. Successful bowel movement after addition of Miralax. Peripheral Vascular Disease - Doppler of the lower extremities revealed hemodynamically significant stenosis with monophasic waveforms in the calf vessels. Elevated velocities are in the mid right peroneal artery. Vascular surgery consulted: > Recommends pt undergo RLE angio with intervention on Monday. > Lovenox does not need to be d/c before procedure Right ankle ulcer - XR of R ankle w/o obvious bony erosions/change concerning for osteomyelitis; Patients MRI results favored acute osteomyelitis of the calcaneus, but bone biopsy showing NO changes consistent with osteomyelitis - diabetic vs poor peripheral vascularization, likely a mix of both contributing to his current condition - Podiatry following: debridement on 08/03/23 Culture showing Pseudomonas and MSSA. Bone pathology not showing osteomyelitis. Sensitivities pending - Wound care consulted and following. - Change antibiotics from Zosyn to Cefepime today Right ankle "pop" - MRI of ankle on admission showing "previous Achilles repair. No full-thickness tear. Moderate Achilles tendinopathy with mild partial thickness tear of the Achilles". - No bunching of gastrocnemius or weakness with plantar flexion noted on exam, making Achilles tendon rupture unlikely. - X-Ray of ankle showing no fractures or dislocations; osteoarthritis noted. - Continue pain management and monitoring Constipation - On home Metamucil and scheduled Miralax TID - successful bowel movement Elevated troponin - trop elevated 107, downtrended to 99 - EKG showed no significant ST changes - likely secondary to demand from acute illness + atrial fibrillation + infection from open ankle wound Hypomagnesemia - Yesterday had run of asymptomatic V-Tach after midnight for 20 seconds (not recurred) Mg today 1.8 - possible cause of pt's atrial fibrillation along with acute infection - Monitor Mg Anemia -Hgb stable (10.3 today) -possibly due to chronic disease; no concern for bleeding -Monitor CBC HTN (hypertension) -Continue carvedilol, eplerenone Dyslipidemia -Pt is not on a statin despite his multiple comorbidities including DM2 w/ complication leading to PAD/PVD DM type 2 (diabetes mellitus, type 2) -DM2 w/ complications of vascular disease -Hold home metformin, was previously on Trulicity per EMR -Lantus, SSI -Continue gabapentin and Celexa for neuropathy - last HA1c 6.2% on 08/03 Atrial fibrillation - in afib on admission, rate controlled - normally anticoagulated with warfarin, INR 2.8 and therapeutic on admission -Continue carvedilol Sleep apnea -CPAP HS Congestive heart failure -CXR does not demonstrate congestion -Continue carvedilol, eplerenone -Patient was previously on Lasix but seemingly discontinued per EMR, can restart if fluid overload noted for symptom relief GERD (gastroesophageal reflux disease) -Continue omeprazole Depression -Continue Celexa Gout -Continue febuxostat Insomnia -Continue Seroquel FENGI: DM2 Code status: Full DVT prophylaxis: Holding warfarin. On Lovenox for DVT prophylaxis. Isolation: None Unit: Medical/surgical with telemetry Disposition planning: Anticipate need for SNF Admission and Anticipated Discharge Date Admission Date: August 03, 2023 Supervising Physician Co-Signing Physician Notes Resident Physician Supervision Note: I independently interviewed and examined the patient and verified the brooks history and physical, reviewed labs and image studies and agree with resident findings and care plan. Fajardo a pop on the right ankle this morning while walking upto the bathroom. No other new problems or complaints. Vitals noted, in general he is awake and alert pleasant no distress. HEENT normocephalic atraumatic mucous membranes moist. Right ankle wound dressed. Surrounding erythema improved. No deficit with foot movement. Right ankle ulcer in setting of Peripheral arterial disease No osteomyelitis. Cx growing Pseudomonas/MSSA -s/p debridement by podiatry 08/04. -continue zosyn. -for angiogram on monday. Pop sound right foot - Xray foot with no changes. Reviewed MRI foot done early on - mild Achillis tendon rupture. will review with ortho. DVT prophylaxisLovenox Otherwise as above Subjective Pt is a 67 yo male with PMHx of DM-II, HTN, HLD, CHF, PAD/PVD, pAF who presents to the hospital on 08/03/23 for R ankle ulcer. Ulcer was debrided on 08/03/23 and bone pathology NOT showing changes consistent with osteomyelitis. Today he reports having some ankle pain that increased after he was walking to the bathroom last night and he felt a "pop" and felt his ankle give out. He has been walking to and from the bathroom despite his discomfort. He also reports some increased salivation that is relieved by drinking water, and he states this is similar to what he feels when he has reflux. He denies fevers, chills, chest pain, SOB, weakness, or any other symptom. Review of Systems Review of Systems: As per HPI. Physical Exam Physical Exam: General: Alert. Oriented to person, time, and place. Afebrile. No acute distress. Cardiac: Regular rate and rhythm, no murmurs/rubs/gallops. Respiratory: Clear to auscultation bilaterally, no wheezes/rales/rhonchi. No increased work of breathing. Symmetrical chest rise. No respiratory distress. Abdomen: Soft, nontender, slightly distended. Bowel sounds present. Lower Extremities: Right lower extremity swelling, tight skin, slight tenderness, slight erythema, bandage covering ankle and foot clean/dry; left lower extremity swelling without tenderness or erythema; no bunching of gastrocnemius muscle noted on right calf Results & Data Results & Data Vital Signs (Past 12 Hours) Vital Signs Temp Pulse Pulse Resp BP BP Pulse Ox 08/08/23 07:44 36.9 C 78 18 119/54 L 96 08/08/23 07:20 73 08/08/23 03:59 37.4 C 88 20 167/94 H 95 08/08/23 02:25 25 H 08/07/23 23:32 36.4 C L 58 L 18 152/74 H 97 O2 Del Method FiO2 08/08/23 07:44 CPAP 08/08/23 07:20 08/08/23 03:59 Room Air, CPAP 08/08/23 02:25 21 08/07/23 23:32 Room Air Resident Activity Tracking Resident Involvement: Resident Care Provided Care Provided: Adult Hospital Medicine (8) DM type 2 (diabetes mellitus, type 2) Diabetes mellitus complication status: with skin complications Diabetes mellitus fdc insulin use: 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
[2023-08-08] MEDS ORDERED: CEFEPIME 2,000 MG in SYRINGE 0 ML IV SCH (12:00)
[2023-08-08] MEDS ORDERED: PIPERACILLIN/TAZOBACTAM 4.5 GM in DEXTROSE 5% MINI-B 100 ML IV ONE (15:00)
[2023-08-08] MEDS ORDERED: CARBOHYDRATES FOR HYPOGLYCEMIA PO PRN (15:15)
[2023-08-08] MEDS ORDERED: DEXTROSE 50% 50 ML SYRINGE IV PRN (15:15)
[2023-08-08] MEDS ORDERED: GLUCOSE 40% GEL 15 GM TUBE PO PRN (15:15)
[2023-08-08] MEDS ORDERED: GLUCOSE 10 TAB/TUBE PO PRN (15:15)
[2023-08-08] MEDS ORDERED: GLUCAGON FOR INJ 1 MG VIAL IM PRN (15:15)
[2023-08-08] MEDS: INSULIN ASPART PER UNIT CHARGE SC SCH ×2 (17:56→20:23)
[2023-08-08] MEDS: QUEtiapine FUMARATE 25 MG TABLET PO SCH (20:24)
[2023-08-08] MEDS ORDERED: PIPERACILLIN/TAZOBACTAM 4.5 GM in DEXTROSE 5% MINI-B 100 ML IV SCH (21:00)
[2023-08-09] MEDS: ACETAMINOPHEN 500 MG TAB PO SCH ×4 (00:04→21:11)
[2023-08-09] MEDS: PIPERACILLIN/TAZOBACTAM 4.5 GM in DEXTROSE 5% MINI-B 100 ML IV SCH ×3 (00:05→16:07)
[2023-08-09 06:33] LABS: Basophils # (auto) 0.05 K/uL (0.00-0.20); Basophils % (auto) 0.6 %; Eosinophils % (auto) 5.2 %; Hemoglobin 10.2 g/dl (14.0-18.0); Immature Granulocytes # (auto) 0.08 K/uL (0.01-0.20); Lymphocytes # (auto) 1.64 K/uL (1.20-3.40); Lymphocytes % (auto) 21.3 %; Mean Corpuscular Hemoglobin 30.6 pg (25.0-34.0); Mean Corpuscular Hgb Conc 32.9 g/dL (32.0-36.0); Mean Corpuscular Volume 93.1 fL (80.0-100.0); Mean Platelet Volume 9.9 fL (9.4-12.4); Monocytes # (auto) 0.77 K/uL (0.11-0.59); Neutrophils # (auto) 4.77 K/uL (1.40-6.50); Neutrophils % (auto) 61.9 %; Platelet Count 261 K/uL (130-400); RDW Coefficient of Variation 14.6 % (11.5-14.5); RDW Standard Deviation 49.1 fL (36.4-46.3); Red Blood Count 3.33 M/uL (4.70-6.10); White Blood Count 7.71 K/ul (4.8-10.8)
[2023-08-09 06:46] LABS: Albumin Globulin Ratio 1.2 (0.9-2); Albumin Level 3.6 gm/dl (3.4-5.0); BUN Creatinine Ratio 23.3 (10-20); Bilirubin,Total 0.6 mg/dl (0.2-1.0); Calcium 8.9 mg/dl (8.6-10.3); Creatinine Clr Calc Pharmacy 88.6 ml/min; Est GFR (African American) 74.6 ml/min; Est GFR (Non-African American) 64.3 ml/min; Globulin 3.1 gm/dl (2.5-4.0); Magnesium 1.9 mg/dl (1.7-2.4); Potassium 4.3 mmol/L (3.5-5.1); Total Protein 6.7 gm/dl (6.0-8.3)
[2023-08-09] MEDS: carvediloL 6.25 MG TAB PO SCH ×2 (08:41→21:10)
[2023-08-09] MEDS: CITALOPRAM 20 MG TAB PO SCH (08:42)
[2023-08-09] MEDS: CEROVITE ADV FORMULA TAB PO SCH (08:42)
[2023-08-09] MEDS: GABAPENTIN 300 MG CAP PO SCH ×3 (08:42→21:10)
[2023-08-09] MEDS: PANTOprazole 40 MG TAB PO SCH (08:42)
[2023-08-09] MEDS: PSYLLIUM or GUAR GUM FIBER POWDER PACKET PO SCH ×2 (08:42→08:49)
[2023-08-09] MEDS: ENOXAPARIN INJ 40 MG/0.4 ML SYR SQ SCH ×2 (08:43→21:10)
[2023-08-09] MEDS: POLYETHYLENE (MIRALAX) 17 GM PACK PO SCH ×4 (08:44→21:11)
[2023-08-09] MEDS: oxyCODONE HCL IR 5 MG TAB (IMMEDIATE RELEASE) PO PRN ×2 (08:47→22:25)
[2023-08-09] MEDS: INSULIN ASPART PER UNIT CHARGE SC SCH ×4 (09:02→21:19)
--- NOTE | 2023-08-09 09:30 | History & Physical Bridge Note ---
Date of Service August 09, 2023 History & Physical Bridge Note Patient for a right lower extremity arteriogram with possible intervention today. I have discussed the risks options and benefits of the procedure with the patient. The patient understands the risks options and benefits and agrees to the procedure. I have examined the patient, reviewed the History & Physical and in the interval since the performance of the History & Physical I have noted the following changes of clinical significance: no changes noted
--- NOTE | 2023-08-09 10:37 | Hospitalist Progress Note ---
Date of Service August 09, 2023 Assessment & Plan (1) Foot pain, right: (2) Open ankle wound: (3) Elevated troponin: (4) Hypomagnesemia: (5) Anemia: (6) HTN (hypertension): (7) Dyslipidemia: (8) DM type 2 (diabetes mellitus, type 2): (9) Atrial fibrillation: (10) Sleep apnea: (11) Congestive heart failure: (12) GERD (gastroesophageal reflux disease): (13) Depression: (14) Gout: (15) Insomnia: Plan Pt is a 67 yo male who presents to the hospital on 08/03/23 for R ankle ulcer. Patient to undergo angiography today. Peripheral Vascular Disease - Doppler of the lower extremities revealed hemodynamically significant stenosis with monophasic waveforms in the calf vessels. Elevated velocities are in the mid right peroneal artery. Vascular surgery consulted: > Pt undergo RLE angio with intervention today. Right ankle ulcer - XR of R ankle w/o obvious bony erosions/change concerning for osteomyelitis; Patients MRI results favored acute osteomyelitis of the calcaneus, but bone biopsy showing NO changes consistent with osteomyelitis - diabetic vs poor peripheral vascularization, likely a mix of both contributing to his current condition - Podiatry following: debridement on 08/03/23 Culture showing Pseudomonas and MSSA and Bactereoides Bone pathology not showing osteomyelitis. Sensitivities pending - Wound care consulted and following. - Continue Zosyn Right ankle "pop" - MRI of ankle on admission showing "previous Achilles repair. No full-thickness tear. Moderate Achilles tendinopathy with mild partial thickness tear of the Achilles". - No bunching of gastrocnemius or weakness with plantar flexion noted on exam, making Achilles tendon rupture unlikely. - X-Ray of ankle showing no fractures or dislocations; osteoarthritis noted. - Continue pain management and monitoring Constipation - On home Metamucil and scheduled Miralax TID - successful bowel movement Elevated troponin - trop elevated 107, downtrended to 99 - EKG showed no significant ST changes - likely secondary to demand from acute illness + atrial fibrillation + infection from open ankle wound Hypomagnesemia - Had run of asymptomatic V-Tach after midnight for 20 seconds (not recurred) Mg today 1.9 - possible cause of pt's atrial fibrillation along with acute infection - Monitor Mg Anemia -Hgb stable (10.3 today) -possibly due to chronic disease; no concern for bleeding -Monitor CBC HTN (hypertension) -Continue carvedilol, eplerenone Dyslipidemia -Pt is not on a statin despite his multiple comorbidities including DM2 w/ complication leading to PAD/PVD DM type 2 (diabetes mellitus, type 2) -DM2 w/ complications of vascular disease -Hold home metformin, was previously on Trulicity per EMR -Lantus, SSI -Continue gabapentin and Celexa for neuropathy - last HA1c 6.2% on 08/03 Atrial fibrillation - in afib on admission, rate controlled - normally anticoagulated with warfarin, INR 2.8 and therapeutic on admission -Continue carvedilol Sleep apnea -CPAP HS Congestive heart failure -CXR does not demonstrate congestion -Continue carvedilol, eplerenone -Patient was previously on Lasix but seemingly discontinued per EMR, can restart if fluid overload noted for symptom relief GERD (gastroesophageal reflux disease) -Continue omeprazole Depression -Continue Celexa Gout -Continue febuxostat Insomnia -Continue Seroquel FENGI: DM2 Code status: Full DVT prophylaxis: Holding warfarin. On Lovenox for DVT prophylaxis. Isolation: None Unit: Medical/surgical with telemetry Disposition planning: Anticipate need for SNF Admission and Anticipated Discharge Date Admission Date: August 03, 2023 Supervising Physician Co-Signing Physician Notes Resident Physician Supervision Note: I independently interviewed and examined the patient and verified the brooks history and physical, reviewed labs and image studies and agree with resident findings and care plan. No other new problems or complaints. Vitals noted, in general he is awake and alert pleasant no distress. HEENT normocephalic atraumatic mucous membranes moist. Right ankle wound dressed. Surrounding erythema improved. No deficit with foot movement. Right ankle ulcer in setting of Peripheral arterial disease No osteomyelitis. Cx grew Pseudomonas/MSSA -s/p debridement by podiatry 08/04. -continue zosyn. -Angiogram 08/09 with no flow limiting blockage. DVT prophylaxisLovenox Otherwise as above Subjective Pt is a 67 yo male with PMHx of DM-II, HTN, HLD, CHF, PAD/PVD, pAF who presents to the hospital on 08/03/23 for R ankle ulcer. Ulcer was debrided on 08/03/23 and bone pathology NOT showing changes consistent with osteomyelitis. Today he reports feeling well, but still has persistent right ankle pain especially when walking. Currently ambulating with a walker after feeling his right ankle "pop". He denies fevers, chills, chest pain, SOB, weakness, or any other symptom. Review of Systems Review of Systems: As per HPI. Physical Exam Physical Exam: General: Alert. Oriented to person, time, and place. Afebrile. No acute dis tress. Cardiac: Regular rate and rhythm, no murmurs/rubs/gallops. Respiratory: Clear to auscultation bilaterally, no wheezes/rales/rhonchi. No increased work of breathing. Symmetrical chest rise. No respiratory distress. Abdomen: Soft, nontender, slightly distended. Bowel sounds present. Lower Extremities: Right lower extremity swelling, bandage covering ankle and foot clean/dry; left lower extremity swelling without tenderness or erythema, left fist metatarsal amputated. Results & Data Results & Data Vital Signs (Past 12 Hours) Vital Signs Temp Pulse Pulse Resp BP BP Pulse Ox 08/09/23 07:59 36.4 C L 63 18 167/83 H 96 08/09/23 07:13 71 08/09/23 04:43 22 08/09/23 03:10 36.4 C L 64 20 154/56 H 98 08/08/23 23:05 36.7 C 56 L 18 147/68 H 98 O2 Del Method FiO2 08/09/23 07:59 Room Air 08/09/23 07:13 08/09/23 04:43 21 08/09/23 03:10 Room Air, CPAP 08/08/23 23:05 Room Air Resident Activity Tracking Resident Involvement: Resident Care Provided Care Provided: Adult Hospital Medicine (8) DM type 2 (diabetes mellitus, type 2) Diabetes mellitus complication status: with skin complications 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
[2023-08-09] MEDS ORDERED: SODIUM CHLORIDE 0.9% 1,000 ML IV SCH ×2 (12:00→15:15)
[2023-08-09] MEDS ORDERED: LIDOCAINE 1% LOCAL 20 ML VIAL ONE (12:47)
[2023-08-09] MEDS ORDERED: CLINDAMYCIN/D5W 900 MG/50 ML BAG IV SCH (13:00)
[2023-08-09] MEDS ORDERED: fentaNYL citrate PF 100 MCG/2 ML VIAL ONE ×3 (13:12→14:38)
[2023-08-09] MEDS ORDERED: MIDAZOLAM HCL 1 MG/ML 2ML VIAL ONE ×3 (13:12→14:38)
--- NOTE | 2023-08-09 13:12 | Pre Anesthesia Assessment ---
Date of Service August 09, 2023 Pre Sedation Assessment Vital Signs Temp Pulse Pulse Resp BP BP Pulse Ox 08/09/23 12:31 36.9 C 75 18 166/89 H 96 08/09/23 11:24 36.6 C 77 18 152/81 H 96 08/09/23 08:45 08/09/23 07:59 36.4 C L 63 18 167/83 H 96 08/09/23 07:13 71 08/09/23 04:43 22 08/09/23 03:10 36.4 C L 64 20 154/56 H 98 08/08/23 23:05 36.7 C 56 L 18 147/68 H 98 08/08/23 22:00 82 08/08/23 21:30 08/08/23 20:40 69 24 95 08/08/23 19:54 36.7 C 69 18 128/73 95 08/08/23 16:37 64 08/08/23 15:47 36.8 C 84 16 144/81 H 98 O2 Del Method FiO2 08/09/23 12:31 Room Air 08/09/23 11:24 Room Air 08/09/23 08:45 Room Air 08/09/23 07:59 Room Air 08/09/23 07:13 08/09/23 04:43 21 08/09/23 03:10 Room Air, CPAP 08/08/23 23:05 Room Air 08/08/23 22:00 08/08/23 21:30 Room Air 08/08/23 20:40 21 08/08/23 19:54 Room Air 08/08/23 16:37 08/08/23 15:47 Room Air Cardiovascular RRR, no murmur, no edema Respiratory normal respiratory effort, lungs clear to auscultation Pre-Sedation Airway Assessment Smoking Status: Never smoker Hx Sleep Apnea: No Short, Thick Neck: Yes Thyromental Distance: > or= 3.5 Finger Breadths Oral Cavity: + WNL Mallampati Class: III ASA: ASA3 NPO Status Date of Last Intake of Fluids: 08/08/23 Time of Last Intake of Fluids: 22:00 Date of Last Intake of Solid Food: 08/08/23 Time of Last Intake of Solid Foods: 21:00 Procedure Planning Contraindications for Sedation: none Current Medications Reviewed: No Notes The planned sedation has been discussed with the patient. Informed Consent was obtained. I have identified the patient, determined the appropriateness of sedation and have assessed the patient immediately prior to the procedure. All medicine(s) and interventions are by my order.
[2023-08-09] MEDS ORDERED: HEPARIN SOD (PORCINE) 1000 UNIT/ML ONE (13:23)
[2023-08-09] MEDS ORDERED: VISIPAQUE IV PRN (15:02)
--- NOTE | 2023-08-09 15:06 | Post Operative Brief Note ---
Immediate Post Op Note v1 Date of Surgery August 09, 2023 Pre & Post Diagnosis Operation Date: 08/09/23 13:50 Pre-Op Diagnosis: Heel Ulcer nonhealing Post-Op Diagnosis: Heel Ulcer nonhealing I identified the patient and participated in the time-out.: Yes Procedure Operation Date: 08/09/23 13:50 Actual Procedures p Right Lower Extremity Angiogram, Ultrasound Localization of the Left Femoral Artery, Moderate Sedation 13:25-1520(Left) - Francis Correia MD Surgeon Francis Correia MD Wet Pan Operator Robel. Estimated Blood Loss 10 Findings Consistent with Post-Op Diagnosis Specimens Bone calcaneus right - pathology, microbiology Deep wound culture Right ankle Anesthesia Type RN Sedation Complications none Disposition Disposition: Recovery Room
--- NOTE | 2023-08-09 15:20 | Operative Report ---
Post Operative Report Pre & Post Diagnosis Operation Date: 08/09/23 13:50 Pre-Op Diagnosis: Right heel ulcer Peripheral arterial disease Post-Op Diagnosis: Right heel ulcer Peripheral arterial disease I identified the patient and participated in the time-out.: Yes Procedure Operation Date: 08/09/23 13:50 Actual Procedures p Right Lower Extremity Angiogram, Ultrasound Localization of the Left Femoral Artery, Moderate Sedation 13:25-15:20(Left) - Francis Corriea MD Surgeon Francis Correia MD Student Affairs Vice President Manisha Celis MD Estimated Blood Loss 10 Findings See Below Right lower extremity with anterior tibial (AT) and peroneal arteries as the main runoff to the foot. No visualized areas of flow-limiting stenosis proximal to the tibial vessels. There was some stenosis of the anterior tibial (AT) artery at the level of the ankle that did not appear flow limiting, with distal flow visualized past it. There were collaterals filling the posterior tibial (PT) artery but no direct inflow from PT visualized. Fluids 500cc crystalloid Specimens None Drains None Anesthesia Type RN Sedation Complications None immediately evident Disposition Accompanied Patient To Recovery: Yes Indications Mr Weir is a 67 year old male with a nonhealing wound of his right heel, now with significant multi-organism infection and osteomyelitis on MRI. There was concern that patient had a right popliteal artery occlusion on preoperative workup. He was consented to undergo a right lower extremity angiogram with possible intervention. Risks and benefits of the procedure were discussed with the patient and he was agreeable to proceed. Description of Procedure The patient was brought to the operating room and placed in supine position. The abdomen and lower extremities were prepped and draped in sterile fashion. The left common femoral artery was punctured percutaneously under direct ultrasound visualization. The needle clotted off before we could pass a wire through it. We were then able to successfully obtain percutaneous access and a 5F sheath was introduced using a modified Seldinger technique. A #11 blade was used to make a skin al over the needle access site. A rim catheter was then used to go up and over the aortic bifurcation with a floppy angled Glidewire. The rim catheter was exchanged for an 0.035" Quick Cross catheter. We did note that the patient formed clot easily as the catheters were being exchanged. We gave 3,000 units of IV heparin. A selective right lower extremity angiogram was performed. There were no areas of flow-limiting stenosis visualized in the iliac and femoral arteries. The Quick Cross catheter was advanced over the angled Glidewire down to the superficial femoral artery. We then performed a diagnostic angiogram of the right lower extremity down to the foot. The right anterior tibial (AT) and peroneal arteries were the main runoff to the foot. AT had some disease at the level of the ankle but it did not appear flow limiting and there was continued flow throughout to the foot. The flow from both AT and peroneal arteries was brisk. The posterior tibial (PT) artery had minimal flow through collaterals but there was no direct inflow visualized. There was heavy calcification of the entire iliac, femoral, and popliteal vessels but no areas of flow-limiting stenosis proximal to the tibial vessels. The catheter was removed. The sheath on the left common femoral artery did not have blood return. We introduced a floppy Glidewire again up to the aorta under fluoroscopic visualization. We exchanged our 5F sheath for another 5F sheath. We now had return of blood from the sheath and it flushed easily. We performed a left pelvic angiogram to ensure that there were no complications with our access site. The 5F sheath was removed and a 6F StarClose closure device sheath was introduced. After the StarClose was deployed and the device removed, the patient was noted to have significant bleeding from the puncture site. We opted to instead hold manual pressure. There was no hematoma on the left groin at the end of the procedure. He had bilateral AT signals and a right peroneal signal at the end of the case, unchanged from pre- operative evaluation. Patient tolerated the procedure well and was taken back to his room in stable condition. All counts were correct at the end of the case. Fluoroscopy time was 25 minutes, radiation dose was 1859 mGy and contrast dose was 65cc. Dr. Correia was present and participated in all critical aspects of the procedure. I attest to the content of the Intraoperative Record and any orders documented therein. Any exceptions are noted below.
--- NOTE | 2023-08-09 15:20 | Post Anesthesia Assessment ---
Date of Service August 09, 2023 Post Sedation Assessment Vital Signs Temp Pulse Pulse Resp BP BP Pulse Ox 08/09/23 15:15 62 18 142/88 H 99 08/09/23 15:10 62 18 143/87 H 99 08/09/23 15:05 74 18 126/80 99 08/09/23 15:00 60 18 127/80 99 08/09/23 14:55 70 18 136/87 99 08/09/23 14:50 70 18 131/77 99 08/09/23 14:45 68 18 132/86 99 08/09/23 14:40 68 18 144/75 H 99 08/09/23 14:35 64 18 148/84 H 99 08/09/23 14:30 64 18 136/84 99 08/09/23 14:25 64 18 137/90 99 08/09/23 14:20 64 18 149/85 H 99 08/09/23 14:15 64 18 164/100 H 99 08/09/23 14:10 64 18 143/90 H 99 08/09/23 14:05 64 18 140/90 99 08/09/23 14:00 64 18 130/92 99 08/09/23 13:55 70 18 137/90 99 08/09/23 13:50 62 18 127/80 99 08/09/23 13:45 62 18 120/90 99 08/09/23 13:40 64 18 140/84 99 08/09/23 13:35 64 18 110/88 99 08/09/23 13:30 70 18 130/98 99 08/09/23 13:25 62 18 138/88 99 08/09/23 13:20 62 18 145/88 H 99 08/09/23 12:31 36.9 C 75 18 166/89 H 96 08/09/23 11:24 36.6 C 77 18 152/81 H 96 08/09/23 08:45 08/09/23 07:59 36.4 C L 63 18 167/83 H 96 08/09/23 07:13 71 08/09/23 04:43 22 08/09/23 03:10 36.4 C L 64 20 154/56 H 98 08/08/23 23:05 36.7 C 56 L 18 147/68 H 98 08/08/23 22:00 82 08/08/23 21:30 08/08/23 20:40 69 24 95 08/08/23 19:54 36.7 C 69 18 128/73 95 08/08/23 16:37 64 08/08/23 15:47 36.8 C 84 16 144/81 H 98 O2 Del Method O2 Flow Rate FiO2 08/09/23 15:15 Oxymask 4 08/09/23 15:10 Oxymask 4 08/09/23 15:05 Oxymask 4 08/09/23 15:00 Oxymask 6 08/09/23 14:55 Oxymask 6 08/09/23 14:50 Oxymask 6 08/09/23 14:45 Oxymask 6 08/09/23 14:40 Oxymask 6 08/09/23 14:35 Oxymask 6 08/09/23 14:30 Oxymask 6 08/09/23 14:25 Oxymask 6 08/09/23 14:20 Oxymask 6 08/09/23 14:15 Oxymask 6 08/09/23 14:10 Oxymask 6 08/09/23 14:05 Oxymask 6 08/09/23 14:00 Oxymask 6 08/09/23 13:55 Oxymask 6 08/09/23 13:50 Oxymask 6 08/09/23 13:45 Oxymask 6 08/09/23 13:40 Oxymask 6 08/09/23 13:35 Oxymask 6 08/09/23 13:30 Oxymask 6 08/09/23 13:25 Oxymask 6 08/09/23 13:20 Oxymask 6 08/09/23 12:31 Room Air 08/09/23 11:24 Room Air 08/09/23 08:45 Room Air 08/09/23 07:59 Room Air 08/09/23 07:13 08/09/23 04:43 21 08/09/23 03:10 Room Air, CPAP 08/08/23 23:05 Room Air 08/08/23 22:00 08/08/23 21:30 Room Air 08/08/23 20:40 21 08/08/23 19:54 Room Air 08/08/23 16:37 08/08/23 15:47 Room Air Recovery Score Activity: Moves 4 extremities Respiration: Deep Breath/Cough Circulation: +/-20% PreAnes Value Consciousness: Arouseable (by name) Oxygen Saturation: > 92% On Room Air Post Anesthesia Score: 9 Discharge Sedation Level of Care: Fast Track Phase II Post Sedation Plan On clinical assessment, the patient appears to have tolerated the sedation without complications. Patient is recovering as anticipated. Patient will continue to be monitored by nursing and may be discharged when sedation discharge criteria are met per below protocol. Upon Completions of procedure up to 15 minutes continue every 5 minute vital signs and the P.A.R. score; then discharge to a Phase I or Fast Track to Phase II per the following guidelines: * Discharge Patient to appropriate Phase II area if PAR is 8 or greater or return to pre- procedure baseline. The post - procedure orders will be as directed. * If PAR score is less than 8 or not return to pre-procedure baseline then patient will follow Phase I monitoring till PAR is reached for Phase II. The Phase I may be done in procedure room or may call to secure a Phase I area. * If naloxone or flumazenil are used for reversal, hold in Phase I for continued monitoring from when last reversal dose was given for a minimum of 60 minutes or longer pending the nurse and/or physician discretion of patient condition before discharge to Phase II. Please call the Sedation Physician to re-evaluate and complete post-note for discharge to Phase II area. Do NOT discharge from procedure sedation or Phase 1 until post- sedation evaluation note is complete by procedure /sedation MD Sedation Discharge Instructions to be given to the patient at discharge to home.
[2023-08-09] MEDS: QUEtiapine FUMARATE 25 MG TABLET PO SCH (21:11)
[2023-08-10] MEDS: PIPERACILLIN/TAZOBACTAM 4.5 GM in DEXTROSE 5% MINI-B 100 ML IV SCH ×3 (00:25→16:23)
[2023-08-10] MEDS: ACETAMINOPHEN 500 MG TAB PO SCH ×3 (05:46→23:31)
[2023-08-10 07:34] LABS: Basophils # (auto) 0.05 K/uL (0.00-0.20); Basophils % (auto) 0.7 %; Eosinophils # (auto) 0.42 K/uL (0.00-0.50); Eosinophils % (auto) 5.9 %; Hematocrit (blood only) 30.5 % (42.0-52.0); Hemoglobin 9.9 g/dl (14.0-18.0); Immature Granulocytes # (auto) 0.07 K/uL (0.01-0.20); Lymphocytes # (auto) 1.54 K/uL (1.20-3.40); Lymphocytes % (auto) 21.8 %; Mean Corpuscular Hemoglobin 30.8 pg (25.0-34.0); Mean Corpuscular Hgb Conc 32.5 g/dL (32.0-36.0); Monocytes # (auto) 0.75 K/uL (0.11-0.59); Monocytes % (auto) 10.6 %; Neutrophils # (auto) 4.24 K/uL (1.40-6.50); Platelet Count 250 K/uL (130-400); RDW Coefficient of Variation 14.6 % (11.5-14.5); RDW Standard Deviation 50.4 fL (36.4-46.3); Red Blood Count 3.21 M/uL (4.70-6.10); White Blood Count 7.07 K/ul (4.8-10.8)
[2023-08-10 07:48] LABS: Albumin Globulin Ratio 1.1 (0.9-2); Albumin Level 3.3 gm/dl (3.4-5.0); BUN Creatinine Ratio 22.7 (10-20); Bilirubin,Total 0.5 mg/dl (0.2-1.0); Calcium 8.8 mg/dl (8.6-10.3); Creatinine Clr Calc Pharmacy 105.8 ml/min; Est GFR (African American) 92.6 ml/min; Est GFR (Non-African American) 79.9 ml/min; Globulin 2.9 gm/dl (2.5-4.0); Magnesium 1.8 mg/dl (1.7-2.4); Potassium 4.3 mmol/L (3.5-5.1); Total Protein 6.2 gm/dl (6.0-8.3)
[2023-08-10] MEDS: POLYETHYLENE (MIRALAX) 17 GM PACK PO SCH ×3 (08:44→20:53)
[2023-08-10] MEDS: carvediloL 6.25 MG TAB PO SCH ×2 (08:44→20:48)
[2023-08-10] MEDS: PSYLLIUM or GUAR GUM FIBER POWDER PACKET PO SCH (08:44)
[2023-08-10] MEDS: GABAPENTIN 300 MG CAP PO SCH ×3 (08:44→20:48)
[2023-08-10] MEDS: PANTOprazole 40 MG TAB PO SCH (08:44)
[2023-08-10] MEDS: ENOXAPARIN INJ 40 MG/0.4 ML SYR SQ SCH (08:45)
[2023-08-10] MEDS: CEROVITE ADV FORMULA TAB PO SCH (08:45)
[2023-08-10] MEDS: CITALOPRAM 20 MG TAB PO SCH (08:45)
[2023-08-10] MEDS: INSULIN ASPART PER UNIT CHARGE SC SCH ×4 (08:51→20:54)
[2023-08-10] MEDS: oxyCODONE HCL IR 5 MG TAB (IMMEDIATE RELEASE) PO PRN ×2 (09:43→16:22)
--- NOTE | 2023-08-10 15:28 | Hospitalist Progress Note ---
Date of Service August 10, 2023 Assessment & Plan (1) Foot pain, right: (2) Open ankle wound: (3) Elevated troponin: (4) Hypomagnesemia: (5) Anemia: (6) HTN (hypertension): (7) Dyslipidemia: (8) DM type 2 (diabetes mellitus, type 2): (9) Atrial fibrillation: (10) Sleep apnea: (11) Congestive heart failure: (12) GERD (gastroesophageal reflux disease): (13) Depression: (14) Gout: (15) Insomnia: Plan Pt is a 67 yo male who presents to the hospital on 08/03/23 for R ankle ulcer. Pending PT/OT evaluation. Peripheral Vascular Disease - Doppler of the lower extremities revealed hemodynamically significant stenosis with monophasic waveforms in the calf vessels. Elevated velocities are in the mid right peroneal artery. Vascular surgery consulted: > RLE angio with no significant flow obstruction. Atrial fibrillation - in afib on admission, rate controlled -Continue carvedilol - normally anticoagulated with warfarin, INR 2.8 and therapeutic on admission - Last INR 1.3 (08/08/23) - Will restart Warfarin on 8mg today, then advise patient to resume his usual home dose (4mg) after discharge. Monitor CBC PT/INR Right ankle ulcer - XR of R ankle w/o obvious bony erosions/change concerning for osteomyelitis; Patients MRI results favored acute osteomyelitis of the calcaneus, but bone biopsy showing NO changes consistent with osteomyelitis - diabetic vs poor peripheral vascularization, likely a mix of both contributing to his current condition - Podiatry following: debridement on 08/03/23 Culture showing Pseudomonas and MSSA and Bactereoides Bone pathology not showing osteomyelitis. Sensitivities pending Dh from podiatry standpoint. Outpatient f/u after discharge. - Wound care consulted and following. Consider Home Health for continued wound care after discharge - Continue Zosyn Consider dh with Ciprofloxacin for 3 more days to complete 10 days of therapy. Right ankle "pop" - MRI of ankle on admission showing "previous Achilles repair. No full-thickness tear. Moderate Achilles tendinopathy with mild partial thickness tear of the Achilles". - No bunching of gastrocnemius or weakness with plantar flexion noted on exam, making Achilles tendon rupture unlikely. - X-Ray of ankle showing no fractures or dislocations; osteoarthritis noted. - Continue pain management and monitoring Constipation - Resolved - On home Metamucil and scheduled Miralax TID Elevated troponin - trop elevated 107, downtrended to 99 - EKG showed no significant ST changes - likely secondary to demand from acute illness + atrial fibrillation + infection from open ankle wound Hypomagnesemia - Had run of asymptomatic V-Tach after midnight for 20 seconds (not recurred) Mg today 1.8 - possible cause of pt's atrial fibrillation along with acute infection - Monitor Mg Anemia -Hgb stable (10.3 today) -possibly due to chronic disease; no concern for bleeding -Monitor CBC HTN (hypertension) -Continue carvedilol, eplerenone Dyslipidemia -Pt is not on a statin despite his multiple comorbidities including DM2 w/ complication leading to PAD/PVD DM type 2 (diabetes mellitus, type 2) -DM2 w/ complications of vascular disease -Hold home metformin, was previously on Trulicity per EMR -Lantus, SSI -Continue gabapentin and Celexa for neuropathy - last HA1c 6.2% on 08/03 Sleep apnea -CPAP HS Congestive heart failure -CXR does not demonstrate congestion -Continue carvedilol, eplerenone -Patient was previously on Lasix but seemingly discontinued per EMR, can restart if fluid overload noted for symptom relief GERD (gastroesophageal reflux disease) -Continue omeprazole Depression -Continue Celexa Gout -Continue febuxostat Insomnia -Continue Seroquel FENGI: DM2 Code status: Full DVT prophylaxis: Restart Warfarin today. Isolation: None Unit: Medical/surgical with telemetry Disposition planning: Anticipate need for SNF Admission and Anticipated Discharge Date Admission Date: August 03, 2023 Supervising Physician Co-Signing Physician Notes Resident Physician Supervision Note: I independently interviewed and examined the patient and verified the brooks history and physical, reviewed labs and image studies and agree with resident findings and care plan. No new problems or complaints. Vitals noted, in general he is awake and alert pleasant no distress. HEENT normocephalic atraumatic mucous membranes moist. Right ankle wound dressed. Surrounding erythema improved. No deficit with foot movement. Right ankle ulcer in setting of Peripheral arterial disease No osteomyelitis. Cx grew Pseudomonas/MSSA -s/p debridement by podiatry 08/04. -continue zosyn. -Angiogram 08/09 with no flow limiting blockage. A fib -resume warfarin 08/10. follow INR. Anticipate d/c with home health in am and outpatient podiatry follow up. DVT prophylaxiswarfarin resumed 08/10. Otherwise as above Subjective Pt is a 67 yo male with PMHx of DM-II, HTN, HLD, CHF, PAD/PVD, pAF who presents to the hospital on 08/03/23 for R ankle ulcer. Ulcer was debrided on 08/03/23 and bone pathology NOT showing changes consistent with osteomyelitis. Today he reports feeling well, and was found sitting on the side of his bed eating. He refers feeling well and has no new concerns. He denies fevers, chills, chest pain, SOB, weakness, or any other symptom. Review of Systems Review of Systems: As per HPI. Physical Exam Physical Exam: General: Alert. Oriented to person, time, and place. Afebrile. No acute distress. Cardiac: Regular rate and rhythm, no murmurs/rubs/gallops. Respiratory: Clear to auscultation bilaterally, no wheezes/rales/rhonchi. No increased work of breathing. Symmetrical chest rise. No respiratory distress. Abdomen: Soft, nontender, slightly distended. Bowel sounds present. Lower Extremities: Right lower extremity swelling, bandage covering ankle and foot clean/dry; left lower extremity swelling without tenderness or erythema, le ft fist metatarsal amputated. Results & Data Results & Data Vital Signs (Past 12 Hours) Vital Signs Temp Pulse Pulse Resp BP Pulse Ox O2 Del Method 08/10/23 12:18 36.6 C 79 18 148/79 H 97 Room Air 08/10/23 11:00 Room Air 08/10/23 10:44 75 08/10/23 07:30 71 08/10/23 07:14 36.5 C 73 18 137/81 97 CPAP 08/10/23 04:00 36.8 C 82 18 119/74 98 Room Air Resident Activity Tracking Resident Involvement: Resident Care Provided Care Provided: Adult Hospital Medicine (8) DM type 2 (diabetes mellitus, type 2) Diabetes mellitus complication status: with skin complications Diabetes mellitus snf insulin use: unspecified snf insulin use status (9) Atrial fibrillation Atrial fibrillation type: unspecified Qualified Code(s): I48.91 - Unspecified atrial fibrillation
[2023-08-10] MEDS ORDERED: WARFARIN SOD 4 MG TAB PO SCH (16:00)
[2023-08-10] MEDS: QUEtiapine FUMARATE 25 MG TABLET PO SCH (20:48)
--- NOTE | 2023-08-10 21:51 | Orthopedic Progress Note ---
Date of Service August 10, 2023 Assessment & Plan (1) Open ankle wound: Plan: Patient seen, evaluated, and treated. Patient is status post day#6 Right ankle debridement (DOS: 08/04/23) Patient scheduled for debridement and application of wound vac to right ankle 08/11/23 at 3pm. Thank you for allowing me to participate in the care of this Patient. (2) DM type 2 (diabetes mellitus, type 2): Admission and Anticipated Discharge Date Admission Date: August 03, 2023 Subjective Patient seen at bedside this evening for Right ankle ulcer. Patient status post ulcer debridement on 08/04/23. He was seen by vascular yesterday for PAD Physical Exam Constitutional: + obese, cooperative and comfortable Eyes: normal visual lee by confrontation Respiratory: normal respiratory effort Cardiovascular: Rate/Rhythm: + irregularly irregular Musculoskeletal: Extremities: extremities normal to inspection Skin: + ulcer (Right posterior ankle over Achi lles tendon), + skin atrophy and + erythema (decreasing RLE) Neurologic: moves all extremities (Decreased epicritic sensation bilateral) Psychiatric: Orientation: alert and oriented x 3 Results & Data Vital Signs (Past 12 Hours) Vital Signs Temp Pulse Pulse Resp BP BP Pulse Ox 08/10/23 20:46 62 10 L 98 08/10/23 19:30 36.6 C 45 L 18 165/61 H 98 08/10/23 15:53 36.7 C 55 L 16 122/78 96 08/10/23 12:18 36.6 C 79 18 148/79 H 97 08/10/23 11:00 08/10/23 10:44 75 O2 Del Method FiO2 08/10/23 20:46 21 08/10/23 19:30 Room Air 08/10/23 15:53 Room Air 08/10/23 12:18 Room Air 08/10/23 11:00 Room Air 08/10/23 10:44 (2) DM type 2 (diabetes mellitus, type 2) Diabetes mellitus complication status: with skin complications Diabetes robyn litus custodial insulin use: unspecified termite inspector insulin use status
[2023-08-11] MEDS: PIPERACILLIN/TAZOBACTAM 4.5 GM in DEXTROSE 5% MINI-B 100 ML IV SCH ×3 (00:54→17:40)
[2023-08-11] MEDS: oxyCODONE HCL IR 5 MG TAB (IMMEDIATE RELEASE) PO PRN ×5 (02:57→23:31)
[2023-08-11] MEDS: ACETAMINOPHEN 500 MG TAB PO SCH ×3 (05:23→21:20)
[2023-08-11 06:21] LABS: Basophils # (auto) 0.06 K/uL (0.00-0.20); Basophils % (auto) 0.8 %; Eosinophils # (auto) 0.43 K/uL (0.00-0.50); Eosinophils % (auto) 5.7 %; Hemoglobin 10.1 g/dl (14.0-18.0); Immature Granulocytes # (auto) 0.06 K/uL (0.01-0.20); Immature Granulocytes % (auto) 0.8 %; Lymphocytes # (auto) 1.42 K/uL (1.20-3.40); Lymphocytes % (auto) 18.7 %; Mean Corpuscular Hemoglobin 30.9 pg (25.0-34.0); Mean Corpuscular Hgb Conc 32.6 g/dL (32.0-36.0); Mean Corpuscular Volume 94.8 fL (80.0-100.0); Mean Platelet Volume 10.2 fL (9.4-12.4); Monocytes # (auto) 0.69 K/uL (0.11-0.59); Monocytes % (auto) 9.1 %; Neutrophils # (auto) 4.94 K/uL (1.40-6.50); Neutrophils % (auto) 64.9 %; Platelet Count 277 K/uL (130-400); RDW Coefficient of Variation 14.7 % (11.5-14.5); RDW Standard Deviation 50.4 fL (36.4-46.3); Red Blood Count 3.27 M/uL (4.70-6.10)
[2023-08-11 06:30] LABS: Albumin Globulin Ratio 1.2 (0.9-2); Albumin Level 3.5 gm/dl (3.4-5.0); BUN Creatinine Ratio 20.2 (10-20); Bilirubin,Total 0.5 mg/dl (0.2-1.0); Creatinine Clr Calc Pharmacy 85.2 ml/min; Est GFR (African American) 72.3 ml/min; Est GFR (Non-African American) 62.4 ml/min; Globulin 2.9 gm/dl (2.5-4.0); Magnesium 1.8 mg/dl (1.7-2.4); Potassium 4.6 mmol/L (3.5-5.1); Total Protein 6.4 gm/dl (6.0-8.3)
[2023-08-11 06:36] LABS: INR 1.2 (0.9-1.1); Prothrombin Time 12.9 Seconds (9.0-12.0)
[2023-08-11] MEDS: PANTOprazole 40 MG TAB PO SCH (08:15)
[2023-08-11] MEDS: carvediloL 6.25 MG TAB PO SCH ×2 (08:16→20:21)
[2023-08-11] MEDS: CITALOPRAM 20 MG TAB PO SCH (08:16)
[2023-08-11] MEDS: GABAPENTIN 300 MG CAP PO SCH ×3 (08:16→20:22)
[2023-08-11] MEDS: CEROVITE ADV FORMULA TAB PO SCH (08:16)
[2023-08-11] MEDS: POLYETHYLENE (MIRALAX) 17 GM PACK PO SCH ×3 (08:17→20:46)
[2023-08-11] MEDS: PSYLLIUM or GUAR GUM FIBER POWDER PACKET PO SCH (08:17)
[2023-08-11] MEDS: INSULIN ASPART PER UNIT CHARGE SC SCH ×4 (08:18→20:21)
--- NOTE | 2023-08-11 10:31 | Hospitalist Progress Note ---
Date of Service August 11, 2023 Assessment & Plan (1) Foot pain, right: (2) Open ankle wound: (3) Elevated troponin: (4) Hypomagnesemia: (5) Anemia: (6) HTN (hypertension): (7) Dyslipidemia: (8) DM type 2 (diabetes mellitus, type 2): (9) Atrial fibrillation: (10) Sleep apnea: (11) Congestive heart failure: (12) GERD (gastroesophageal reflux disease): (13) Depression: (14) Gout: (15) Insomnia: Plan Pt is a 67 yo male who presents to the hospital on 08/03/23 for R ankle ulcer. Pending PT/OT evaluation. Debridement and wound vacuum placement today at 3pm by podiatry. Right ankle ulcer - XR of R ankle w/o obvious bony erosions/change concerning for osteomyelitis; Patients MRI results favored acute osteomyelitis of the calcaneus, but bone biopsy showing NO changes consistent with osteomyelitis - diabetic vs poor peripheral vascularization, likely a mix of both contributing to his current condition - Podiatry following: debridement on 08/03/23 Culture showing Pseudomonas and MSSA and Bactereoides Bone pathology not showing osteomyelitis. Debridement and wound vacuum today at 3pm. Follow up with podiatry clinic after discharge. - Wound care consulted and following. CM working on Home Health for continued wound care after discharge - Continue Zosyn Consider dh with Ciprofloxacin complete 10 days of therapy. Peripheral Vascular Disease - Doppler of the lower extremities revealed hemodynamically significant stenosis with monophasic waveforms in the calf vessels. Elevated velocities are in the mid right peroneal artery. Vascular surgery consulted: > RLE angio with no significant flow obstruction. Atrial fibrillation - in afib on admission, rate controlled -Continue carvedilol - normally anticoagulated with warfarin, INR 2.8 and therapeutic on admission - Last INR 1.3 (08/08/23) - Warfarin re-started 07/11/23 at 8mg. Will change Warfarin dose today to home dose (4mg). Patient to continue home dose after discharge. INR today 1.2 Monitor CBC PT/INR Right ankle "pop" - MRI of ankle on admission showing "previous Achilles repair. No full-thickness tear. Moderate Achilles tendinopathy with mild partial thickness tear of the Achilles". - No bunching of gastrocnemius or weakness with plantar flexion noted on exam, making Achilles tendon rupture unlikely. - X-Ray of ankle showing no fractures or dislocations; osteoarthritis noted. - Continue pain management and monitoring Constipation - Resolved - On home Metamucil and scheduled Miralax TID Elevated troponin - trop elevated 107, downtrended to 99 - EKG showed no significant ST changes - likely secondary to demand from acute illness + atrial fibrillation + infection from open ankle wound Hypomagnesemia - Had run of asymptomatic V-Tach after midnight for 20 seconds (not recurred) Mg today 1.8 - possible cause of pt's atrial fibrillation along with acute infection - Monitor Mg Anemia -Hgb stable (10.1 today) -possibly due to chronic disease; no concern for bleeding -Monitor CBC HTN (hypertension) -Continue carvedilol, eplerenone Dyslipidemia -Pt is not on a statin despite his multiple comorbidities including DM2 w/ complication leading to PAD/PVD DM type 2 (diabetes mellitus, type 2) -DM2 w/ complications of vascular disease -Hold home metformin, was previously on Trulicity per EMR -Lantus, SSI -Continue gabapentin and Celexa for neuropathy - last HA1c 6.2% on 08/03 Sleep apnea -CPAP HS Congestive heart failure -CXR does not demonstrate congestion -Continue carvedilol, eplerenone -Patient was previously on Lasix but seemingly discontinued per EMR, can restart if fluid overload noted for symptom relief GERD (gastroesophageal reflux disease) -Continue omeprazole Depression -Continue Celexa Gout -Continue febuxostat Insomnia -Continue Seroquel FENGI: DM2 Code status: Full DVT prophylaxis: Warfarin Isolation: None Unit: Medical/surgical with telemetry Disposition planning: Pending PT/OT eval Admission and Anticipated Discharge Date Admission Date: August 03, 2023 Supervising Physician Co-Signing Physician Notes Attending Physician Supervision Note: I independently interviewed and examined the patient and verified the brooks history and physical, reviewed labs and image studies and agree with findings and care plan noted above. No new problems or complaints. Vitals noted, in general he is awake and alert pleasant no distress. HEENT normocephalic atraumatic mucous membranes moist. Right ankle wound dressed. Surrounding erythema improved. No deficit with foot movement. Right ankle ulcer in setting of Peripheral arterial disease No osteomyelitis. Cx grew Pseudomonas/MSSA -s/p debridement by podiatry 08/04. -continue zosyn. -Angiogram 08/09 with no flow limiting blockage. -for repeat debridement 08/11 A fib -resume warfarin 08/10. follow INR. DVT prophylaxiswarfarin resumed 08/10. Otherwise as above Subjective Mr. Weir is a 67 y/o man who was admitted due to right ankle ulcer and arterial disease. He is s/o angiography on 08/09/23 where no significant flow obstruction was found. He is also s/p ulcer debridement on 08/03/23 where bone culture did NOT reveal osteomyelitis. Podiatry to perform debridement today as well followed by wound vacuum placement. Patient is found AAOx3, alone, afebrile, and in no acute distress. He refers his ankle pain has remained relatively stable/ unchanged (not better or worse). He denies fevers, chills, malaise, chest pain, SOB, N/V/D, or any other symptom. Review of Systems Review of Systems: As per HPI. Physical Exam Physical Exam: General: Alert. Oriented to person, time, and place. Afebrile. No acute distress. Cardiac: Regular rate and rhythm, no murmurs/rubs/gallops. Respiratory: Clear to auscultation bilaterally, no wheezes/rales/rhonchi. No increased work of breathing. Symmetrical chest rise. No respiratory distress. Abdomen: Soft, nontender, slightly distended. Bowel sounds present. Lower Extremities: Right lower extremity swelling, bandage covering ankle and foot clean/dry, erythema and swelling in right lower extremity present but impro bertha compared to previous examinations; left lower extremity swelling without tenderness or erythema, left fist metatarsal amputated. 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
[2023-08-11] MEDS ORDERED: BUPIVACAINE 0.5 % 5 MG/1 ML MPF 30ML VIAL ONE (14:58)
[2023-08-11] MEDS ORDERED: fentaNYL citrate PF 100 MCG/2 ML VIAL ONE (16:22)
[2023-08-11] MEDS ORDERED: MIDAZOLAM HCL 1 MG/ML 2ML VIAL ONE (16:22)
[2023-08-11] MEDS ORDERED: ONDANSETRON INJ 2 MG/ML 2 ML VIAL ONE (16:22)
[2023-08-11] MEDS ORDERED: LIDOCAINE 2% 2 ML VIAL/AMP(20MG/ML) INFIL ONE (16:22)
[2023-08-11] MEDS ORDERED: PROPOFOL IV EMULSION 10 MG/ML 20 ML VIAL IV ONE (16:22)
--- NOTE | 2023-08-11 16:34 | Anesthesiology Consultation ---
Date of Service August 11, 2023 Assessment & Plan (1) Encounter for pre-operative examination: Chart Review Chart Review: Acceptable Risk for Surgery History Surgery Operation Date: 08/03/23 09:30 Proposed Procedures p Right Heel Wound Debridement, Bone Biopsy - Dean Rush DPM, MS Operation Date: 08/09/23 13:50 Proposed Procedures p Right Leg Angiogram with Intervention - Francis Correia MD Operation Date: 08/11/23 07:00 Proposed Procedures p Left Achilles Tendon Debridement and Application of Wound Vac - Dean Rush DPM, MS Height/Weight Height: 6 ft Weight: 137.2 kg Allergies Allergy/AdvReac Type Severity Reaction Status Date / Time cephalexin AdvReac Severe unknown Verified 08/02/23 22:51 organ elevated enzymes Medications Home Medications Medication Instructions Recorded Confirmed Last Taken metformin 500 mg tablet 1,000 mg PO BID 01/10/19 08/02/23 Unknown carvedilol 12.5 mg tablet 6.25 mg PO BID 08/02/23 08/02/23 Unknown cholecalciferol (vitamin D3) 50 50 mcg PO DAILY 08/02/23 08/02/23 Unknown mcg (2,000 unit) tablet (Vitamin D3) citalopram 20 mg tablet 20 mg PO DAILY 08/02/23 08/02/23 Unknown doxycycline monohydrate 100 mg 100 mg PO DAILY 08/02/23 08/02/23 Unknown tablet eplerenone 25 mg tablet 25 mg PO DAILY 08/02/23 08/02/23 Unknown febuxostat 40 mg tablet 120 mg PO DAILY 08/02/23 08/02/23 Unknown gabapentin 300 mg capsule 300 mg PO TID 08/02/23 08/02/23 Unknown geriatric [id number] 1 tab PO DAILY 08/02/23 08/02/23 Unknown insulin glargine 100 unit/mL (3 30 unit subcut PM 08/02/23 08/02/23 Unknown mL) subcutaneous pen (Basaglar KwikPen U-100 Insulin) omeprazole 40 mg capsule,delayed 40 mg PO DAILY 08/02/23 08/02/23 Unknown release quetiapine 25 mg tablet 25 mg PO HS 08/02/23 08/02/23 Unknown tramadol 50 mg tablet 50 mg PO Q6 PRN Pain 08/02/23 08/02/23 Unknown warfarin 4 mg tablet (Jantoven) 4 mg PO DAILY 08/02/23 08/02/23 Unknown Active Medications Generic Name Dose Route Start Last Admin Trade Name Freq PRN Reason Stop Dose Admin Acetaminophen 1,000 mg 08/03/23 06:00 08/11/23 13:14 Acetaminophen 500 Mg Tab PO 09/02/23 05:59 1,000 mg Q8 RADHA Administration Carvedilol 6.25 mg 08/03/23 09:00 08/11/23 08:16 Carvedilol 6.25 Mg Tab PO 09/02/23 08:59 6.25 mg BID RADHA Administration Citalopram Hydrobromide 20 mg 08/03/23 09:00 08/11/23 08:16 Citalopram 20 Mg Tab PO 09/02/23 08:59 20 mg DAILY RADHA Administration Gabapentin 300 mg 08/03/23 09:00 08/11/23 13:14 Gabapentin 300 Mg Cap PO 09/02/23 08:59 300 mg TID [facility] Administration Piperacillin Sod/Tazobactam 100 mls @ 25 mls/hr 08/08/23 16:00 08/11/23 12:51 Sod 4.5 gm/ Dextrose IV 08/15/23 15:59 Infused Q8H [facility] Infusion Protocol Insulin Aspart 0 units 08/08/23 16:30 08/11/23 12:48 Insulin Aspart Per Unit Charge SC 09/07/23 16:29 Not Given ACHS [facility] Multivitamins/Minerals 1 tab 08/03/23 09:00 08/11/23 08:16 Cerovite Adv Formula Tab PO 09/02/23 08:59 1 tab DAILY RADHA Administration Oxycodone HCl 5 mg 08/08/23 12:22 08/11/23 13:16 Oxycodone Hcl Ir 5 Mg Tab (Immediate Release) PO 08/17/23 02:04 5 mg Q4H PRN Administration Mild-Mod Pain (Scale 1-6) Oxycodone HCl 10 mg 08/08/23 12:20 08/11/23 08:13 Oxycodone Hcl Ir 5 Mg Tab (Immediate Release) PO 08/22/23 12:19 10 mg Q4H PRN Administration Severe Pain (Scale 7, 8, 9,10) Pantoprazole Sodium 40 mg 08/03/23 09:00 08/11/23 08:15 Pantoprazole 40 Mg Tab PO 09/02/23 08:59 40 mg DAILY RADHA Administration Polyethylene Glycol 17 gm 08/06/23 09:00 08/11/23 13:14 Polyethylene (Miralax) 17 Gm Pack PO 09/05/23 08:59 Not Given TID RADHA Psyllium Hydrophilic Mucilloid 1 pkt 08/05/23 12:30 08/11/23 08:17 Psyllium Or Guar Gum Fiber Powder Packet PO 09/04/23 12:29 Not Given QAM RADHA Quetiapine Fumarate 25 mg 08/03/23 21:00 08/10/23 20:48 Quetiapine Fumarate 25 Mg Tablet PO 09/02/23 20:59 25 mg HS RADHA Administration NPO Date Last Intake of Fluids: 08/10/23 Time Last Intake of Fluids: 18:00 Last Intake of Fluids Comment: sip with pills this AM Date Last Intake of Solids: 08/10/23 Time Last Intake of Solids: 18:00 Past Medical History Medical History (Updated 08/11/23 @ 16:37 by Dakota Castellanos MD) Peripheral arterial disease Anemia DM type 2 (diabetes mellitus, type 2) Diverticular disease Sleep apnea Hyperlipidemia Congestive heart failure Atrial fibrillation Bronchitis Past Family History Family History Other Congestive heart failure Past Surgical History Surgical History History of bowel resection Social History Smoking Status: Never smoker Do You Dip or Chew Tobacco: No Hx Alcohol Use: Yes Alcohol type: beer alcohol intake frequency: 0-2 drinks per day Hx Substance Use: No substance use type: does not use Physical Exam Vital Signs Last Vital Signs Temp 37.0 C 08/11/23 16:16 Pulse 73 08/11/23 16:16 Resp 20 08/11/23 16:16 BP 148/79 H 08/11/23 16:16 Pulse Ox 99 08/11/23 16:16 O2 Del Method Room Air 08/11/23 16:16 O2 Flow Rate 4 08/09/23 15:20 FiO2 21 08/11/23 02:45 Testing Laboratory Results 08/11/23 05:18 08/11/23 05:18 PT 12.9 Seconds (9.0-12.0) H 08/11/23 05:18 INR 1.2 (0.9-1.1) H 08/11/23 05:18 APTT 48 Seconds (21-31) H 08/02/23 19:55 Hemoglobin A1c 6.2 % (4.5-5.6) H 08/03/23 07:29 Urine Color Yellow 08/02/23 23:15 Urine Appearance Clear (Clear) 08/02/23 23:15 Urine pH 5.0 (4.5-7.5) 08/02/23 23:15 Ur Specific [place] 1.020 (1.000-1.030) 08/02/23 23:15 Urine Protein Negative (Negative) 08/02/23 23:15 Urine Glucose (UA) Negative (Negative) 08/02/23 23:15 Urine Ketones Negative (Negative) 08/02/23 23:15 Urine Nitrite Negative (Negative) 08/02/23 23:15 Ur Leukocyte Esterase Negative (Negative) 08/02/23 23:15 08/03/23 17:47 Gram Stain - Final Foot,Right Aerobic and Anaerobic Culture - Final No growth 08/03/23 17:47 Gram Stain - Final Ankle,Right Aerobic and Anaerobic Culture - Final Pseudomonas aeruginosa Staphylococcus aureus Bacteroides thetaiotaomicron 08/02/23 21:45 Aerobic Blood Culture - Final Blood No growth in Aerobic bottle after 5 days. Anaerobic Blood Culture - Final No growth in Anaerobic bottle after 5 days. 08/02/23 19:55 Aerobic Blood Culture - Final Blood No growth in Aerobic bottle after 5 days. Anaerobic Blood Culture - Final No growth in Anaerobic bottle after 5 days. 08/02/23 23:15 Gram Stain - Final Ankle,Right Wound Culture - Final Pseudomonas aeruginosa 08/11/23 08/11/23 12:25 08:14 POC Glucose 154 H 145 H Electrocardiogram Date: 08/02/23 Findings: + AFIB @ (86) PVC's aberrant conduction - wide QRS
--- NOTE | 2023-08-11 16:43 | History & Physical Bridge Note ---
Date of Service August 11, 2023 History & Physical Bridge Note I have examined the patient, reviewed the History & Physical and in the interval since the performance of the History & Physical I have noted the following changes of clinical significance: no changes noted
[2023-08-11] MEDS ORDERED: PHENYLEPHRINE HCL 10 MG/ML VIAL ONE (17:21)
[2023-08-11] MEDS ORDERED: GLYCOPYRROLATE 0.2 MG/ML VIAL ONE (17:22)
[2023-08-11] MEDS ORDERED: ePHEDrine sulfate 50 MG/5 ML SYR ONE (17:28)
[2023-08-11] MEDS ORDERED: ATROPINE SULFATE 0.1 MG/ML 10ML SYR IV PRN (17:34)
[2023-08-11] MEDS ORDERED: fentaNYL citrate PF 100 MCG/2 ML VIAL IV PRN (17:34)
[2023-08-11] MEDS ORDERED: ePHEDrine sulfate 50 MG/ML AMP IV PRN (17:34)
--- NOTE | 2023-08-11 17:51 | Post Operative Brief Note ---
Immediate Post Op Note v1 Date of Surgery August 11, 2023 Pre & Post Diagnosis Operation Date: 08/11/23 07:00 <No data on this case meets the specified criteria> I identified the patient and participated in the time-out.: Yes Procedure Operation Date: 08/11/23 07:00 <No data on this case meets the specified criteria> Surgeon Dean Rush DPM, MS Clinical Cytogeneticist Manisha Celis MD Estimated Blood Loss 5 Findings Consistent with Post-Op Diagnosis Specimens Bone calcaneus right - pathology, microbiology Deep wound culture Right ankle Anesthesia Type RN Sedation
--- NOTE | 2023-08-11 18:13 | Anesthesiology Progress Note ---
Date of Service August 11, 2023 Anesthesia Post Procedure Vital Signs Vital Signs: Temp Pulse Pulse Pulse Resp BP BP 08/11/23 18:10 67 20 139/70 08/11/23 18:00 69 13 114/74 08/11/23 17:54 36.3 C L 63 16 129/80 08/11/23 16:16 37.0 C 73 20 148/79 H 08/11/23 15:21 36.5 C 64 18 148/83 H 08/11/23 11:30 36.8 C 62 18 116/65 08/11/23 08:19 36.5 C 76 18 148/71 H 08/11/23 03:22 37 C 70 18 126/68 08/11/23 02:45 14 08/10/23 22:51 36.3 C L 67 18 199/91 H 08/10/23 20:46 62 10 L 08/10/23 19:30 36.6 C 45 L 18 165/61 H Pulse Ox O2 Del Method O2 Flow Rate FiO2 08/11/23 18:10 98 Nasal Cannula 2 08/11/23 18:00 100 Nasal Cannula 5 08/11/23 17:54 100 Nasal Cannula 5 08/11/23 16:16 99 Room Air 08/11/23 15:21 94 Room Air 08/11/23 11:30 96 Room Air 08/11/23 08:19 97 Room Air 08/11/23 03:22 94 Room Air 08/11/23 02:45 21 08/10/23 22:51 96 CPAP 08/10/23 20:46 98 21 08/10/23 19:30 98 Room Air Pain Intensity Right Leg: Pain Intensity: 7 Right Foot: Pain Intensity: 5 Transfer of Care Handoff Completed per policy Notes Mental Status: alert / awake / arousable and participated in evaluation Patient Amnestic to Procedure: Yes Nausea / Vomiting: adequately controlled Pain: adequately controlled Airway Patency, RR, SpO2: stable & adequate BP & HR: stable & adequate Hydration State: stable & adequate Anesthetic Complications: no major complications apparent
[2023-08-11] MEDS: WARFARIN SOD 4 MG TAB PO SCH (18:38)
[2023-08-11] MEDS: QUEtiapine FUMARATE 25 MG TABLET PO SCH (20:22)
--- NOTE | 2023-08-11 22:09 | Operative Report ---
Post Operative Report Pre & Post Diagnosis Operation Date: 08/11/23 07:00 Pre-Op Diagnosis: Open ankle wound Post-Op Diagnosis: Open ankle wound I identified the patient and participated in the time-out.: Yes Procedure Operation Date: 08/11/23 07:00 Actual Procedures p Left Achilles Tendon Debridement and Application of Wound Vac(Left) - Dean Rush DPM, MS Surgeon Dean Rush DPM, MS Hat Brusher Machine Manisha Celis MD Estimated Blood Loss 5 Findings Consistent with Post-Op Diagnosis Specimens none Description of Procedure History of present illness: Patient is a 67-year-old male with right diabetic posterior ankle ulcer. Patient seen today for wound debridement, and application of wound vac. Procedure in detail was discussed as well as postoperative care. All questions were answered. All potential risks, benefits, complications, alternatives, rehab, potential for incomplete relief of symptoms, need for further surgery, DVT, PE, , persistent pain, swelling, scarring, weakness, neurovascular, wound complications and potential for amputations were discussed with patient. Unwanted outcomes such as, but not limited to were reviewed including under correction, overcorrection, return of deformity, infection. All questions were answered. Patient has decided to proceed with procedure as indicated. Preoperative diagnosis: 1.) Right posterior ankle diabetic wound necrotic soft tissue involving tendon Postoperative diagnosis: Same Procedure in detail: 1.) Excision of necrotic soft tissue and Achilles tendon right foot 2.) Application of negative pressure Wound Vac therapy Surgeon: Dr. Rush Hat Brusher Machine: none Anesthesia: Local monitored anesthesia care Hemostasis: none Estimated blood loss: 5ml Specimens: None Procedure in detail: Under mild sedation the patient was brought in the operating room and placed on the operating table in supine position. Following sedation the foot and ankle were prepped scrubbed and draped in the usual aseptic manner. Attention was then directed to right posterior ankle non healing wound with exposed necrotic Achilles tendon. The wound measures roughly 6 cm x 4 cm x 2 cm. Utilizing a sharp, sterile, #15 blade of extensive debridement of necrotic devitalized soft tissue was achieved. Greater than 50% of the tendon was found to be necrotic and excised. The remaining portion seemed compromised and unstable. The wound bed was voided of non-viable tissue. All bleeders were ligated and cauterized as necessary. Lactate ringer was utilized to flush the wound. The [facility] negative pressure wound vac dressing was applied. The wound vac was set to 125mmHg continuous was started. A, kerlix and Garret were then applied. The Patient tolerated procedure and anesthesia well. He was transferred to the recovery room with vital signs stable and vascular status intact. Following a period of postoperative monitoring the patient will be readmitted back to the floor resuming all preoperative orders. Keep dressing clean dry and intact, avoid ambulation. Dr. Rush for all postoperative care if any problems arise. I attest to the content of the Intraoperative Record and any orders documented therein. Any exceptions are noted below.
[2023-08-12] MEDS: PIPERACILLIN/TAZOBACTAM 4.5 GM in DEXTROSE 5% MINI-B 100 ML IV SCH ×3 (00:27→17:23)
[2023-08-12] MEDS: oxyCODONE HCL IR 5 MG TAB (IMMEDIATE RELEASE) PO PRN ×3 (04:40→21:08)
[2023-08-12] MEDS: ACETAMINOPHEN 500 MG TAB PO SCH ×3 (05:37→23:04)
[2023-08-12 06:20] LABS: Basophils # (auto) 0.05 K/uL (0.00-0.20); Basophils % (auto) 0.7 %; Eosinophils % (auto) 5.5 %; Hematocrit (blood only) 31.6 % (42.0-52.0); Immature Granulocytes # (auto) 0.06 K/uL (0.01-0.20); Immature Granulocytes % (auto) 0.8 %; Lymphocytes # (auto) 1.48 K/uL (1.20-3.40); Lymphocytes % (auto) 20.3 %; Mean Corpuscular Hemoglobin 30.6 pg (25.0-34.0); Mean Corpuscular Hgb Conc 31.6 g/dL (32.0-36.0); Mean Corpuscular Volume 96.6 fL (80.0-100.0); Mean Platelet Volume 9.8 fL (9.4-12.4); Monocytes # (auto) 0.66 K/uL (0.11-0.59); Monocytes % (auto) 9.1 %; Neutrophils # (auto) 4.64 K/uL (1.40-6.50); Neutrophils % (auto) 63.6 %; Platelet Count 248 K/uL (130-400); RDW Coefficient of Variation 15.1 % (11.5-14.5); RDW Standard Deviation 51.7 fL (36.4-46.3); Red Blood Count 3.27 M/uL (4.70-6.10); White Blood Count 7.29 K/ul (4.8-10.8)
[2023-08-12 06:48] LABS: INR 1.3 (0.9-1.1); Prothrombin Time 13.9 Seconds (9.0-12.0)
[2023-08-12 06:50] LABS: Albumin Globulin Ratio 1.3 (0.9-2); Albumin Level 3.5 gm/dl (3.4-5.0); BUN Creatinine Ratio 17.7 (10-20); Bilirubin,Total 0.5 mg/dl (0.2-1.0); Calcium 9.1 mg/dl (8.6-10.3); Creatinine Clr Calc Pharmacy 89.8 ml/min; Est GFR (Non-African American) 66.4 ml/min; Globulin 2.8 gm/dl (2.5-4.0); Magnesium 1.8 mg/dl (1.7-2.4); Potassium 4.6 mmol/L (3.5-5.1); Total Protein 6.3 gm/dl (6.0-8.3)
[2023-08-12] MEDS: PANTOprazole 40 MG TAB PO SCH (08:54)
[2023-08-12] MEDS: GABAPENTIN 300 MG CAP PO SCH ×3 (08:55→19:57)
[2023-08-12] MEDS: POLYETHYLENE (MIRALAX) 17 GM PACK PO SCH ×3 (08:55→19:57)
[2023-08-12] MEDS: carvediloL 6.25 MG TAB PO SCH ×2 (08:55→19:57)
[2023-08-12] MEDS: CITALOPRAM 20 MG TAB PO SCH (08:55)
[2023-08-12] MEDS: CEROVITE ADV FORMULA TAB PO SCH (08:55)
[2023-08-12] MEDS: PSYLLIUM or GUAR GUM FIBER POWDER PACKET PO SCH (08:56)
[2023-08-12] MEDS: INSULIN ASPART PER UNIT CHARGE SC SCH ×4 (08:58→21:21)
--- NOTE | 2023-08-12 10:26 | Hospitalist Progress Note ---
Date of Service August 12, 2023 Assessment & Plan (1) Foot pain, right: (2) Open ankle wound: (3) Elevated troponin: (4) Hypomagnesemia: (5) Anemia: (6) HTN (hypertension): (7) Dyslipidemia: (8) DM type 2 (diabetes mellitus, type 2): (9) Atrial fibrillation: (10) Sleep apnea: (11) Congestive heart failure: (12) GERD (gastroesophageal reflux disease): (13) Depression: (14) Gout: (15) Insomnia: Plan Pt is a 67 yo male who presents to the hospital on 08/03/23 for R ankle ulcer. Debridement and wound vacuum placement yesterday by podiatry. PT finds patient able to return home after discharge, but will continue PT while in hospital. Pending OT eval. Right ankle ulcer - XR of R ankle w/o obvious bony erosions/change concerning for osteomyelitis; Patients MRI results favored acute osteomyelitis of the calcaneus, but bone biopsy showing NO changes consistent with osteomyelitis - diabetic vs poor peripheral vascularization, likely a mix of both contributing to his current condition - Podiatry following: debridement on 08/03/23 Culture showing Pseudomonas and MSSA and Bactereoides Bone pathology not showing osteomyelitis. Debridement and wound vacuum yesterday. Follow up with podiatry clinic after discharge. - Wound care consulted and following. CM working on Home Health for continued wound care after discharge - Continue Zosyn (day 05/07) Peripheral Vascular Disease - Doppler of the lower extremities revealed hemodynamically significant stenosis with monophasic waveforms in the calf vessels. Elevated velocities are in the mid right peroneal artery. Vascular surgery consulted: > RLE angio with no significant flow obstruction. Atrial fibrillation - in afib on admission, rate controlled -Continue carvedilol - normally anticoagulated with warfarin, INR 2.8 and therapeutic on admission - Last INR 1.3 (08/08/23) - Warfarin re-started 07/11/23 at 8mg. Will change Warfarin dose today to home dose (4mg). Patient to continue home dose after discharge. INR today 1.3 Hgb stable -- today 10 Monitor CBC PT/INR Right ankle "pop" - MRI of ankle on admission showing "previous Achilles repair. No full-thickness tear. Moderate Achilles tendinopathy with mild partial thickness tear of the Ac hilles". - No bunching of gastrocnemius or weakness with plantar flexion noted on exam, making Achilles tendon rupture unlikely. - X-Ray of ankle showing no fractures or dislocations; osteoarthritis noted. - Continue pain management and monitoring Constipation - Resolved - On home Metamucil and scheduled Miralax TID Elevated troponin - trop elevated 107, downtrended to 99 - EKG showed no significant ST changes - likely secondary to demand from acute illness + atrial fibrillation + infection from open ankle wound Hypomagnesemia - Resolved (1.8 today) Anemia -Hgb stable -possibly due to chronic disease; no concern for bleeding -Monitor CBC HTN (hypertension) -Continue carvedilol, eplerenone Dyslipidemia -Pt is not on a statin despite his multiple comorbidities including DM2 w/ complication leading to PAD/PVD DM type 2 (diabetes mellitus, type 2) -DM2 w/ complications of vascular disease -Hold home metformin, was previously on Trulicity per EMR -Lantus, SSI -Continue gabapentin and Celexa for neuropathy - last HA1c 6.2% on 08/03 Sleep apnea -CPAP HS Congestive heart failure -CXR does not demonstrate congestion -Continue carvedilol, eplerenone -Patient was previously on Lasix but seemingly discontinued per EMR, can restart if fluid overload noted for symptom relief GERD (gastroesophageal reflux disease) -Continue omeprazole Depression -Continue Celexa Gout -Continue febuxostat Insomnia -Continue Seroquel FENGI: DM2 Code status: Full DVT prophylaxis: Warfarin Isolation: None Unit: Medical/surgical with telemetry Disposition planning: Pending PT/OT eval Admission and Anticipated Discharge Date Admission Date: August 03, 2023 Supervising Physician Co-Signing Physician Notes Attending Physician Supervision Note: I independently interviewed and examined the patient and verified the brooks history and physical, reviewed labs and image studies and agree with findings and care plan noted above. No new problems or complaints. Vitals noted, in general he is awake and alert pleasant no distress. HEENT normocephalic atraumatic mucous membranes moist. Right ankle wound dressed. Right ankle ulcer in setting of Peripheral arterial disease No osteomyelitis. Cx grew Pseudomonas/MSSA -s/p debridement by podiatry 08/04. -continue zosyn. -Angiogram 08/09 with no flow limiting blockage. -repeat debridement 08/11 A fib -resume warfarin 08/10. follow INR. DVT prophylaxiswarfarin resumed 08/10. Pending PT/OT eval. Otherwise as above Subjective Mr. Weir is a 67 y/o man who was admitted due to right ankle ulcer and arterial disease. He is s/o angiography on 08/09/23 where no significant flow obstruction was found. He is also s/p ulcer debridement on 08/03/23 where bone culture did NOT reveal osteomyelitis. Podiatry to perform debridement yesterday as well followed by wound vacuum placement. Patient is found AAOx3, alone, afebrile, and in no acute distress. He refers his ankle pain has remained relatively stable/ unchanged (not better or worse). He denies fevers, chills, malaise, chest pain, SOB, N/V/D, or any other symptom. Review of Systems Review of Systems: As per HPI. Physical Exam Physical Exam: General: Alert. Oriented to person, time, and place. Afebrile. No acute distress. Cardiac: Regular rate and rhythm, no murmurs/rubs/gallops. Respiratory: Clear to auscultation bilaterally, no wheezes/rales/rhonchi. No increased work of breathing. Symmetrical chest rise. No respiratory distress. Abdomen: Soft, nontender, slightly distended. Bowel sounds present. Lower Extremities: Right lower extremity swelling, bandage covering ankle and foot clean/dry, erythema and swelling in right lower extremity present but improved compared to previous examinations; left lower extremity swelling without tenderness or erythema, left fist metatarsal amputated. Results & Data Results & Data Vital Signs (Past 12 Hours) Vital Signs Temp Pulse Pulse Resp BP BP Pulse Ox 08/12/23 07:31 36.1 C L 70 16 122/73 95 08/12/23 04:03 36.2 C L 66 18 145/69 H 98 08/12/23 03:16 72 14 94 08/11/23 23:14 36.8 C 63 18 115/53 L 96 08/11/23 22:52 63 16 96 O2 Del Method 08/12/23 07:31 Room Air, CPAP 08/12/23 04:03 Room Air, CPAP 08/12/23 03:16 08/11/23 23:14 Room Air 08/11/23 22:52 Resident Activity Tracking Resident Involvement: Resident Care Provided Care Provided: Adult Hospital Medicine (8) DM type 2 (diabetes mellitus, type 2) Diabetes mellitus complication status: with skin complications 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
[2023-08-12] MEDS: WARFARIN SOD 4 MG TAB PO SCH (17:23)
[2023-08-12] MEDS: QUEtiapine FUMARATE 25 MG TABLET PO SCH (19:58)
[2023-08-13] MEDS: PIPERACILLIN/TAZOBACTAM 4.5 GM in DEXTROSE 5% MINI-B 100 ML IV SCH ×4 (00:04→23:39)
[2023-08-13] MEDS: ACETAMINOPHEN 500 MG TAB PO SCH ×3 (05:07→21:21)
[2023-08-13 05:52] LABS: Basophils # (auto) 0.06 K/uL (0.00-0.20); Basophils % (auto) 0.8 %; Eosinophils # (auto) 0.39 K/uL (0.00-0.50); Eosinophils % (auto) 5.4 %; Hematocrit (blood only) 31.2 % (42.0-52.0); Immature Granulocytes # (auto) 0.06 K/uL (0.01-0.20); Immature Granulocytes % (auto) 0.8 %; Mean Corpuscular Hemoglobin 30.8 pg (25.0-34.0); Mean Corpuscular Hgb Conc 32.1 g/dL (32.0-36.0); Mean Platelet Volume 9.9 fL (9.4-12.4); Monocytes # (auto) 0.63 K/uL (0.11-0.59); Monocytes % (auto) 8.7 %; Neutrophils # (auto) 4.79 K/uL (1.40-6.50); Neutrophils % (auto) 66.3 %; Platelet Count 227 K/uL (130-400); RDW Coefficient of Variation 14.9 % (11.5-14.5); RDW Standard Deviation 51.2 fL (36.4-46.3); Red Blood Count 3.25 M/uL (4.70-6.10); White Blood Count 7.23 K/ul (4.8-10.8)
[2023-08-13 06:05] LABS: Albumin Globulin Ratio 1.2 (0.9-2); Albumin Level 3.5 gm/dl (3.4-5.0); BUN Creatinine Ratio 23.6 (10-20); Bilirubin,Total 0.5 mg/dl (0.2-1.0); Calcium 9.4 mg/dl (8.6-10.3); Creatinine Clr Calc Pharmacy 82.5 ml/min; Est GFR (African American) 69.5 ml/min; Est GFR (Non-African American) 59.9 ml/min; Globulin 2.9 gm/dl (2.5-4.0); Magnesium 1.7 mg/dl (1.7-2.4); Potassium 4.5 mmol/L (3.5-5.1); Total Protein 6.4 gm/dl (6.0-8.3)
[2023-08-13 06:18] LABS: INR 1.4 (0.9-1.1); Prothrombin Time 15.1 Seconds (9.0-12.0)
[2023-08-13] MEDS: carvediloL 6.25 MG TAB PO SCH ×2 (08:29→21:17)
[2023-08-13] MEDS: GABAPENTIN 300 MG CAP PO SCH ×3 (08:29→21:17)
[2023-08-13] MEDS: CEROVITE ADV FORMULA TAB PO SCH (08:29)
[2023-08-13] MEDS: PANTOprazole 40 MG TAB PO SCH (08:29)
[2023-08-13] MEDS: CITALOPRAM 20 MG TAB PO SCH (08:29)
[2023-08-13] MEDS: POLYETHYLENE (MIRALAX) 17 GM PACK PO SCH ×3 (08:30→21:17)
[2023-08-13] MEDS: PSYLLIUM or GUAR GUM FIBER POWDER PACKET PO SCH (08:30)
[2023-08-13] MEDS: INSULIN ASPART PER UNIT CHARGE SC SCH ×4 (08:34→21:34)
--- NOTE | 2023-08-13 12:40 | Hospitalist Progress Note ---
Date of Service August 13, 2023 Assessment & Plan (1) Foot pain, right: (2) Open ankle wound: (3) Elevated troponin: (4) Hypomagnesemia: (5) Anemia: (6) HTN (hypertension): (7) Dyslipidemia: (8) DM type 2 (diabetes mellitus, type 2): (9) Atrial fibrillation: (10) Sleep apnea: (11) Congestive heart failure: (12) GERD (gastroesophageal reflux disease): (13) Depression: (14) Gout: (15) Insomnia: Plan Pt is a 67 yo male who presents to the hospital on 08/03/23 for R ankle ulcer. Debridement and wound vacuum placement yesterday by podiatry. PT/OT finds patient able to return home after discharge, but will continue PT while in hospital. Anticipate discharge tomorrow after wound care checks wound vacuum since tomorrow the 72 hours si ce placement are met. Right ankle ulcer - XR of R ankle w/o obvious bony erosions/change concerning for osteomyelitis; Patients MRI results favored acute osteomyelitis of the calcaneus, but bone biopsy showing NO changes consistent with osteomyelitis - diabetic vs poor peripheral vascularization, likely a mix of both contributing to his current condition - Podiatry following: debridement on 08/03/23 Culture showing Pseudomonas and MSSA and Bactereoides Bone pathology not showing osteomyelitis. Debridement and wound vacuum yesterday. Follow up with podiatry clinic after discharge. - Wound care consulted and following. CM working on Home Health for continued wound care after discharge - Continue Zosyn (day 06/06) Peripheral Vascular Disease - Doppler of the lower extremities revealed hemodynamically significant stenosis with monophasic waveforms in the calf vessels. Elevated velocities are in the mid right peroneal artery. Vascular surgery consulted: > RLE angio with no significant flow obstruction. Atrial fibrillation - in afib on admission, rate controlled -Continue carvedilol - normally anticoagulated with warfarin, INR 2.8 and therapeutic on admission - Last INR 1.3 (08/08/23) - Warfarin re-started 07/11/23 at 8mg. Currently at home dose (4mg). Patient to continue home dose after discharge. INR today 1.4 Hgb stable -- today 10 Monitor CBC PT/INR Right ankle "pop" - MRI of ankle on admission showing "previous Achilles repair. No full-thickness tear. Moderate Achilles tendinopathy with mild partial thickness tear of the Achilles". - No bunching of gastrocnemius or weakness with plantar flexion noted on exam, making Achilles tendon rupture unlikely. - X-Ray of ankle showing no fractures or dislocations; osteoarthritis noted. - Continue pain management and monitoring Constipation - Resolved - On home Metamucil and scheduled Miralax TID Elevated troponin - trop elevated 107, downtrended to 99 - EKG showed no significant ST changes - likely secondary to demand from acute illness + atrial fibrillation + infection from open ankle wound Hypomagnesemia - Resolved (1.8 today) Anemia -Hgb stable -possibly due to chronic disease; no concern for bleeding -Monitor CBC HTN (hypertension) -Continue carvedilol, eplerenone Dyslipidemia -Pt is not on a statin despite his multiple comorbidities including DM2 w/ complication leading to PAD/PVD DM type 2 (diabetes mellitus, type 2) -DM2 w/ complications of vascular disease -Hold home metformin, was previously on Trulicity per EMR -Lantus, SSI -Continue gabapentin and Celexa for neuropathy - last HA1c 6.2% on 08/03 Sleep apnea -CPAP HS Congestive heart failure -CXR does not demonstrate congestion -Continue carvedilol, eplerenone -Patient was previously on Lasix but seemingly discontinued per EMR, can restart if fluid overload noted for symptom relief GERD (gastroesophageal reflux disease) -Continue omeprazole Depression -Continue Celexa Gout -Continue febuxostat Insomnia -Continue Seroquel FENGI: DM2 Code status: Full DVT prophylaxis: Warfarin Isolation: None Unit: Medical/surgical with telemetry Disposition planning: Pending PT/OT eval Admission and Anticipated Discharge Date Admission Date: August 03, 2023 Supervising Physician Co-Signing Physician Notes Attending Physician Supervision Note: I independently interviewed and examined the patient and verified the brooks history and physical, reviewed labs and image studies and agree with findings and care plan noted above. No new problems or complaints. Vitals noted, in general he is awake and alert pleasant no distress. HEENT normocephalic atraumatic mucous membranes moist. Right ankle wound dressed. wound vac in place Right ankle ulcer in setting of Peripheral arterial disease No osteomyelitis. Cx grew Pseudomonas/MSSA -s/p debridement by podiatry 08/04. -continue zosyn. -Angiogram 08/09 with no flow limiting blockage. -repeat debridement 08/11 with wound vac placement A fib -resume warfarin 08/10. follow INR. DVT prophylaxiswarfarin resumed 08/10. To return home per PT/OT eval. Will need home health arrangement for wound vac at home. Otherwise as above Subjective Mr. Weir is a 67 y/o man who was admitted due to right ankle ulcer and arterial disease. He is s/o angiography on 08/09/23 where no significant flow obstruction was found. He is also s/p ulcer debridement on 08/03/23 where bone culture did NOT reveal osteomyelitis. Podiatry to perform debridement yesterday as well followed by wound vacuum placement. Patient is found AAOx3, alone, afebrile, and in no acute distress. He denies fevers, chills, malaise, chest pain, SOB, N/V/D, or any other symptom. Review of Systems Review of Systems: As per HPI. Physical Exam Physical Exam: General: Alert. Oriented to person, time, and place. Afebrile. No acute distres s. Cardiac: Regular rate and rhythm, no murmurs/rubs/gallops. Respiratory: Clear to auscultation bilaterally, no wheezes/rales/rhonchi. No increased work of breathing. Symmetrical chest rise. No respiratory distress. Abdomen: Soft, nontender, slightly distended. Bowel sounds present. Lower Extremities: Right lower extremity swelling, bandage covering ankle and foot clean/dry, erythema and swelling in right lower extremity present but improved compared to previous examinations; left lower extremity swelling without tenderness or erythema, left fist metatarsal amputated. 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
[2023-08-13] MEDS: WARFARIN SOD 4 MG TAB PO SCH (17:26)
[2023-08-13] MEDS: oxyCODONE HCL IR 5 MG TAB (IMMEDIATE RELEASE) PO PRN (20:49)
[2023-08-13] MEDS: QUEtiapine FUMARATE 25 MG TABLET PO SCH (21:40)
[2023-08-14] MEDS: ACETAMINOPHEN 500 MG TAB PO SCH ×3 (06:28→21:31)
[2023-08-14 07:26] LABS: Basophils # (auto) 0.05 K/uL (0.00-0.20); Basophils % (auto) 0.7 %; Eosinophils # (auto) 0.48 K/uL (0.00-0.50); Eosinophils % (auto) 6.5 %; Hematocrit (blood only) 30.1 % (42.0-52.0); Hemoglobin 9.9 g/dl (14.0-18.0); Immature Granulocytes # (auto) 0.07 K/uL (0.01-0.20); Immature Granulocytes % (auto) 0.9 %; Lymphocytes # (auto) 1.25 K/uL (1.20-3.40); Lymphocytes % (auto) 16.9 %; Mean Corpuscular Hgb Conc 32.9 g/dL (32.0-36.0); Mean Corpuscular Volume 94.4 fL (80.0-100.0); Mean Platelet Volume 10.3 fL (9.4-12.4); Monocytes # (auto) 0.69 K/uL (0.11-0.59); Monocytes % (auto) 9.3 %; Neutrophils # (auto) 4.87 K/uL (1.40-6.50); Neutrophils % (auto) 65.7 %; Platelet Count 228 K/uL (130-400); RDW Coefficient of Variation 15.2 % (11.5-14.5); RDW Standard Deviation 51.3 fL (36.4-46.3); Red Blood Count 3.19 M/uL (4.70-6.10); White Blood Count 7.41 K/ul (4.8-10.8)
[2023-08-14 07:33] LABS: Albumin Globulin Ratio 1.2 (0.9-2); Albumin Level 3.4 gm/dl (3.4-5.0); BUN Creatinine Ratio 22.8 (10-20); Bilirubin,Total 0.5 mg/dl (0.2-1.0); Creatinine Clr Calc Pharmacy 74.6 ml/min; Est GFR (African American) 61.5 ml/min; Est GFR (Non-African American) 53.1 ml/min; Globulin 2.9 gm/dl (2.5-4.0); Potassium 4.2 mmol/L (3.5-5.1); Total Protein 6.3 gm/dl (6.0-8.3)
[2023-08-14 07:34] LABS: INR 1.5 (0.9-1.1); Prothrombin Time 15.9 Seconds (9.0-12.0)
[2023-08-14] MEDS: GABAPENTIN 300 MG CAP PO SCH ×3 (08:47→21:31)
[2023-08-14] MEDS: CITALOPRAM 20 MG TAB PO SCH (08:47)
[2023-08-14] MEDS: PANTOprazole 40 MG TAB PO SCH (08:47)
[2023-08-14] MEDS: CEROVITE ADV FORMULA TAB PO SCH (08:47)
[2023-08-14] MEDS: PSYLLIUM or GUAR GUM FIBER POWDER PACKET PO SCH (08:48)
[2023-08-14] MEDS: POLYETHYLENE (MIRALAX) 17 GM PACK PO SCH ×3 (08:48→21:31)
[2023-08-14] MEDS: INSULIN ASPART PER UNIT CHARGE SC SCH ×4 (08:55→21:23)
[2023-08-14] MEDS: carvediloL 6.25 MG TAB PO SCH ×2 (08:59→21:21)
[2023-08-14] MEDS: PIPERACILLIN/TAZOBACTAM 4.5 GM in DEXTROSE 5% MINI-B 100 ML IV SCH (09:18)
[2023-08-14] MEDS: oxyCODONE HCL IR 5 MG TAB (IMMEDIATE RELEASE) PO PRN (09:29)
--- NOTE | 2023-08-14 12:29 | Hospitalist Progress Note ---
Date of Service August 14, 2023 Assessment & Plan (1) Foot pain, right: (2) Open ankle wound: (3) Elevated troponin: (4) Hypomagnesemia: (5) Anemia: (6) HTN (hypertension): (7) Dyslipidemia: (8) DM type 2 (diabetes mellitus, type 2): (9) Atrial fibrillation: (10) Sleep apnea: (11) Congestive heart failure: (12) GERD (gastroesophageal reflux disease): (13) Depression: (14) Gout: (15) Insomnia: Plan Pt is a 67 yo male who presents to the hospital on 08/03/23 for R ankle ulcer. S/p repeat ulcer debridement on 08/11/23 with wound vacuum placement. Wound vacuum to be replaced today since 72 hours since placement are met. Right ankle ulcer - XR of R ankle w/o obvious bony erosions/change concerning for osteomyelitis; Patients MRI results favored acute osteomyelitis of the calcaneus, but bone biopsy showing NO changes consistent with osteomyelitis - diabetic vs poor peripheral vascularization, likely a mix of both contributing to his current condition - Podiatry following: debridement on 08/03/23 Culture showing Pseudomonas and MSSA and Bactereoides Bone pathology not showing osteomyelitis. Debridement and wound vacuum yesterday. Follow up with podiatry clinic after discharge. - Wound care consulted and following. CM working on Home Health for continued wound care after discharge. Anticipate discharge tomorrow once home wound vac is coordinated. CM following. - Dc Zosyn after 10 days of therapy. Peripheral Vascular Disease - Doppler of the lower extremities revealed hemodynamically significant stenosis with monophasic waveforms in the calf vessels. Elevated velocities are in the mid right peroneal artery. Vascular surgery consulted: > RLE angio with no significant flow obstruction. Atrial fibrillation - in afib on admission, rate controlled -Continue carvedilol - normally anticoagulated with warfarin, INR 2.8 and therapeutic on admission - Last INR 1.3 (08/08/23) - Warfarin re-started 07/11/23 at 8mg. Currently at home dose (4mg). Patient to continue home dose after discharge. INR today 1.4 Hgb stable -- today 10 Monitor CBC PT/INR Right ankle "pop" - MRI of ankle on admission showing "previous Achilles repair. No full-thickness tear. Moderate Achilles tendinopathy with mild partial thickness tear of the Achilles". - No bunching of gastrocnemius or weakness with plantar flexion noted on exam, making Achilles tendon rupture unlikely. - X-Ray of ankle showing no fractures or dislocations; osteoarthritis noted. - Continue pain management and monitoring Constipation - Resolved - On home Metamucil and scheduled Miralax TID Elevated troponin - trop elevated 107, downtrended to 99 - EKG showed no significant ST changes - likely secondary to demand from acute illness + atrial fibrillation + infection from open ankle wound Hypomagnesemia - Resolved (1.8 today) Anemia -Hgb stable -possibly due to chronic disease; no concern for bleeding -Monitor CBC HTN (hypertension) -Continue carvedilol, eplerenone Dyslipidemia -Pt is not on a statin despite his multiple comorbidities including DM2 w/ complication leading to PAD/PVD DM type 2 (diabetes mellitus, type 2) -DM2 w/ complications of vascular disease -Hold home metformin, was previously on Trulicity per EMR -Lantus, SSI -Continue gabapentin and Celexa for neuropathy - last HA1c 6.2% on 08/03 Sleep apnea -CPAP HS Congestive heart failure -CXR does not demonstrate congestion -Continue carvedilol, eplerenone -Patient was previously on Lasix but seemingly discontinued per EMR, can restart if fluid overload noted for symptom relief GERD (gastroesophageal reflux disease) -Continue omeprazole Depression -Continue Celexa Gout -Continue febuxostat Insomnia -Continue Seroquel FENGI: DM2 Code status: Full DVT prophylaxis: Warfarin Isolation: None Unit: Medical/surgical with telemetry Disposition planning: Pending home wound vac coordination Admission and Anticipated Discharge Date Admission Date: August 03, 2023 Supervising Physician Co-Signing Physician Notes I personally examined the patient and verified all brooks points of history and exam, discussed case, and agree with decision making with Dr Bhatti feeling ok just hoping to know if he can get out today since 70miles home - immediately left room and talked w case management /gave wound vac Rx/asked them to let me know as soon as they did so he could plan accordingly. vitals noted nad heent nc at mmm breathing unlabored no accesory muscles good ef fort skin no rashes no pallor or icterus Right ankle ulcer in setting of Peripheral arterial disease No osteomyelitis. Cx grew Pseudomonas/MSSA -s/p debridement by podiatry 08/04. -treated wtih zosyn. -Angiogram 08/09 -repeat debridement 08/11 with wound vac placement A fib -rate controlled. warfarin resumed, INR 1.5 DVT prophylaxiswarfarin To return home per PT/OT eval. for home once wound vac/home health set up Otherwise as above Subjective Mr. Weir is a 67 y/o man who was admitted due to right ankle ulcer and arterial disease. He is s/o angiography on 08/09/23 where no significant flow obstruction was found. He is also s/p ulcer debridement on 08/03/23 where bone culture did NOT reveal osteomyelitis. Podiatry performed repeat ulcer debridement and wound vacuum placement on 08/11/23. Patient is found AAOx3, alone, afebrile, and in no acute distress. He denies fevers, chills, malaise, chest pain, SOB, N/V/D, or any other symptom. Review of Systems Review of Systems: As per HPI. Physical Exam Physical Exam: General: Alert. Oriented to person, time, and place. Afebrile. No acute distress. Cardiac: Regular rate and rhythm, no murmurs/rubs/gallops. Respiratory: Clear to auscultation bilaterally, no wheezes/rales/rhonchi. No increased work of breathing. Symmetrical chest rise. No respiratory distress. Abdomen: Soft, nontender, slightly distended. Bowel sounds present. Lower Extremities: Right lower extremity swelling, bandage covering ankle and foot clean/dry, no lower extremity erythema bilaterally; left lower extremity swelling without tenderness or erythema, left fist metatarsal amputated. 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
[2023-08-14] MEDS: WARFARIN SOD 4 MG TAB PO SCH (16:24)
--- NOTE | 2023-08-14 17:37 | Billing Data ---
Date of Service August 14, 2023 Coding Level of Care Code 87108 SUB INP/OBS CARE
[2023-08-14] MEDS: QUEtiapine FUMARATE 25 MG TABLET PO SCH (21:22)
[2023-08-15] MEDS: oxyCODONE HCL IR 5 MG TAB (IMMEDIATE RELEASE) PO PRN (00:47)
[2023-08-15] MEDS: ACETAMINOPHEN 500 MG TAB PO SCH ×2 (06:16→14:36)
[2023-08-15 06:57] LABS: Basophils # (auto) 0.06 K/uL (0.00-0.20); Basophils % (auto) 0.8 %; Eosinophils # (auto) 0.42 K/uL (0.00-0.50); Eosinophils % (auto) 5.6 %; Hematocrit (blood only) 32.4 % (42.0-52.0); Hemoglobin 10.5 g/dl (14.0-18.0); Immature Granulocytes # (auto) 0.08 K/uL (0.01-0.20); Immature Granulocytes % (auto) 1.1 %; Lymphocytes # (auto) 1.73 K/uL (1.20-3.40); Lymphocytes % (auto) 23.2 %; Mean Corpuscular Hemoglobin 30.8 pg (25.0-34.0); Mean Corpuscular Hgb Conc 32.4 g/dL (32.0-36.0); Monocytes # (auto) 0.87 K/uL (0.11-0.59); Monocytes % (auto) 11.6 %; Neutrophils # (auto) 4.31 K/uL (1.40-6.50); Neutrophils % (auto) 57.7 %; Platelet Count 226 K/uL (130-400); RDW Coefficient of Variation 15.4 % (11.5-14.5); RDW Standard Deviation 52.6 fL (36.4-46.3); Red Blood Count 3.41 M/uL (4.70-6.10); White Blood Count 7.47 K/ul (4.8-10.8)
[2023-08-15 07:30] LABS: INR 1.6 (0.9-1.1); Prothrombin Time 16.6 Seconds (9.0-12.0)
[2023-08-15 07:35] LABS: Albumin Globulin Ratio 1.2 (0.9-2); Albumin Level 3.6 gm/dl (3.4-5.0); BUN Creatinine Ratio 30.5 (10-20); Bilirubin,Total 0.5 mg/dl (0.2-1.0); Calcium 9.2 mg/dl (8.6-10.3); Creatinine Clr Calc Pharmacy 106.8 ml/min; Est GFR (African American) 94.9 ml/min; Est GFR (Non-African American) 81.9 ml/min; Potassium 4.4 mmol/L (3.5-5.1); Total Protein 6.6 gm/dl (6.0-8.3)
[2023-08-15] MEDS: INSULIN ASPART PER UNIT CHARGE SC SCH ×2 (08:29→12:22)
[2023-08-15] MEDS: GABAPENTIN 300 MG CAP PO SCH ×2 (08:30→14:37)
[2023-08-15] MEDS: PANTOprazole 40 MG TAB PO SCH (08:30)
[2023-08-15] MEDS: CITALOPRAM 20 MG TAB PO SCH (08:30)
[2023-08-15] MEDS: CEROVITE ADV FORMULA TAB PO SCH (08:30)
[2023-08-15] MEDS: carvediloL 6.25 MG TAB PO SCH (08:30)
[2023-08-15] MEDS: POLYETHYLENE (MIRALAX) 17 GM PACK PO SCH ×2 (08:31→13:53)
[2023-08-15] MEDS: PSYLLIUM or GUAR GUM FIBER POWDER PACKET PO SCH (08:32)
--- NOTE | 2023-08-15 13:20 | Discharge Summary ---
Date of Service August 15, 2023 Admission HPI Per Admitting Provider Pt is 67 yo M with PMH HTN, HLD, DM2 w/ neuropathy, PAD/PVD, pAF, TOSIN, insomnia, depression, CHF, GERD, gout presenting with foot pain. Pt reports ongoing R foot and ankle pain for past few months. He does have an o pen wound of posterior ankle as well. He did see vascular surgery recently and his bypass surgery is scheduled approximately 1 week from now. Pt notes over the past month his pain has acutely worsened and associated with some warmth and swelling of the foot which has caused significant pain with ambulation. Notes his ankle wound has grown and become malodorous w/ purulent drainage. Also reports subjective fever/chills over past month. He was started on doxycycline recently on 07/27. Pt arrived to ER hemodynamically stable. Initial evaluation significant for Hgb 11.9, INR 2.8, Mg 1.3, troponin 107 -> 99, negative UA, EKG demonstrating AF without significant ischemic change. R ankle XR does not have any obvious bony abnormalities. ER interventions include Mg 2g IV, Zosyn, daptomycin. At present, pt reports continued pain. No new complaints. Admission Exam Per Admitting Provider General: tired-appearing, no acute distress HEENT: PERRL, EOMI, conjunctivae clear without injection, anicteric sclerae, moist mucous membranes, clear oropharynx without exudate or erythema Neck: supple, trachea midline, no thyromegaly, no JVD, no cervical lymphadenopathy CV: Irregularly irregular rhythm, normal rate, normal S1 and S2, no murmurs Resp: CTAB, no increased work of breathing, no crackles or wheezes Abd: Soft, nontender, nondistended, no guarding or rebound, no hepatosplenomegaly MSK: Normal bulk of all four extremities Neuro: AOx3, no focal motor deficits though diminished sensorium of distal RLE compared to LLE Skin: stasis dermatitis changes of distal RLE along with mild warmth, swelling and overlying scattered erythema. Posterior ankle ulcerated wound with notable eschar and necrotic debris, scant purulent drainage expressed, very tender to palpation Principal Diagnosis Right ankle ulcer Discharge Exam General: Alert. Oriented to person, time, and place. Afebrile. No acute distress. Cardiac: Regular rate and rhythm, no murmurs/rubs/gallops. Respiratory: Clear to auscultation bilaterally, no wheezes/rales/rhonchi. No increased work of breathing. Symmetrical chest rise. No respiratory distress. Abdomen: Soft, nontender, slightly distended. Bowel sounds present. Lower Extremities: Right lower extremity swelling, bandage covering ankle and foot clean/dry, no lower extremity erythema bilaterally; left lower extremity swelling without tenderness or erythema, left fist metatarsal amputated. Discharge Data Allergies Allergy/AdvReac Type Severity Reaction Status Date / Time cephalexin AdvReac Severe unknown Verified 08/02/23 22:51 organ elevated enzymes Consultations 08/02/23 23:10 ED Decision to Admit Stat 08/03/23 00:53 Consult Podiatry Routine 08/04/23 18:54 Consult Vascular Surgery Routine Procedures Performed Operation Date: 08/11/23 07:00 Actual Procedures p Left Achilles Tendon Debridement and Application of Wound Vac(Left) - Dean Rush, EVIE, MS Ordered Studies 08/03/23 00:53 MRI Ankle [MR ankle RT wo/w con] Routine MRI Foot [MR foot RT wo/w con] Routine 08/03/23 13:30 US arterial duplex LE RT Routine 08/09/23 07:13 EV angio LE RT Routine Hospital Course (1) Foot pain, right: (2) Open ankle wound: (3) Elevated troponin: (4) Hypomagnesemia: (5) Anemia: (6) HTN (hypertension): (7) Dyslipidemia: (8) DM type 2 (diabetes mellitus, type 2): (9) Atrial fibrillation: (10) Sleep apnea: (11) Congestive heart failure: (12) GERD (gastroesophageal reflux disease): (13) Depression: (14) Gout: (15) Insomnia: Plan Pt is a 67 yo male who presents to the hospital on 08/03/23 for R ankle ulcer. S/p repeat ulcer debridement on 08/11/23 with wound vacuum placement. Right ankle ulcer (Acute, stable) - XR of R ankle w/o obvious bony erosions/change concerning for osteomyelitis; Patients MRI results favored acute osteomyelitis of the calcaneus, but bone biopsy showing NO changes consistent with osteomyelitis - diabetic vs poor peripheral vascularization, likely a mix of both contributing to his current condition - Podiatry following: s/p debridement on 08/03/23 and repeat on 08/11/23 and wound vacuum placement Culture showing Pseudomonas and MSSA and Bactereoides Bone pathology not showing osteomyelitis. Follow up with podiatry clinic after discharge. - s/p 10 days of Zosyn - discharge today with HH for wound care and wound vacuum Peripheral Vascular Disease (Chronic, stable) - Doppler of the lower extremities revealed hemodynamically significant stenosis with monophasic waveforms in the calf vessels. Elevated velocities are in the mid right peroneal artery. Vascular surgery -- RLE angio with no significant flow obstruction. Atrial fibrillation (Chronic, stable) - in afib on admission, rate controlled - Warfarin re-started 07/11/23 at 8mg. Currently at home dose (4mg). Patient to continue home dose after discharge. INR today 1.6 Hgb stable -- today 10.5 Right ankle "pop" (Resolved) - MRI of ankle on admission showing "previous Achilles repair. No full-thickness tear. Moderate Achilles tendinopathy with mild partial thickness tear of the Achilles". - X-Ray of ankle showing no fractures or dislocations; osteoarthritis noted. - No intervention required - Continue pain management after discharge Constipation (Resolved) - Continue home Metamucil and scheduled Miralax TID Elevated troponin (Resolved) - trop elevated 107, downtrended to 99 - EKG showed no significant ST changes - likely secondary to demand from acute illness + atrial fibrillation + infection from open ankle wound Hypomagnesemia (Resolved) - Last lab 1.7 Anemia (Chronic, stable) -possibly due to chronic disease; no concern for bleeding HTN (hypertension) (Chronic, stable) -Continue carvedilol, eplerenone Dyslipidemia (Chronic, stable) -Pt is not on a statin despite his multiple comorbidities including DM2 w/ complication leading to PAD/PVD -To be discussed with PCP DM type 2 (diabetes mellitus, type 2) (Chronic, stable) -DM2 w/ complications of vascular disease -Hold home metformin, was previously on Trulicity per EMR -Lantus, SSI -Continue gabapentin and Celexa for neuropathy - last HA1c 6.2% on 08/03 Sleep apnea (Chronic, stable) -CPAP HS Congestive heart failure (Chronic, stable) -CXR does not demonstrate congestion -Continue carvedilol, eplerenone GERD (gastroesophageal reflux disease) (Chronic, stable) -Continue omeprazole Depression (Chronic, stable) -Continue Celexa Gout (Chronic, stable) -Continue febuxostat Insomnia (Chronic, stable) -Continue Seroquel Patient evaluated at bedside and found to be clinically and hemodynamically stable. He was found stable and fit to be discharged today. Total Time Total Time Spent Total Time Spent (In Minutes): <30 Discharge Plan Discharge Items Patient Disposition: Home - Self-Care Reason For Visit: POSSIBLE OSTEOMYELITIS Discharge Diagnosis: right ankle ulcer Activity: Per Instructions section Non-emergency contact: Primary Care Provider Call non-emergency contact if: your symptoms worsen and your temperature is above 101 Follow-up/Referrals: Dean Salas PA-C [Primary Care Provider] - 08/18/23 11:00 am Diet: Carb Consistent or DM2 and Heart Healthy Addtl Attending Provider Instructions: You were admitted to the hospital for management of an ulcer in your right ankle. Your ulcer was debrided and cultures grew certain bacteria that were adequately overed by the Zosyn (antibiotic) you had during your admission. Home health was coordinated so you could have help coming to your home for management of your bandages and wound vacuum. We advise you to follow up with Dr. Rush (psychologist personnel) in his clinic for follow up of your ulcer and the progression of his healing. A discharge summary will be sent to your primary care physician to ensure continuity of care. Please bring this discharge summary with you to your next office appointment so that your provider can review it at that time. Follow-up appointments: Make a follow-up appointment with your PCP within the next week. It is very important that you follow up with them shortly after discharge from the hospital. Keep all your follow-up appointments as already scheduled. If you cannot make an appointment, notify your provider. Medications: Your medication list has been reviewed and reconciled upon discharge to ensure accuracy and continuity of care. An updated list of all your medications is included with your hospital discharge paperwork. Please review this list closely, and make note of any changes. If you have any issues filling these prescriptions, please call [phone] and ask to leave a message for Dr. Bhatti. Take your medications as instructed; do not skip a dose of your medicines. Make sure all of your doctors know every medicine you are taking (including [id number] medicines, vitamins, and supplements). Call your primary care provider before taking any new medicines (including over- the-counter medicines, vitamins, and supplements), because some of these may interact with your current medications, or may make your symptoms worse. Tell your primary care provider if you cannot afford your medications. CONTACT YOUR PRIMARY CARE PROVIDER if you experience any of the following: Worsening of symptoms Fever, chills, or fatigue Difficulty following your treatment plan, or difficulty taking medications CALL 911 OR GO TO THE EMERGENCY DEPARTMENT if you experience any of the following: Sudden, severe abdominal pain or nausea/vomiting Severe chest pain, or chest pain that radiates (moves) to your jaw or arm Sudden, severe shortness of breath or difficulty breathing Thank you for allowing us to participate in your care. Pending Studies at Discharge: No Stand-Alone Forms: My [facility], Smoking Cessation Medications and DC Order Prescriptions: Continued metformin 500 mg tablet 1,000 mg PO BID carvedilol 12.5 mg tablet 6.25 mg PO BID citalopram 20 mg tablet 20 mg PO DAILY eplerenone 25 mg tablet 25 mg PO DAILY cholecalciferol (vitamin D3) [Vitamin D3] 50 mcg (2,000 unit) Tablet 50 mcg PO DAILY febuxostat 40 mg tablet 120 mg PO DAILY Rx Instructions: 3 tablet dose insulin glargine [Basaglar KwikPen U-100 Insulin] 100 unit/mL (3 mL) Insulin Pen 30 unit SUBCUT PM gabapentin 300 mg Capsule 300 mg PO TID tramadol 50 mg tablet 50 mg PO Q6 MDD 200mg PRN (Reason: Pain) warfarin [Jantoven] 4 mg tablet 4 mg PO DAILY geriatric [id number] Tablet 1 tab PO DAILY quetiapine 25 mg tablet 25 mg PO HS omeprazole 40 mg capsule,delayed release(DR/EC) 40 mg PO DAILY doxycycline monohydrate 100 mg tablet 100 mg PO DAILY Rx Instructions: take for 10 days...ordered 07/27/23 Discharge Orders: Discharge Order (Routine); Ordered 08/15/23 Ordered By: Sara Bhatti Admission Data Admit Date/Time: 08/03/23 00:53 Attending Provider: Buddy Avina Admit Provider: Pina Cho Primary Care Provider: Dean Salas Other Providers: [facility]; Disconnect; Myron Snow; Dean Rush; Francis Correia Other Interventions: Discharge Summary Assessment (RN) Last Done: 08/15/23 13:30 Supervising Physician Co-Signing Physician Notes I personally examined the patient and verified all brooks points of history and exam, discussed case, and agree with decision making with Dr Bhatti setup for home. vitals noted nad heent nc at mmm breathing unlabored no accesory muscles good effort skin no rashes no pallor or icterus Right ankle ulcer in setting of Peripheral arterial disease No osteomyelitis. Cx grew Pseudomonas/MSSA -s/p debridement by podiatry 08/04. -treated wtih zosyn. -Angiogram 08/09 -repeat debridement 08/11 with wound vac placement A fib -rate controlled. warfarin resumed, INR 1.6 DVT prophylaxiswarfarin safe to return home per PT/OT eval. for home today - all set up. INR ~2 days as outpt Otherwise as above Resident Activity Tracking Resident Involvement: Resident Care Provided Care Provided: Adult Hospital Medicine
--- NOTE | 2023-08-15 18:20 | Billing Data ---
Date of Service August 15, 2023 Coding Level of Care Code 97059 IN/OBS DISCH 30 MIN/LESS
--- NOTE | 2023-08-17 10:29 | Coding Query ---
To promote full compliance with coding requirements relating to patient care, provider participation is requested in all cases of [employer] uncertainty. Please assist us with the question(s) below: Coding Question(s): The diagnosis below was documented in the H&P and through the 08/04 Progress Note, then subsequently fell off all further documentation. Please indicate if it is still a possible diagnosis or ruled out. Physician's Response(s): LIKELY TYPE 2 SD - (documentation from H&P through the 08/04 PN documents, " Troponin elevation likely type II SD/demand from acute illness + atrial fibrillation", and then the likely Type 2 SD documentation drops off and only demand is documented) ( x ) Diagnosed and POA ( ) Diagnosed and not POA ( ) Ruled out ( ) Other (please specify) MTDD
== END 2023-08-15 16:05 | disposition home health service (06) | DRG 981 ==
LOC: ED 18:07 → 2N 08-03 00:53 → SUATTDRO 08-03 00:53 → 2N 08-03 01:39 → 3N 08-11 22:00